=== PATIENT | male | born 1945 | race Caucasian/White ===

== ENCOUNTER 2017-05-10 08:23 | Day surgery (SDC) | payer MEDICARE, MEDICAID ==
--- NOTE | 2017-04-26 11:37 | HP ---
PREOPERATIVE HISTORY AND PHYSICAL: DATE OF SURGERY/ADMISSION: 05/10/17 SHAKE OUT WORKER: Dr. Garcia. PROCEDURE: Left wrist carpal tunnel release. CHIEF COMPLAINT: Left hand numbness and tingling. HISTORY OF PRESENT ILLNESS: This is a 71-year-old male who complains of numbness and tingling in his left hand for several months. He has had a nerve conduction study performed years ago that revealed carpal tunnel syndrome. Recently, his symptoms are much worse, especially at nighttime. He is waking up in the middle of the night very frequently with numbness in his hand and it is quite bothersome. It limits his activities to some degree. The patient denies injury. He is interested in surgical intervention at this time in the form of a left wrist carpal tunnel release and has consented to proceed. He is treated by Dr. Garcia for atrial fibrillation and he is on Coumadin. We will plan on having him stay on his Coumadin perioperatively. He has been cardioverted several times because of being symptomatic from the atrial fibrillation, specifically being short of breath. The most recent cardioversion was in December or January 2017. He has followed regularly with Dr. Garcia and we will receive medical clearance from Dr. Garcia prior to proceeding with surgery. PAST MEDICAL HISTORY: 1. Atrial fibrillation. 2. Hypertension. PAST SURGICAL HISTORY: 1. Left knee surgery. 2. Cholecystectomy. 3. Tonsillectomy. CURRENT MEDICATIONS: 1. Amiodarone HCL 200 mg daily. 2. Lisinopril 2.5 mg daily. 3. Metoprolol tartrate 50 mg daily. 4. Warfarin sodium 5 mg, alternate with 6 mg as directed by PCP. ALLERGIES: No known drug allergies. FAMILY MEDICAL HISTORY: Noncontributory. SOCIAL HISTORY: The patient is retired. He is a former smoker, he quit in 1978. He denies recreational drug use. He does admit to alcohol use on occasion. REVIEW OF SYSTEMS: General: Negative for fevers, chills, or night sweats. No known anesthesia problems. HEENT: Negative for headache, lightheadedness, or syncopal episodes. Integumentary: Negative for abrasions, lesions, or open wounds. Cardiothoracic: Positive for history of hypertension and atrial fibrillation. Negative for chest pain, palpitations, or edema. Pulmonary: Negative for shortness of breath with exertion, chronic cough, COPD. GI: Negative for nausea, vomiting, diarrhea, constipation, or GERD. : Negative for nocturia, urinary frequency, urgency, history of UTIs, or kidney problems. Musculoskeletal: Positive for current complaint. Negative for chronic or intermittent back pain. Neurological: Negative for history of seizure, stroke, or epilepsy. Negative for anxiety or depression. Endocrine: Negative for diabetes or thyroid issues. Hematologic: Positive for easy bruising and bleeding secondary to being on warfarin. Negative for history of DVT. Infectious Disease: Negative for history of MRSA, hepatitis C, or HIV. PHYSICAL EXAMINATION GENERAL: Well-developed, well-nourished 71-year-old male in no acute distress. He is awake, alert and oriented x3. VITAL SIGNS: Height 5 feet 11 inches, weight 215 pounds. Pulse rate 52, blood pressure 118/90. HEENT: Normocephalic, atraumatic. Pupils are equal, round, and reactive to light and accommodation. NECK: Supple. No palpable lymph nodes. Throat is clear. PULMONARY: Lungs are clear to auscultation bilaterally. No wheezes, rales, or rhonchi. CARDIOVASCULAR: Regular rate and rhythm. S1, S2. No murmurs, rubs, or gallops. No edema. ABDOMEN: Positive bowel sounds, soft, nontender. NEUROLOGICAL: Alert and oriented x3. Cranial nerves II through XII are intact. Sensation is intact to light touch. MUSCULOSKELETAL: On exam of his right upper extremity, he has decreased sensation to light touch in the median nerve distribution, specifically the middle finger. He has normal sensation in the ulnar nerve distribution. Positive median nerve compression test. Negative Phalen's test. There is mild weakness with thumb abduction and some mild thenar atrophy noted. IMPRESSION: Left wrist carpal tunnel syndrome. PLAN: The patient is scheduled to undergo a left wrist carpal tunnel release with Dr. Ogden on 05/10/17. He will return to the office 10 to 14 days postoperatively for followup and suture removal. A prescription for Ultracet was e-scribed to the patient's pharmacy for postoperative pain management. We will obtain clearance from Dr. Garcia prior to proceeding with surgery and the patient will stay on his Coumadin perioperatively. TOY RAMOS [id number]/[facility] #: [id number] [facility]ITAL[facility]
[2017-05-10] MEDS ORDERED: Buffered Lidocaine 0.9% SYRIN* 5 ML/SYR SYRINGE ONE (08:34)
[2017-05-10] MEDS ORDERED: Lidocaine 1% INJ* 10 MG/ML 30 ML SDV ONE (08:37)
[2017-05-10] MEDS ORDERED: Midazolam* 1 MG/ML 2 ML VIAL (2 MG) ONE ×2 (08:53→09:35)
[2017-05-10] MEDS ORDERED: fentaNYL* 50 MCG/ML 2 ML VIAL (100 MCG VIAL) ONE (08:53)
[2017-05-10] MEDS ORDERED: Propofol* 10 MG/ML 20 ML BTL IV PUSH ONE (09:44)
[2017-05-10 10:19] VITALS: BP 109/72
--- NOTE | 2017-05-11 02:39 | OP ---
DATE OF OPERATION: 05/10/17 [facility] DATE OF : 45 SURGEON: Dr. Ogden. WARP KNITTER HELPER: TOY Quiroga. ANESTHESIOLOGIST: Tia Morrison MD ANESTHESIA: Local MAC. PRE-OP DIAGNOSIS: Left carpal tunnel syndrome. POST-OP DIAGNOSIS: Left carpal tunnel syndrome. PROCEDURE: Left carpal tunnel release. ESTIMATED BLOOD LOSS: Zero. TOURNIQUET TIME: Five minutes. INDICATIONS FOR PROCEDURE: Stalin is a 71-year-old man with numbness and tingling in the median nerve distribution of his left hand. He presents for left carpal tunnel release. DESCRIPTION OF PROCEDURE: The patient was brought to the operating room, was given a sedation anesthetic, and a local infiltration of 10 cc of 1% plain lidocaine in the palm of his left hand. The skin of his left hand and forearm were prepped and draped in the usual sterile fashion. The hand and forearm were exsanguinated and the tourniquet elevated to 250 mmHg. A longitudinal incision was made in the palm in the line with the ring finger, dissected through the subcutaneous tissue down to the transverse carpal ligament. The ligament was divided sharply with a knife, and then more proximally with the scissors. The nerve was dissected free from the surrounding tissue and there was an area of moderate compression in the mid portion of the ligament. The wound was irrigated and skin edges were reapproximated with 4- 0 nylon suture. The wound was dressed with Xeroform, 4x4, Webril, and an Kenneth wrap. The patient tolerated the procedure well and was brought to the recovery room in good condition. [id number]/[facility] #: [id number] [facility]
== END 2017-05-10 10:29 | disposition home or self-care (01) ==
LOC: OREAST 08:23
PROVIDERS: ATTEND Orthopaedic Surgery
DX: G56.02 Carpal tunnel syndrome, left upper limb (principal); I48.91 Unspecified atrial fibrillation; Z79.01 Long term (current) use of anticoagulants; Z87.891 Personal history of nicotine dependence
CPT/HCPCS: J2001; J2250; J2704; J3010

== ENCOUNTER 2017-06-30 08:45 | Inpatient (IN) | payer MEDICAID, MEDICARE ==
[2017-06-30] MEDS ORDERED: Midazolam* 1 MG/ML 5 ML VIAL (5 MG) ONE (08:55)
[2017-06-30] MEDS ORDERED: Aspirin TAB* 325 MG ONE (08:56)
[2017-06-30] MEDS ORDERED: NS 0.9% 1000 ML* 1,000 ML IV ONE ×2 (09:02→10:18)
[2017-06-30] MEDS ORDERED: Aspirin Low Dose CHEW TAB* 81 MG PO ONE (09:02)
[2017-06-30] MEDS ORDERED: Midazolam* 1 MG/ML 5 ML VIAL (5 MG) SLOW PUSH ONE (09:04)
--- NOTE | 2017-06-30 09:22 | RAD ---
HISTORY: Chest pain COMPARISONS: September 07, 2015 VIEWS:1: Single frontal portable view of the chest at 9:05 AM FINDINGS: LINES AND TUBES: None. CARDIOMEDIASTINAL SILHOUETTE: The cardiac silhouette is enlarged. The cardiomediastinal silhouette is otherwise normal for portable technique. PLEURA: The costophrenic angles are sharp. No pleural abnormalities are noted. LUNG PARENCHYMA: There is a mild diffuse reticular pattern with indistinct pulmonary vessels. ABDOMEN: The upper abdomen is clear. There is no subphrenic gas. BONES AND SOFT TISSUES: No bone or soft tissue abnormalities are noted. IMPRESSION: CARDIOMEGALY WITH MILD PULMONARY INTERSTITIAL EDEMA
[2017-06-30 09:26] LABS: Hematocrit 44 % (42-52); Mean Corpuscular HGB Conc 34 g/dl (31-36); Mean Corpuscular Hemoglobin 29 pg (27-31); Mean Corpuscular Volume 84 fL (80-94); Mean Platelet Volume 8 um3 (7.4-10.4); Red Blood Count 5.28 10^6/ul (4.0-5.4); Red Cell Distribution Width 14 % (10.5-15); White Blood Count 11.1 10^3/ul (3.5-10.8)
[2017-06-30 09:41] LABS: Albumin 3.9 g/dL (3.2-5.2); BUN/Creatinine Ratio 16.2 (8-20); EGFR African American 83.7 (>60); EGFR Non-African American 65.1 (>60); Globulin 2.2 g/dL (2-4); Potassium 3.8 mmol/L (3.5-5.0); Total Bilirubin 1.5 mg/dL (0.2-1.0); Total Protein 6.1 g/dL (6.4-8.9)
[2017-06-30 09:44] LABS: Troponin I 0.01 ng/mL (<0.04)
[2017-06-30] MEDS ORDERED: Furosemide IV* 10 MG/ML VIAL (40 MG) IV SLOW PU ONE (10:07)
[2017-06-30] MEDS ORDERED: cefTRIAXone(*) 1 GM in NS 0.9% 50 ML* 50 ML IVPB ONE (10:20)
[2017-06-30] MEDS ORDERED: Azithromycin IV(*) 500 MG in NS 0.9% 250 ML* 250 ML IVPB ONE (10:20)
[2017-06-30] MEDS ORDERED: Acetaminophen TAB* 325 MG PO PRN (11:37)
[2017-06-30] MEDS ORDERED: Enoxaparin(*) 100 MG/ML SYR SUBCUT ONE (11:58)
[2017-06-30 11:59] LABS: Magnesium 1.5 mg/dL (1.9-2.7)
[2017-06-30] MEDS ORDERED: Metoprolol Tartrate TAB* 25 MG PO SCH (12:00)
[2017-06-30 12:09] LABS: TSH (Thyroid Stimulating Horm) 4.11 mcIU/mL (0.34-5.60)
--- NOTE | 2017-06-30 14:52 | CONSULT ---
Subjective Date of Service: 06/30/17 Interval History: Date of admission and consult: 06/30/2017 Primary Care Physician: Luis M Argueta MD Skydiving Instructor: Dr. Garcia Service: Hospitalist CC: chest pain, lightheadedness Reason for consult: Wide complex tachycardia HPI: Mr. Villeda is a 72 year old man with a history of highly symptomatic atrial fibrillation and flutter on amiodarone with a mild cardiomyopathy followed by Dr. Garcia. This morning about 3:00 AM he had coughing spells and pressure in his chest like a vice. He felt nauseated. He was lightheaded but no more than usual when he is in an arrhythmia. This felt different than his usual arrhythmia, it was worse but he cannot be specific how. He eventually called a friend who called EMS. He was found with a wide complex tachycardia. When he came to the ER he was diaphoretic and looked ill. I later discussed with Dr. Sosa that a cuff pressure was not able to be obtained due to the rapid rate but he did have some amount of radial pulse that was able to be felt. He ultimately underwent urgent cardioversion with sedation. He now feels well and denies any dyspnea or chest pain or lightheadedness. Yesterday he was briefly dizzy but this resolved. He has otherwise been feeling well. He has received IVF, IV abx and IV lasix. PMH: Hypertension Atrial Fibrillation Asthma arthritis bleeding problems Surgical Hx: Knee Surgery - left Gallbladder, Tonsillectomy Cardioversion - (09/03/2013) CV to NSR no complications Cardioversion - (12/21/2013) In [facility] with SOB and rapid A. FIb CV to NSR Cardioversion - (12/03/2016) CV to NSR FH: Hypertension, Stroke. SH: Marital: Single.Lives With: Alone.Occupation: Retired. Personal Habits: Smoking: Patient is a former smoker.Cigarette Use: Former Cigarette Smoker.Alcohol: Denies alcohol use.Drug Use: Denies Drug Use.Daily Caffeine: Consumes on average 5-10 cups of regular coffee per day, Consumes on average 3 sodas per day.Exercise Type: Exercises regularly. Medications Active Medications: Acetaminophen (Tylenol Tab*) 650 mg PO Q4H PRN PRN Reason: FEVER/PAIN Amiodarone HCl (Cordarone Tab*) 200 mg PO DAILY [facility] Aspirin (Aspirin Low Dose Tab*) 81 mg PO DAILY [facility] Atorvastatin Calcium (Lipitor*) 40 mg PO 1700 [facility] Enoxaparin Sodium (Lovenox(*)) 100 mg SUBCUT ONCE ONE Stop: 07/01/17 00:02 Lisinopril (Prinivil Tab*) 2.5 mg PO DAILY [facility] Metoprolol Tartrate (Lopressor Tab*) 25 mg PO Q8H [facility] Home Medications: Warfarin TAB(*) [Coumadin TAB(*)] 3 mg PO DAILY 09/03/13 [History Confirmed ] Amiodarone TAB* [Cordarone Tab*] 200 mg PO DAILY 12/21/13 [History Confirmed ] Lisinopril [Lisinopril 2.5 MG-] 2.5 mg PO DAILY 12/03/16 [History Confirmed ] Metoprolol Tartrate TAB* [Lopressor TAB*] 50 mg PO DAILY 06/30/17 [History Confirmed 06/30/17] Review of Systems - Measurements Intake and Output: Intake and Output Last 24 Hours 06/28/17 06/29/17 06/30/17 07/01/17 06:59 06:59 06:59 06:59 Intake Total 1250 Balance 1250 Intake: IV Fluids 1250 - Review of Systems Constitutional Symptoms: Negative: Weight Gain, Weight Loss, Weakness, Fatigue, Fever, Night Sweats HEENT: Negative: Change in Hearing, Vertigo Eyes: Negative: Change in Vision, Double Vision Thyroid: Positive: Sweatiness Negative: Heat Intolerance, Tremor, Frequent Defecation, Primary Hypothyroidism, Primary Hyperthyroidism, Weight Loss, Weight Gain Pulmonary: Positive: Cough Negative: Normal, Sputum, Hemoptysis, Wheezing, Respiratory Distress, Shortness of Breath, COPD, Asthma, Exercise Intolerance, Home Oxygen, Other Cardiology: Positive: Chest Pain, Shortness of Breath, Faintness Negative: Swelling of Ankles, Peripheral Vascular Dis, Edema, Syncope, Claudication, Paroxysmal Nocturnal Dyspnea, Orthopnea Gastroenterology: Positive: Nausea Negative: Abdominal Pain, Vomiting, Anorexia, Indigestion, Difficulty Swallowing, Heartburn, Constipation, Diarrhea, Haematemesis, Melena Genital - Urinary: Negative: Dysuria, Hematuria Musculoskeletal: Negative: Joint Pain, Joint Stiffness, Arthritis, Osteoporosis, Low Back Pain Endocrinology: Negative: Obesity, Diabetic Foot Ulcers, Polydipsia, Polyuria Hematologic/Lymphatic: Positive: Use of Anticoagulant Negative: Anemia, Easy Brusing, Hx Leukemia, Hx Lymphoma, Use of Antiplatelet Drugs, Other Neurology: Negative: Headaches, Migraines, Change in Vision, Diplopia, Change in Balancing, Change in Coordination, Change in Memory, Change in Speech, Change in Sphincter Function, Change in Walking, Numbness\Paresthesiae Psychiatry: Negative: Depression, Anxiety, Weight Change, Guilt Feelings Allergic/Immunologic: Negative: Hx Anaphylaxis, Hx Angioedema, Hx HIV Review of Systems Statement: All other review of systems negative, unless stated above. Objective Vital Signs: Temp Pulse Resp BP Pulse Ox 99.2 F 58 20 95/78 98 06/30/17 13:47 06/30/17 13:47 06/30/17 13:47 06/30/17 13:47 06/30/17 13:47 Appearance: nad, pleasant Ears/Nose/Mouth/Throat: Clear Oropharnyx Neck: NL Appearance and Movements; NL JVP, Trachea Midline Respiratory: Symmetrical Chest Expansion and Respiratory Effort, - - crackles left base Cardiovascular: NL Sounds; No Murmurs; No JVD, RRR, No Edema Abdominal: NL Sounds; No Tenderness; No Distention Extremities: No Edema Skin: No Rash or Ulcers Neurological: Alert and Oriented x 3 Laboratory Results: 06/30/17 09:16 06/30/17 09:16 INR (Anticoag Therapy) 1.58 (0.89-1.11) H 06/30/17 09:16 APTT 29.4 seconds (26.0-36.3) 06/30/17 09:16 Total Bilirubin 1.50 mg/dL (0.2-1.0) H 06/30/17 09:16 AST 18 U/L (13-39) 06/30/17 09:16 ALT 28 U/L (7-52) 06/30/17 09:16 Alkaline Phosphatase 67 U/L (34-104) 06/30/17 09:16 B-Natriuretic Peptide 45 pg/mL (-100) 06/30/17 09:16 Total Protein 6.1 g/dL (6.4-8.9) L 06/30/17 09:16 Albumin 3.9 g/dL (3.2-5.2) 06/30/17 09:16 Globulin 2.2 g/dL (2-4) 06/30/17 09:16 Albumin/Globulin Ratio 1.8 (1-3) 06/30/17 09:16 TSH 4.11 mcIU/mL (0.34-5.60) 06/30/17 09:16 mg 1.5 06/30/17 06/30/17 09:16 12:18 Troponin I 0.01 0.09 H* Diagnostic Imaging: Cardiac Testing: Echocardiogram - (07/21/2015) Mildly reduced LV function EF 45-50% Mild AR and MR Moderate TR Mild Pulm HTN Moderately Dilated Asc Aorta 4.3 cm Stress Test - (10/03/2009) Chemical Nuclear Stress: Mild inferior ischemia, TID 1.13 No LV analysis EKG Data: EKG 08/2013: Rate controlled atrial flutter EKG 11/28/2016: AFib/flutter with IVCD/LAD with LBBB configuration EKG 05/01/2017: Sinus bradycardia, IVCD/LAD with LBBB configuration EKG [facility] 06/30/2017: WCT rate 170 bpm, probable p waves visualized just prior to QRS complex right precordial leads, clear axis change, clear axis change in 1/aVL/and inferior leads. ST elevation in aVR with ST depression inferior leads. EKG post-cardioversion 06/30/2017: NSR, IVCD/LAD with LBBB configuration, ST depression horizontal V4-V6 Assessment/Plan Stalin Villeda is a 72 year old man with a history of highly symptomatic paroxysmal atrial fibrillation/flutter on amiodarone and warfarin, hypertension , mild cardiomyopathy presents with highly symptomatic wide complex tachycardia s/p urgent electrical cardioversion now asymptomatic. Mg was 1.5. Now asymptomatic s/p cardioversion. No syncope. - Ok to transfer to telemetry - Check AM EKG - Check echo for LVEF evaluation - Replace Mg and K - Start daily oral magnesium (ordered) - Change metoprolol to 25 mg PO TID for now (ordered). Depending on LVEF would change his tartrate to succinate or twice daily tartrate, I do not think he was being covered by a beta-bhaskar at time of arrhythmia. - Continue amiodarone 200 mg PO daily - Give lovenox therapeutic x 1 around midnight (ordered) - Hold warfarin - Will discuss with patient regular convenience recycle center tech, Dr. Garcia tomorrow. Further evaluation and management to be determined. Thank you for allowing me to participate in the cardiovascular care of this patient. Please do not hesitate to contact me with questions or concerns.
[2017-06-30] MEDS: Metoprolol Tartrate TAB* 25 MG PO SCH ×2 (16:16→22:33)
--- NOTE | 2017-06-30 16:26 | HP ---
ATTENDING ADDENDUM NOW INCLUDED ON THIS REPORT * CC: Dr. Argueta; Dr. Martinez * HISTORY AND PHYSICAL: DATE OF ADMISSION: 06/30/17 PRIMARY CARE PROVIDER: Dr. Argueta. ATTENDING PHYSICIAN WHILE IN THE HOSPITAL: Yancy Gamino MD * (report dictated by Morris Alonso NP) CONSULTING CAKE MAKER: Dr. Martinez. CHIEF COMPLAINT: 1. Chest pressure. 2. Palpitations. HISTORY OF PRESENT ILLNESS: Mr. Villeda is a 72-year-old male patient. He has a history of hypertension, AFib, asthma, and arthritis. He comes in to the ER today, stating that he woke up around 4:30 this morning. He was not feeling very well. He felt shaky, particularly in his arms. He felt palpitations in his chest, he was sweaty, he felt short of breath. He was having some chest pressure. He says his chest felt like it was in a vice. He waited until about 8 o'clock and things were not getting any better, so he called his friend who called 911. The patient denies any syncope. He states he has been taking his current medications very long. He has not missed any of his medications. There has been no change in medications. He does not admit to having any nausea , vomiting, or diarrhea. He does state that he has not had any fevers or cough. 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 He came into the ER and ultimately was found to be in what appeared to be a wide complex tachycardia. It may have been AFib with aberrancy, but he did have significant ST depressions. It was noted that his blood pressure was around the 80s. There was concern that he was unstable and he was actually delivered a shock of 100 joules and he converted into a sinus rhythm and because of this, we were asked to evaluate for admission. PAST MEDICAL HISTORY: Significant for: 1. Hypertension. 2. AFib. 3. Asthma. 4. Arthritis. PAST SURGICAL HISTORY: The patient has had a right upper extremity surgery with pinning. He has had a right total knee replacement and he has had a laparoscopic cholecystectomy. MEDICATIONS: His home meds according to the pill bottles include: 1. Lopressor 50 mg p.o. daily. 2. Lisinopril 2.5 mg daily. 3. Amiodarone 200 mg daily. 4. Warfarin 3 mg daily and 5 mg on Saturday. ALLERGIES: His allergies to medications include no known drug allergies. FAMILY HISTORY: His mother is unknown. She when the patient was 2. The father's history, he does have a history of hypertension and CVA. SOCIAL HISTORY: He is a former smoker. He says he cannot remember when he quit , but he said it was a long time ago. He does not drink alcohol. Surrogate decision maker is his friend, Jane. REVIEW OF SYSTEMS: There is no documented fever. He denied any significant weight change. There is no double vision. There is no ear discharge. He denies having any rhinorrhea. No sore throat, no thyroid enlargement. Denies having any chest pain. There is no orthopnea. There is no nocturnal dyspnea. He denies having any abdominal pain. There is no nausea or any vomiting. There is no dysuria, no frequency. There was no loss of consciousness, no pruritus, and there were no skin ulcerations. Review of 14 systems was completed, all others negative. PHYSICAL EXAMINATION GENERAL: At this time, Mr. Villeda is a 72-year-old male patient. He is sitting in the ER stretcher. He does not appear to be in any acute distress. VITAL SIGNS: Initially when he came in, his blood pressure was 90/70 with a pulse of 172, respirations 28, O2 sat 94%, temperature 99.1. His blood pressure now is 119/70 with a pulse of 66, respirations 20, O2 sat 96%. HEENT: Head is atraumatic and normocephalic. Eyes: EOMs are intact. Sclerae are anicteric and not pale. Throat: Oral mucosa appears to be moist. No oropharyngeal erythema. NECK: Supple. LUNGS: Clear to auscultation. No wheezes, rales, or rhonchi. HEART: Sounds S1, S2. Regular rate and rhythm. No murmurs, rubs, or gallops. ABDOMEN: Soft. It was flat, nontender. Bowel sounds were present. EXTREMITIES: Pulses were 2+ throughout. No peripheral edema. He is able to move all 4 extremities with 5/5 strength. NEUROLOGIC: He is awake, he is alert, he is oriented x3. His tongue is midline. His entertainment dancer were equal. He had no gross focal neurological deficits. SKIN: Intact. LABORATORY DATA/DIAGNOSTIC STUDIES: The labs today revealed a WBC of 11.1, RBC of 5.28, hemoglobin of 15.0, hematocrit of 44, and a platelet count of 206. The INR was 1.58. PTT was 29.4. The sodium was 138, potassium was 3.8, chloride 108, bicarb 21, BUN 18, creatinine 1.11, glucose 125. Lactate 2.7. Calcium 9. Total bili 1.5, AST 18, ALT 28, alk phos 67. Troponin 0.01. Albumin of 3.9. He did have a EKG obtained today, which was post cardioversion. It reveals a sinus rhythm, rate of 87. He had no ST elevations. He did have a left bundle- branch block. The EKG from [facility] does show again wide-complex tachycardia, his rate of 170, he does have diffuse ST depression. Old medical records were reviewed. Last EF was known to be 45% to 40%. ASSESSMENT AND PLAN: Mr. Villeda is a 72-year-old male patient coming in to the ER today with complaints of not feeling feel, shaking, and having fluttering in his chest and chest discomfort. On evaluation, he was found to have a wide- complex tachycardia and being unstable. He was cardioverted. Hospitalist service was asked to evaluate for admission. He will be admitted under observation status for: 1. Wide-complex tachycardia. Certainly, this could be V-tach or possibly could just be AFib with aberrancy. Dr. Martinez was consulted.. The plan at this point is to cycle his troponins. He will be evaluating him. I do note that he takes Lopressor immediate release tartrate once a day in the morning. So, Dr. Martinez and I felt that the patient should split this now to 25 in the morning and 25 at night and see if this helps with better rate control, and we will continue his amiodarone. His INR is 1.5. I have increased his Coumadin and we will continue to follow him closely. 2. Hypertension. Continue meds as prescribed. 3. Atrial fibrillation. Continue his meds as prescribed. We are again changing around the Lopressor and increasing his beta-bhaskar. 4. History of asthma. It is not an active tissue. 5. Arthritis. Follow up with his primary. 6. DVT prophylaxis. He will be placed on SCDs. His INR is 1.58. We are increasing his Coumadin to 5. 7. Code status, full code. 8. Fluids, electrolytes, and nutrition. He can have a heart healthy diet with no caffeine. TIME SPENT: Time spent on the admission was approximately 60 minutes; greater than half the time spent [id number] with the patient, obtaining my history and physical, the other half time was spent going over the plan of care with the patient and implementing the plan of care. I did discuss the plan of care with my attending, Dr. Gamino; she is in agreement. MORRIS ALONSO NP ADDENDUM: Mr. Villeda is a 72-year-old male with history of atrial fibrillation with several cardioversions in the past, on amiodarone and Coumadin, who presents to the hospital with wide-complex ventricular tachycardia with heart rate in the 170s. At this point, he was unstable, diaphoretic, complaining of chest pain with systolic pressures in the 80s. He was cardioverted with 100 joules in the emergency department and after one shock, he converted to sinus rhythm. He is going to be admitted to the intensive care unit for further monitoring. Cardiology consult is going to be obtained. Of note, he was noted to have hypomagnesemia and his magnesium is going to be replaced. YANCY GAMINO MD [id number]/[facility] #: [id number]/[facility] #: [id number] KE[facility]
--- NOTE | 2017-06-30 16:34 | HP ---
HISTORY AND PHYSICAL:* ADDENDUM: Mr. Villeda is a 72-year-old male with history of atrial fibrillation with several cardioversions in the past, on amiodarone and Coumadin, who presents to the hospital with wide-complex ventricular tachycardia with heart rate in the 170s. At this point, he was unstable, diaphoretic, complaining of chest pain with systolic pressures in the 80s. He was cardioverted with 100 joules in the emergency department and after one shock, he converted to sinus rhythm. He is going to be admitted to the intensive care unit for further monitoring. Cardiology consult is going to be obtained. Of note, he was noted to have hypomagnesemia and his magnesium is going to be replaced. [id number]/[facility] #: [id number] [facility]
[2017-06-30] MEDS ORDERED: Warfarin TAB(*) 5 MG PO SCH (17:00)
[2017-06-30] MEDS ORDERED: Magnesium Sulfate 3 GM IV IVPB ONE ×2 (17:00)
[2017-06-30] MEDS: Atorvastatin* 40 MG TAB PO SCH (17:23)
[2017-07-01] MEDS ORDERED: Enoxaparin(*) 100 MG/ML SYR SUBCUT ONE (00:01)
[2017-07-01 05:05] LABS: Hematocrit 40 % (42-52); Hemoglobin 13.8 g/dl (14.0-18.0); Mean Corpuscular HGB Conc 35 g/dl (31-36); Mean Corpuscular Hemoglobin 29 pg (27-31); Mean Corpuscular Volume 84 fL (80-94); Mean Platelet Volume 8 um3 (7.4-10.4); Red Blood Count 4.73 10^6/ul (4.0-5.4); Red Cell Distribution Width 14 % (10.5-15); White Blood Count 7.9 10^3/ul (3.5-10.8)
[2017-07-01 05:16] LABS: BUN/Creatinine Ratio 18.8 (8-20); Blood Urea Nitrogen 18 mg/dL (6-24); CO2 Carbon Dioxide 26 mmol/L (22-32); Calcium 8.6 mg/dL (8.6-10.3); Chloride 110 mmol/L (101-111); Glucose 104 mg/dL (70-100); Magnesium 2.2 mg/dL (1.9-2.7); Sodium 136 mmol/L (133-145)
[2017-07-01 05:20] LABS: Troponin I 0.31 ng/mL (<0.04)
[2017-07-01] MEDS: Metoprolol Tartrate TAB* 25 MG PO SCH ×3 (07:30→22:48)
[2017-07-01] MEDS: Lisinopril TAB* 5 MG PO SCH (08:48)
[2017-07-01] MEDS: Amiodarone TAB* 200 MG PO SCH (08:50)
[2017-07-01] MEDS: Magnesium Oxide TAB* 400 MG PO SCH (08:50)
[2017-07-01] MEDS: Aspirin Low Dose CHEW TAB* 81 MG PO SCH (08:50)
[2017-07-01] MEDS ORDERED: diPHENhydraMINE PO* 25 MG PO SCH (12:26)
[2017-07-01] MEDS ORDERED: Diazepam TAB(*) 5 MG PO SCH (12:26)
[2017-07-01] MEDS ORDERED: Perflutren Lipid Microsphere* 3 ML VIAL ONE (13:27)
[2017-07-01] MEDS: Atorvastatin* 40 MG TAB PO SCH (16:09)
--- NOTE | 2017-07-01 16:23 | ECHO ---
Patient: YENI CANNON [facility] Rec#: [id number] : 1945 Date: 07/01/2017 Age: 72y Height: 182.88 cm / 72.0 in Weight: 99.79 kg / 219.9 lbs Sex: M BSA: 2.22 Room#: 440 Admit Date#: 06/30/2017 Type: Inpatient Referring: Yancy Gamino MD Reading: Mariano Garcia MD Garbage Collector Driver: Brisa Hill TRAVIS CC: Luis M Argueta MD Transthoracic Echocardiogram Indication: V Tach BP: 125/72 HR: 65 Rhythm: NSR Findings History: A-fib/flutter,cardiomyopathy,asthma,arthritis,former smoker,SOB. Technical Comments: The study is technically limited due to patient body habitus. The study is technically limited due to the patient's smoking history. Left Ventricle: The left ventricular chamber size is normal. Mild to moderate concentric left ventricular hypertrophy is observed. Left ventricular systolic function is at the lower limits of normal. The estimated ejection fraction is 45-50%. The patient was unable to perform a Valsalva maneuver. Left Atrium: The left atrium is mildly dilated. Right Ventricle: The right ventricular cavity size is normal. The right ventricular global systolic function is mildly reduced. Right Atrium: The right atrium is mildly dilated. Aortic Valve: The aortic valve is trileaflet. There is mild to moderate aortic regurgitation. There is no evidence of aortic stenosis. Mitral Valve: The mitral valve leaflets appear normal. There is a trace of mitral regurgitation. There is no evidence of mitral stenosis. Tricuspid Valve: The tricuspid valve leaflets are normal. There is mild to moderate tricuspid regurgitation. There is evidence of moderate pulmonary hypertension. There is no tricuspid stenosis. Pulmonic Valve: The pulmonic valve appears normal. There is mild pulmonic regurgitation. There is no pulmonic stenosis. Pericardium: A pericardial fat pad is visualized. Aorta: There is mild dilatation of the ascending aorta.3.6 cm There is no dilatation of the aortic arch. There is moderate dilatation of the aortic root. Pulmonary Artery: The main pulmonary artery appears normal. Venous: The inferior vena cava is dilated. There is an approximate 50% respiratory change in the inferior vena cava dimension. Contrast: Definity was used to optimize study. A total of 5ml used. Intravenous contrast was used to enhance endocardial border definition. Summary: There are no significant changes when compared to the previous study done on 07/21/16 Conclusions Mild to moderate concentric left ventricular hypertrophy is observed. Left ventricular systolic function is at the lower limits of normal. The estimated ejection fraction is 45-50%. There is mild to moderate aortic regurgitation. There is no evidence of aortic stenosis. There is a trace of mitral regurgitation. There is mild to moderate tricuspid regurgitation. There is evidence of moderate pulmonary hypertension. Measurements Name Value Normal Range RVIDd (AP) 2D 2.8 cm (0.9 - 2.6) RVDdMajor (2D) 4.3 cm (2.2 - 4.4) RAd ISD 4CH 5.9 cm (3.4 - 4.9) RA (A4C)W 4.2 cm (2.9 - 4.6) IVSd (2D) 1.2 cm (0.6 - 1) LVPWd (2D) 1.3 cm (0.6 - 1) LVIDd (2D) 5.6 cm (3.6 - 5.4) LVIDs (2D) 3.7 cm - LV FS (2D) 33 % (25 - 45) Aortic Annulus 2.2 cm (1.4 - 2.6) Ao root diameter (2D) 4.5 cm (2.1 - 3.5) Ascending Ao 3.6 cm (2.1 - 3.4) Aortic arch 3.1 cm (1.8 - 3.4) Descending Ao 0.5 cm - LA dimension (AP) 2D 4.2 cm (2.3 - 3.8) LAd ISD 4CH 7.4 cm (2.9 - 5.3) LA ISD 4CH W 4.8 cm (2.5 - 4.5) Name Value Normal Range LA ESV SP 4CH (A/L) 88 ml - LA ESV SP 2CH (A/L) 76 ml - LA ESV BP (A/L) 83 ml - LA ESV BP (A/L) index 37.46 ml/m2 - LA ESV SP 4CH (MOD) 85 ml - LA ESV SP 2CH (MOD) 72 ml - Name Value Normal Range MV E-wave Vmax 0.7 m/sec - MV deceleration time 270 msec - MV A-wave Vmax 0.7 m/sec - MV E:A ratio 1.05 ratio - LV septal e' Vmax 0.06 m/sec - LV lateral e' Vmax 0.1 m/sec - LV E:e' septal ratio 11.67 ratio - LV E:e' lateral ratio 7 ratio - Name Value Normal Range AV Vmax 1.6 m/sec - AV VTI 30.5 cm - AV peak gradient 10.32 mmHg - AV mean gradient 5.4 mmHg - LVOT Vmax 1.2 m/sec - LVOT VTI 24.5 cm - LVOT peak gradient 5.46 mmHg - LVOT mean gradient 2.47 mmHg - AR PHT 441 msec - AR peak gradient 68.97 mmHg - Name Value Normal Range TR Vmax 3.1 m/sec - TR peak gradient 39 mmHg - RAP 8 mmHg - RVSP 47 mmHg - IVC diameter 2.1 cm - Name Value Normal Range PV Vmax 1 m/sec - PV peak gradient 4.35 mmHg -
--- NOTE | 2017-07-01 17:18 | PN ---
Subjective Date of Service: 07/01/17 Interval History: Patient says his symptoms have resolved . No pain or palpitations. Objective Active Medications: Acetaminophen (Tylenol Tab*) 650 mg PO Q4H PRN PRN Reason: FEVER/PAIN Amiodarone HCl (Cordarone Tab*) 200 mg PO DAILY [facility] Last Admin: 07/01/17 08:50 Dose: 200 mg Aspirin (Aspirin Low Dose Tab*) 81 mg PO DAILY [facility] Last Admin: 07/01/17 08:50 Dose: 81 mg Atorvastatin Calcium (Lipitor*) 40 mg PO 1700 [facility] Last Admin: 07/01/17 16:09 Dose: 40 mg Diazepam (Valium Tab(*)) 5 mg PO ONCALL [facility] Stop: 07/02/17 12:25 Diphenhydramine HCl (Benadryl Po*) 25 mg PO ONCALL [facility] Stop: 07/02/17 12:25 Sodium Chloride (Ns 0.9% 1000 Ml*) 1,000 mls @ 75 mls/hr IV .per rate [facility] Lisinopril (Prinivil Tab*) 2.5 mg PO DAILY [facility] Last Admin: 07/01/17 08:48 Dose: 2.5 mg Magnesium Oxide (Magox 400 Tab*) 400 mg PO DAILY [facility] Last Admin: 07/01/17 08:50 Dose: 400 mg Metoprolol Tartrate (Lopressor Tab*) 25 mg PO Q8H [facility] Last Admin: 07/01/17 16:09 Dose: 25 mg Vital Signs 07/01/17 15:32 Temperature 98.3 F Pulse Rate 57 Respiratory 20 Rate Blood Pressure 128/80 (mmHg) O2 Sat by Pulse 96 Oximetry Oxygen Devices in Use Now: None Appearance: Elderly gentleman lying in bed in NAD Eyes: No Scleral Icterus Ears/Nose/Mouth/Throat: Clear Oropharnyx, - - Poor dentition Neck: No Thyroid Enlargement, Masses Respiratory: Clear to Auscultation Cardiovascular: RRR, - - S1 S2 guanaco Abdominal: No Hepatosplenomegaly Lymphatic: No Cervical Adenopathy Extremities: No Clubbing, Cyanosis Skin: No Rash or Ulcers Neurological: Alert and Oriented x 3 Result Diagrams: 07/01/17 04:26 07/01/17 04:26 Assess/Plan/Problems-Billing Assessment: Patient is a 72 year old gentleman with a known history of atrial fibrillation who presented with a chief complaint of chest paina nd palpitations. - Patient Problems (1) Chest pain Current Visit: Yes Status: Acute Code(s): R07.9 - CHEST PAIN, UNSPECIFIED SNOMED Code(s): 49116011 Comment: Trops elevated. On coumadin. Hold for now. Discussed with cardiology. No heparin drip for now. Cardiac cath in AM (2) Atrial fibrillation Current Visit: Yes Status: Acute Code(s): I48.91 - UNSPECIFIED ATRIAL FIBRILLATION SNOMED Code(s): 40523904 Comment: As per cardiology apparently he has had these symptoms before when he is in rapid atrial fibrillation. Not coincidentally, his symptoms resolved when he went into NSR (3) Hypertension Current Visit: Yes Status: Acute Code(s): I10 - ESSENTIAL (PRIMARY) HYPERTENSION SNOMED Code(s): 79795743 Comment: BP with adequate control. No change in regimen. (4) DVT prophylaxis Current Visit: Yes Status: Acute Code(s): DDJ1681 - SNOMED Code(s): 189204402 Comment: On coumadin (5) Full code status Current Visit: Yes Status: Acute Code(s): Z78.9 - OTHER SPECIFIED HEALTH STATUS SNOMED Code(s): 704468154
[2017-07-01] MEDS ORDERED: NS 0.9% 1000 ML* 1,000 ML IV SCH (23:55)
[2017-07-02 07:08] LABS: Hematocrit 41 % (42-52); Hemoglobin 14.1 g/dl (14.0-18.0); Mean Corpuscular HGB Conc 34 g/dl (31-36); Mean Corpuscular Hemoglobin 29 pg (27-31); Mean Corpuscular Volume 84 fL (80-94); Mean Platelet Volume 8 um3 (7.4-10.4); Red Blood Count 4.91 10^6/ul (4.0-5.4); Red Cell Distribution Width 14 % (10.5-15); White Blood Count 5.5 10^3/ul (3.5-10.8)
[2017-07-02 07:27] LABS: BUN/Creatinine Ratio 18.2 (8-20); Calcium 9.2 mg/dL (8.6-10.3); EGFR African American 109.5 (>60); EGFR Non-African American 85.1 (>60); Potassium 4.6 mmol/L (3.5-5.0)
[2017-07-02] MEDS: Lisinopril TAB* 5 MG PO SCH (08:25)
[2017-07-02] MEDS: Amiodarone TAB* 200 MG PO SCH (08:26)
[2017-07-02] MEDS: Magnesium Oxide TAB* 400 MG PO SCH (08:27)
[2017-07-02] MEDS: Aspirin Low Dose CHEW TAB* 81 MG PO SCH (08:27)
[2017-07-02] MEDS: Metoprolol Tartrate TAB* 25 MG PO SCH ×3 (08:29→23:54)
[2017-07-02] MEDS ORDERED: Lidocaine 1% INJ* 10 MG/ML 30 ML SDV ONE (12:27)
[2017-07-02] MEDS ORDERED: Heparin 2 UNITS/ML IVPREMIX* 3,000 ML IV ONE (12:27)
[2017-07-02] MEDS ORDERED: Iohexol 350 (CONTRAST) 200 ML MDV IV ONE (12:27)
[2017-07-02] MEDS ORDERED: fentaNYL* 50 MCG/ML 2 ML VIAL (100 MCG VIAL) ONE (12:33)
[2017-07-02] MEDS ORDERED: Midazolam* 1 MG/ML 5 ML VIAL (5 MG) ONE (12:33)
--- NOTE | 2017-07-02 16:11 | PN ---
Subjective Date of Service: 07/02/17 Interval History: Seen after [facility] Sat up quickly after cath and had bleeding from femoral puncture prior to floor arrival Bleeding now tamponaded no complaints Objective Active Medications: Acetaminophen (Tylenol Tab*) 650 mg PO Q4H PRN PRN Reason: FEVER/PAIN Amiodarone HCl (Cordarone Tab*) 200 mg PO DAILY [facility] Last Admin: 07/02/17 08:26 Dose: 200 mg Aspirin (Aspirin Low Dose Tab*) 81 mg PO DAILY [facility] Last Admin: 07/02/17 08:27 Dose: 81 mg Atorvastatin Calcium (Lipitor*) 40 mg PO 1700 [facility] Last Admin: 07/01/17 16:09 Dose: 40 mg Sodium Chloride (Ns 0.9% 1000 Ml*) 1,000 mls @ 75 mls/hr IV .per rate [facility] Stop: 07/02/17 19:00 Last Admin: 07/02/17 02:45 Dose: 75 mls/hr Lisinopril (Prinivil Tab*) 2.5 mg PO DAILY [facility] Last Admin: 07/02/17 08:25 Dose: 2.5 mg Magnesium Oxide (Magox 400 Tab*) 400 mg PO DAILY [facility] Last Admin: 07/02/17 08:27 Dose: 400 mg Metoprolol Tartrate (Lopressor Tab*) 25 mg PO Q8H [facility] Last Admin: 07/02/17 08:29 Dose: 25 mg Pharmacy Profile Note (Coumadin Daily Reminder*) 0 note FOLLOW UP 1700 [facility] Warfarin Sodium (Coumadin Tab(*)) 5 mg PO ONCE@1700 ONE PRN Reason: Protocol Stop: 07/02/17 17:01 Vital Signs 07/01/17 07/01/17 07/02/17 19:38 20:00 00:15 Temperature 98.3 F 98.1 F Pulse Rate 52 60 Respiratory 18 16 16 Rate Blood Pressure 128/72 143/85 (mmHg) O2 Sat by Pulse 97 97 Oximetry 07/02/17 07/02/17 07/02/17 03:11 07:19 07:22 Temperature 97.9 F Pulse Rate 54 Respiratory 16 18 18 Rate Blood Pressure 147/86 (mmHg) O2 Sat by Pulse 98 Oximetry 07/02/17 07/02/17 07/02/17 07:23 08:28 11:33 Temperature 98.2 F 98.2 F Pulse Rate 51 58 50 Respiratory 20 20 Rate Blood Pressure 138/81 136/86 (mmHg) O2 Sat by Pulse 96 98 Oximetry 07/02/17 07/02/17 07/02/17 12:18 14:13 14:18 Temperature 97.5 F Pulse Rate Respiratory 18 20 20 Rate Blood Pressure 135/87 (mmHg) O2 Sat by Pulse 95 Oximetry 07/02/17 07/02/17 07/02/17 14:28 14:43 14:58 Temperature 97.5 F 97.6 F 97.9 F Pulse Rate 45 48 Respiratory 14 Rate Blood Pressure 138/79 141/74 129/70 (mmHg) O2 Sat by Pulse 95 96 96 Oximetry 07/02/17 07/02/17 15:00 15:28 Temperature Pulse Rate 56 Respiratory Rate Blood Pressure 126/85 (mmHg) O2 Sat by Pulse 94 Oximetry Oxygen Devices in Use Now: None Appearance: older than stated age, NAD Eyes: No Scleral Icterus, PERRLA Ears/Nose/Mouth/Throat: Mucous Membranes Moist, - - poor dentition Respiratory: Symmetrical Chest Expansion and Respiratory Effort, Clear to Auscultation Cardiovascular: RRR Abdominal: NL Sounds; No Tenderness; No Distention, No Hepatosplenomegaly Lymphatic: No Cervical Adenopathy Extremities: No Edema, - - right thigh with sandbag, right ingunial hernia Neurological: Alert and Oriented x 3 Result Diagrams: 07/02/17 06:49 07/02/17 06:49 Assess/Plan/Problems-Billing Assessment: Patient is a 72 year old gentleman with a known history of atrial fibrillation who presented with a chest pain found with wide complex tachycardia s/p cardioversion in ED and [facility] 07/02 - Patient Problems (1) Wide-complex tachycardia Comment: Ventricular tachycardia vs afib with aberrency [facility] with clean coronaries Has been recommended for EP study in [place] (2) Atrial fibrillation Comment: As per cardiology apparently he has had chest pain with RVR in the past symptoms before when he is in rapid atrial fibrillation. His symptoms resolved when he went into NSR Start coumadin toprol, amiodarone (3) Chest pain Comment: [facility] without obstructive disease (4) Hypertension Comment: BP with adequate control. No change in regimen. lisinopril, toprol (5) DVT prophylaxis Comment: On coumadin
[2017-07-02] MEDS ORDERED: Warfarin TAB(*) 5 MG PO ONE (17:00)
[2017-07-02] MEDS: Atorvastatin* 40 MG TAB PO SCH (18:00)
--- NOTE | 2017-07-03 02:11 | CATH ---
CC: Dr. Shultz* CARDIAC CATHETERIZATION REPORT: DATE OF PROCEDURE: 07/02/17 - ROOM #440 PROCEDURE: Cardiac catheterization including coronary angiography. INDICATION: Ventricular tachycardia, cardiomyopathy. The patient is a 72-year-old gentleman with a history of atrial arrhythmias, both atrial fibrillation and atrial flutter. The patient is on chronic anticoagulation and antiarrhythmic therapy. The patient came to the hospital because of dizziness, he was found to be in a wide complex tachycardia and was shocked back to normal sinus rhythm. The wide complex rhythm could be supraventricular tachycardia with aberrancy, but ventricular tachycardia could not be ruled out. DESCRIPTION OF PROCEDURE: The patient was brought to the procedure room in a fasting state. Informed consent had been obtained prior to the procedure. All labs had been reviewed. His INR today was 1.24. The patient was placed supine on the catheterization table. Both femoral areas were cleaned and draped in the usual fashion. 1% lidocaine was used for local anesthesia. The right femoral artery was entered by a modified Seldinger technique and a 6-Salvadorean sheath introducer was placed. The patient underwent coronary angiography using a 6-Salvadorean JL6 catheter, a 6-Salvadorean AR1 catheter. At the end of the procedure, all sheaths and catheters were removed. The patient tolerated the procedure well. There were no complications. A total of 105 cc of Omnipaque dye was used. A total of 10.9 minutes of fluoro time was used. FINDINGS: 1. Left main artery: The left main was normal in size. It bifurcated into the LAD and circumflex. There was no evidence of stenosis. 2. Left anterior descending artery: The LAD was normal in size. It gave off 2 diagonal vessels. There was no evidence of stenosis. 3. Left circumflex artery: The circumflex artery was normal in size. It gave off one large branching obtuse marginal. The left circumflex itself had no coronary artery disease. The OM1 vessel had an eccentric 20% stenosis. 4. Right coronary artery: The right coronary artery was a large dominant vessel. It gave off the PDA. There was no evidence of stenosis. IMPRESSION: Normal coronary arteries. RECOMMENDATIONS: The patient will continue on antiarrhythmic therapy and anticoagulation for his atrial arrhythmias. I do not think the patient needs a electrophysiology study at this point. [id number]/[facility] #: [id number] [facility]
[2017-07-03] MEDS: Aspirin Low Dose CHEW TAB* 81 MG PO SCH (09:40)
[2017-07-03] MEDS: Magnesium Oxide TAB* 400 MG PO SCH (09:41)
[2017-07-03] MEDS: Amiodarone TAB* 200 MG PO SCH (09:41)
[2017-07-03] MEDS: Lisinopril TAB* 5 MG PO SCH (09:41)
[2017-07-03] MEDS: Metoprolol Tartrate TAB* 25 MG PO SCH (11:14)
[2017-07-03 11:40] VITALS: BP 145/82
--- NOTE | 2017-07-04 07:12 | DS ---
CC: Dr. Argueta; Dr. Garcia * DISCHARGE SUMMARY: DATE OF ADMISSION: 06/30/17 DATE OF DISCHARGE: 07/03/17 PRIMARY CARE PROVIDER: Dr. Argueta. RECREATIONAL SPORTS DIRECTOR: Dr. Garcia. PRIMARY DIAGNOSIS: Wide complex tachycardia requiring DC cardioversion in the emergency room. SECONDARY DIAGNOSES: Include: 1. Elevated troponins, status post coronary catheterization with normal coronary arteries. 2. Atrial fibrillation. 3. Asthma. 4. Hypertension. 5. Hypomagnesemia. MEDICATIONS ON DISCHARGE: Include: 1. Lisinopril 2.5 mg daily. 2. Amiodarone 200 mg daily. 3. Coumadin 3 mg daily. 4. Metoprolol tartrate 25 mg, please note decreased dose secondary to bradycardia 48 hours prior to discharge, inhibiting administration of higher doses. 5. Magnesium oxide 400 mg daily. 6. Lipitor 40 mg in the evening. 7. Aspirin 81 mg daily. 8. Atorvastatin 650 mg every 4 hours as needed for pain. PROCEDURES PERFORMED DURING HOSPITAL STAY: Left heart cath performed by Dr. Garcia on 07/02/17, impression, "Left main normal in size without evidence of stenosis. LAD normal in size, gave off 2 diagonal branches. No evidence of stenosis. Left circumflex artery normal in size with OM1 vessel eccentric 20% stenosis. RCA large and dominant vessel gave off to PDA. No evidence of stenosis. HISTORY OF PRESENT ILLNESS AND HOSPITAL COURSE: This is a 72-year-old man with past medical history as outlined in the history of present illness, on the day of admission presented to the hospital with chest pain, found with a wide complex tachycardia. In the emergency room, he was noted to have declining blood pressures in the 80's, there was a concern that it was unstable tachycardia, received 100 joule cardioversion at sinus rhythm. After presentation, his troponin was noted to peak at 0.34, prompting evaluation with left heart cath with clean coronary arteries. At this time it is unclear whether the patient had atrial fibrillation with aberrancy versus intraventricular tachycardia. While Dr. Garcia's note after cardiac catheterization indicates that he does not think the patient needs EP study, in conversation with the patient, Dr. Garcia has advised the patient an EP study in the future, although the patient has had inability to get transported for evaluation. It was discussed at length and he has a friend now, who I discussed the results with, who is willing to transport for further evaluation if needed after discussion with Dr. Garcia. Of note, complications during this hospital stay include the patient trying to sit up very early status post catheterization while the catheter was still in place, caused fair amount of bleeding, which required 45 minutes of direct pressure. There was no further evidence of bleeding status post procedure. His right femoral artery was inspected prior to discharge without hematoma or bruit. There are no other complications in the patient's hospital stay. AT FOLLOWUP PLEASE: 1. Evaluate and please refer to EP study if deemed necessary. 2. At followup should be increase metoprolol dose if blood pressure or heart rate will tolerate, decreased secondary to bradycardia during hospital stay. 3. No other specific labs or vitals that need follow up. Reasons to return to the hospital including, but not limited to recurrent or worsening symptoms, chest pain, shortness of breath, nausea, vomiting, lightheadedness, loss of consciousness, near loss of consciousness, bleeding from any source, or inability to obtain or tolerate medications were discussed with the patient. He acknowledged understanding. TIME SPENT: Greater than 45 minutes was spent on discharge of this patient of which greater than half was spent [id number] with the patient. [id number]/[facility] #: [id number] KEI
== END 2017-07-03 15:16 | disposition home or self-care (01) | DRG 287 ==
LOC: ED 08:45 → UNDOADMOB 11:32 → ICU 11:32 → MEDTELE 15:21 → OBSVTOIN 07-01 13:33
PROVIDERS: ADMIT Internal Medicine; ATTEND Internal Medicine
PROC: B2111ZZ Fluoroscopy of Multiple Coronary Arteries using Low Osmolar Contrast (ICD-10-PCS; 2017-07-02)
PROC: 4A023N7 Measurement of Cardiac Sampling and Pressure, Left Heart, Percutaneous Approach (ICD-10-PCS; principal; 2017-07-02 13:30)
DX: I47.2 Ventricular tachycardia (principal); E83.42 Hypomagnesemia; I10 Essential (primary) hypertension; M19.90 Unspecified osteoarthritis, unspecified site; I48.91 Unspecified atrial fibrillation; J45.909 Unspecified asthma, uncomplicated; Z96.651 Presence of right artificial knee joint; Z87.891 Personal history of nicotine dependence; Z79.01 Long term (current) use of anticoagulants
CPT/HCPCS: 36415; 71010; 80048; 80053; 83605; 83735; 83880; 84443; 84484; 85025; 85379; 85610; 85730; 87641; 93005; 93306; 93454; 94762; 99156; 99157; A9270-GY; C1887; C8929; J0456; J0696; J1644; J1650; J2001; J2250; J3010; J3475

== ENCOUNTER → 2018-02-04 07:54 | Day surgery (SDC) | payer MEDICARE ==
--- NOTE | 2018-01-27 11:43 | HP ---
HISTORY AND PHYSICAL: DATE OF ADMISSION/SURGERY: 02/04/18 [facility] ATTENDING PHYSICIAN: Magali Ogden MD * (DICTATED BY TOY FISCHER) AFRICAN STUDIES PROFESSOR: Dr. Garcia. PROCEDURE: Right wrist carpal tunnel release. CHIEF COMPLAINT: Right hand numbness and tingling. HISTORY OF PRESENT ILLNESS: Stalin is a 72-year-old male who complains of numbness and tingling in his right hand for several months. He has had nerve conduction studies performed years ago that revealed carpal tunnel syndrome. Recently, his symptoms have been much worse, especially at night time. He is waking up in the middle of the night frequently with numbness in his hand and has to shake his hand out to relieve the symptoms. It limits his activity to some degree. He denies injury. He has elected to proceed with surgical intervention and he is scheduled to undergo right wrist carpal tunnel release on 02/04/18, with Dr. Ogden. He is treated by Dr. Garcia for atrial fibrillation and is on Coumadin. We will plan on him staying on his Coumadin perioperatively. He has been cardioverted several times because of being symptomatic from atrial fibrillation, specifically during being short of breath. The most recent cardio-version was in December and January 2017. He has followed regularly with Dr. Garcia. PAST MEDICAL HISTORY: 1. Atrial fibrillation. 2. Hypertension. PAST SURGICAL HISTORY: 1. Left knee surgery. 2. Cholecystectomy. 3. Tonsillectomy. CURRENT MEDICATIONS: 1. Amiodarone. 2. Lisinopril 2.5 mg daily. 3. Metoprolol tartrate 50 mg daily. 4. Warfarin sodium 5 mg, alternate with 6 mg as directed by PCP. 5. Magnesium and atorvastatin. ALLERGIES: No known drug allergies. FAMILY MEDICAL HISTORY: Noncontributory. SOCIAL HISTORY: The patient is retired. He is a former smoker, he quit in 1978. He denies recreational drug use. He does admit to alcohol use on occasion. REVIEW OF SYSTEMS: General: Negative for fevers, chills, or night sweats. No known anesthesia problems. HEENT: Negative for headaches, lightheadedness, or syncopal episodes. Integumentary: Negative for abrasions, lesions, or open wounds. Cardiothoracic: Positive for history of hypertension and atrial fibrillation. Negative for chest pain, palpitations, or edema. Pulmonary: Negative for shortness of breath with exertion, chronic cough, COPD. GI: Negative or nausea, vomiting, diarrhea, constipation, or GERD. : Negative for nocturia, urinary frequency, urgency, history of UTIs, or kidney problems. Musculoskeletal: Positive for current complaints. Negative for chronic or intermittent back pain. Neurological: Negative for history of seizures, stroke , or epilepsy. Negative for anxiety or depression. Endocrine: Negative for diabetes or thyroid issues. Hematologic: Positive for easy bruising and bleeding secondary to being on warfarin. Negative for history of DVT. Infectious Disease: Negative for history of MRSA, hepatitis C or HIV. PHYSICAL EXAMINATION GENERAL: Well-developed, well nourished 72-year-old male, in no acute distress. He is awake, alert, and oriented x3. Appropriate mood and affect. HEENT: Normocephalic, atraumatic. Pupils are equal and round and reactive to light and accommodation. NECK: Supple with no palpable lymph nodes. Throat is clear. PULMONARY: Lungs are clear to auscultation bilaterally. No wheezes, rales, or rhonchi. CARDIOVASCULAR: Regular rate and rhythm. S1, S2. No murmurs, rubs, or gallops. No edema. ABDOMEN: Soft, nontender. Positive bowel sounds throughout. NEUROLOGIC: Alert and oriented x3. Cranial nerves II through XII are grossly intact. Sensation is intact to light touch distally. MUSCULOSKELETAL: Right upper extremity: He has decreased sensation to light touch in the median nerve distribution, specifically in the middle finger. He has normal sensation in the ulnar nerve distribution. Positive median nerve compression test, negative Phalen's test. There is mild weakness with thumb abduction and some mild thenar atrophy noted. IMPRESSION: Right wrist carpal tunnel syndrome. PLAN/RECOMMENDATIONS: The patient is scheduled to undergo right wrist carpal tunnel release with Dr. Ogden on 02/04/18. He will return to the office 10 to 14 days postoperatively for followup and suture removal. A prescription for tramadol was e-prescribed to the patient's pharmacy for postoperative pain management. TOY FISCHER [id number]/[facility] #: [id number] [facility]
[~2018-02-04 07:54] MED LIST: Buffered Lidocaine 0.9% SYRIN* 5 ML/SYR SYRINGE INTRADERM ONE; Lidocaine 1% INJ* 10 MG/ML 30 ML SDV ONE; Midazolam* 1 MG/ML 2 ML VIAL (2 MG) ONE; Naloxone* 0.4 MG/ML 1 ML VIAL IV PRN; Propofol* 10 MG/ML 20 ML BTL IV PUSH ONE; fentaNYL* 50 MCG/ML 2 ML VIAL (100 MCG VIAL) ONE
[2018-02-04 11:33] VITALS: BP 130/88
--- NOTE | 2018-02-05 03:41 | OP ---
DATE OF OPERATION: 02/04/18 - [facility] DATE OF : 45 SURGEON: Magali Ogden MD MULTI CRAFT MAINTENANCE TECHNICIAN: TOY Quiroga ANESTHESIA: Local MAC. PRE-OP DIAGNOSIS: Right carpal tunnel syndrome. POST-OP DIAGNOSIS: Right carpal tunnel syndrome. OPERATIVE PROCEDURE: Right carpal tunnel release. ESTIMATED BLOOD LOSS: Zero. TOURNIQUET TIME: Five minutes. INDICATIONS FOR PROCEDURE: Stalin is a 72-year-old man with numbness and tingling in the median nerve distribution of his right hand. He presents for carpal tunnel release. DESCRIPTION OF PROCEDURE: The patient was brought to the operating room, was given a sedation anesthetic and local infiltration of 10 cc of 1% plain lidocaine in the palm of his right hand. Skin of his right hand and forearm was prepped and draped in the usual sterile fashion. The hand and forearm were exsanguinated and he tourniquet elevated to 250 mmHg. A longitudinal incision was made in the palm in line with the ring finger. We dissected sharply through the subcutaneous tissue down to the transverse carpal ligament. The ligament was divided sharply with a knife and then more proximally with the scissors. The nerve was dissected free from surrounding tissue and there was an area of moderate compression at the mid portion of the ligament. The wound was irrigated and skin edges reapproximated with 4-0 nylon suture. The wound was dressed with Xeroform, 4x4, Webril and an Kenneth wrap. The patient tolerated the procedure well and was brought to the recovery room in good condition. [id number]/[facility] #: [id number] MTDD
== END | disposition home or self-care (01) ==
LOC: OR 07:54
PROVIDERS: ATTEND Orthopaedic Surgery
DX: G56.01 Carpal tunnel syndrome, right upper limb (principal); I48.91 Unspecified atrial fibrillation; Z79.01 Long term (current) use of anticoagulants; I10 Essential (primary) hypertension; Z87.891 Personal history of nicotine dependence
CPT/HCPCS: J2250; J2704; J3010

== ENCOUNTER 2018-03-07 11:59 | Emergency (ER) | payer MEDICAID, MEDICARE ==
[2018-03-07] MEDS ORDERED: Tetan/Diph/Pertus SYR(Tdap)* 0.5 ML SYR(BOOSTRIX) use SYR IM ONE (12:25)
--- OUTSIDE RECORDS SUMMARY | 2018-03-07 12:43 | XMS REPORT ---
:1945 External Reference #:[id number] Author Organization [facility] Address [address] [address] Phone [phone] Care Team Providers Name Role Phone Luis M Argueta MD Primary Care Physician Unavailable Payers Type Date Identification Numbers Payment Provider Subscriber Medicare Primary Effective: Policy Number: Medicare Stalin Villeda 2009 [id number] PayID: [id number] [address] [place] [address] Medigap Part B Expires: 2018 Policy Number: [id number] Medicaid Stalin Villeda Group Name: 1 1 [address] PayID: [id number] [place] [address] Medigap Part B Expires: 2018 Policy Number: [id number] Medicaid Stalin Villeda Group Name: 1 1 [address] PayID: [id number] [place] [address] Problems Date Description Provider Status Onset: 09/02/2013 Atrial fibrillation Mariano Garcia M.D. Active Onset: 01/06/2014 Chest pain Mariano Garcia M.D. Active Family History Date Family Member(s) Problem(s) Comments General Hypertension General Stroke Social History Type Date Description Comments Marital Status Single Lives With Alone Occupation Retired Cigarette Use Former Cigarette Smoker ETOH Use Denies alcohol use Smoking Patient is a former smoker Recreational Drug Use Denies Drug Use Daily Caffeine Consumes on average 2 cups of regular coffee per day Exercise Type/Frequency Exercises regularly walks for 1 hour a day Allergies, Adverse Reactions, Alerts Date Description Reaction Status Severity Comments 09/02/2013 NKDA active Medications Medication Date Status Form Strength Qnty SIG Indications Ordering Provider Ultracet 02/05/ Active Tablets 37.5-325mg 15tabs 1 tab by Magali 2017 mouth [place], every 4-6 M.D. hours as needed pain Magnesium 10/29/ Active Capsules 400mg 30caps 1 by mouth Vickie Oxide -MG 2016 every day [place], Supplement M.DLily Aspirin 10/29/ Active Tablets DR 81mg 90tabs 1 by mouth Other 2016 every day Ordering Provider Atorvastatin 10/29/ Active Tablets 40mg 90tabs 1 by mouth Mariano DLily Calcium 2017 every day Brand, M.D. Amiodarone HCL / Active Tablets 200mg 90tabs 1 by mouth Mariano D. 0000 every day Brand, M.D. Warfarin / Active 5mg alternate Mariano D. Sodium 0000 with 3 mg Brand, tablet as M.D. directed by PCP Lisinopril / Active Tablets 2.5mg 90tabs 1 by mouth Mariano D. 0000 every day Brand, M.D. Warfarin / Active Tablets 3mg 90tabs 1 tab Mariano D. Sodium 0000 every Brand, night or M.D. as directed Metoprolol / Active Tablets ER 25mg 1 by mouth Unknown Succinate ER 0000 24HR every day Ultracet 04/25/ Hx Tablets 37.5-325mg 20tabs 1 tabs by Magali 2016 - mouth [place], 05/10/ every 4-6 M.D. 2017 hours as needed pain Metoprolol 00/00/ Hx Tablets ER 50mg 1 po qd Niziol, Succinate ER 0000 - 24HR Luis M 2013 Terbinafine / Hx Tablets 250mg 90tabs 1 po qd Unknown HCL 0000 - 2016 Meloxicam / Hx Tablets 15mg 30tabs 1 po qd Unknown 0000 - 2013 Fenofibric / Hx Capsules 135mg 90caps once a day Unknown Acid 0000 - 2013 Atorvastatin /00/ Hx Tablets 20mg 30tabs take 1 Unknown Calcium 0000 - tablet at 11/13/ bedtime 2014 Metoprolol 00/00/ Hx Tablets ER 50mg 1 po qd Niziol, Succinate ER 0000 - 24HR Luis M 2015 Metoprolol 00/00/ Hx Tablets 50mg 30tabs 1 by mouth Vickie Tartrate 0000 - by mouth a Rose Mary, M.D. 2018 Vital Signs Date Vital Result Comment 03/06/2018 Height 71 inches 5'11" Weight 222.00 lb Heart Rate 76 /min BP Systolic 108 mmHg BP Diastolic 78 mmHg Respiratory Rate 18 /min Body Temperature 98.6 F Pain Level 986 BMI (Body Mass Index) 31.0 kg/m2 02/13/2018 Heart Rate 76 /min BP Systolic 118 mmHg BP Diastolic 88 mmHg Respiratory Rate 16 /min Body Temperature 97.5 F Pain Level 0 01/24/2018 Height 71 inches 5'11" Weight 222.00 lb Heart Rate 62 /min BP Systolic Sitting 120 mmHg lue reg cuff BP Diastolic Sitting 60 mmHg lue reg cuff BP Systolic Standing 122 mmHg lue reg cuff BP Diastolic Standing 62 mmHg lue reg cuff Respiratory Rate 16 /min BMI (Body Mass Index) 31.0 kg/m2 Ejection Fraction 45-50% 07/01/2017 01/16/2018 Height 71 inches 5'11" Heart Rate 78 /min BP Systolic 130 mmHg BP Diastolic 80 mmHg Respiratory Rate 17 /min Body Temperature 98.0 F Pain Level 2 12/26/2017 Height 71 inches 5'11" Heart Rate 77 /min BP Systolic 116 mmHg BP Diastolic 82 mmHg Respiratory Rate 17 /min Body Temperature 96.7 F Pain Level 0 07/16/2017 Height 71 inches 5'11" Weight 215.00 lb Heart Rate 60 /min BP Systolic Sitting 150 mmHg rue reg cuff BP Diastolic Sitting 90 mmHg rue reg cuff BP Systolic Standing 155 mmHg rue reg cuff BP Diastolic Standing 94 mmHg rue reg cuff BMI (Body Mass Index) 30.0 kg/m2 Ejection Fraction 45-50% echo 07/01/17 06/17/2017 Height 71 inches 5'11" Weight 214.00 lb Heart Rate 82 /min BP Systolic 128 mmHg BP Diastolic 80 mmHg Respiratory Rate 18 /min Body Temperature 97.3 F Pain Level 0 BMI (Body Mass Index) 29.8 kg/m2 05/20/2017 Height 71 inches 5'11" Weight 214.00 lb BP Systolic 125 mmHg BP Diastolic 95 mmHg Body Temperature 97.9 F Pain Level 0 BMI (Body Mass Index) 29.8 kg/m2 05/01/2017 Height 71 inches 5'11" Weight 214.00 lb with shoes Heart Rate 60 /min BP Systolic Sitting 122 mmHg Lue reg cuff BP Diastolic Sitting 88 mmHg Lue reg cuff BP Systolic Standing 120 mmHg Lue reg cuff BP Diastolic Standing 90 mmHg Lue reg cuff Respiratory Rate 16 /min BMI (Body Mass Index) 29.8 kg/m2 Ejection Fraction 45-50% 07/21/2015-echo 04/25/2017 Height 71 inches 5'11" Weight 215.00 lb Heart Rate 52 /min BP Systolic 118 mmHg BP Diastolic 90 mmHg Respiratory Rate 16 /min Body Temperature 98.5 F Pain Level 0 BMI (Body Mass Index) 30.0 kg/m2 04/08/2017 Height 71 inches 5'11" Weight 215.00 lb Heart Rate 56 /min BP Systolic 130 mmHg BP Diastolic 81 mmHg Respiratory Rate 15 /min Body Temperature 97.0 F Pain Level 10 BMI (Body Mass Index) 30.0 kg/m2 01/02/2017 Height 71 inches 5'11" Weight 214.00 lb Heart Rate 52 /min BP Systolic Sitting 136 mmHg right arm, reg cuff BP Diastolic Sitting 88 mmHg right arm, reg cuff BP Systolic Standing 134 mmHg right arm, reg cuff BP Diastolic Standing 90 mmHg right arm, reg cuff BMI (Body Mass Index) 29.8 kg/m2 Ejection Fraction 45-50% 07/21/15 11/28/2016 Height 71 inches 5'11" Weight 217.00 lb w/o shoes Heart Rate 72 /min irreg BP Systolic Sitting 140 mmHg Rue, reg cuff BP Diastolic Sitting 90 mmHg Rue, reg cuff BP Systolic Standing 146 mmHg Rue BP Diastolic Standing 94 mmHg Rue Respiratory Rate 22 /min O2 % BldC Oximetry 96 % on Ra BMI (Body Mass Index) 30.3 kg/m2 Ejection Fraction 45-50% as of 07/21/15 echo 02/10/2016 Height 71 inches 5'11" Weight 213.00 lb without shoes Heart Rate 60 /min BP Systolic Sitting 154 mmHg LA reg cuff BP Diastolic Sitting 98 mmHg LA reg cuff BP Systolic Standing 158 mmHg LA reg cuff BP Diastolic Standing 100 mmHg LA reg cuff Respiratory Rate 16 /min BMI (Body Mass Index) 29.7 kg/m2 Ejection Fraction 45-50% date 07/21/15 ECHO 02/11/2015 Height 71 inches 5'11" Weight 219.00 lb w/o shoes Heart Rate 62 /min BP Systolic Sitting 160 mmHg Ra, reg cuff BP Diastolic Sitting 100 mmHg Ra, reg cuff BP Systolic Standing 150 mmHg Ra BP Diastolic Standing 90 mmHg Ra BP Systolic Recheck 140 mmHg BP Diastolic Recheck 88 mmHg Respiratory Rate 16 /min BMI (Body Mass Index) 30.5 kg/m2 07/30/2014 Height 71 inches 5'11" Weight 202.00 lb without shoes Heart Rate 52 /min BP Systolic Sitting 124 mmHg LA reg cuff BP Diastolic Sitting 86 mmHg LA reg cuff BP Systolic Standing 120 mmHg La reg cuff BP Diastolic Standing 90 mmHg La reg cuff Respiratory Rate 15 /min BMI (Body Mass Index) 28.2 kg/m2 01/06/2014 Height 69 inches 5'9" Weight 217.00 lb Heart Rate 60 /min BP Systolic Sitting 172 mmHg Ra reg cuff BP Diastolic Sitting 112 mmHg Ra reg cuff BP Systolic Standing 164 mmHg Ra BP Diastolic Standing 110 mmHg Ra Respiratory Rate 18 /min BMI (Body Mass Index) 32.0 kg/m2 09/25/2013 Height 71 inches 5'11" Weight 210.00 lb up 6 lbs Heart Rate 44 /min BP Systolic Sitting 152 mmHg Ra reg cuff BP Diastolic Sitting 108 mmHg Ra reg cuff BP Systolic Standing 150 mmHg Ra BP Diastolic Standing 100 mmHg Ra Respiratory Rate 16 /min BMI (Body Mass Index) 29.3 kg/m2 09/02/2013 Height 71 inches 5'11" Weight 204.00 lb Heart Rate 64 /min BP Systolic Sitting 130 mmHg Ra reg cuff BP Diastolic Sitting 94 mmHg Ra reg cuff BP Systolic Standing 126 mmHg Ra BP Diastolic Standing 92 mmHg Ra Respiratory Rate 20 /min BMI (Body Mass Index) 28.4 kg/m2 Results Test Date Test Result H/L Range Note Inr/Protime 12/24/2017 Inr 1.92 High 0.77-1.02 Inr/Protime 12/17/2017 Inr 2.31 High 0.77-1.02 Inr/Protime 12/10/2017 Inr 1.70 High 0.77-1.02 Inr/Protime 09/10/2017 Inr 2.87 High 0.89-1.11 Inr/Protime 09/04/2017 Inr 2.85 High 0.89-1.11 Inr/Protime 06/27/2017 Inr 1.40 High 0.89-1.11 Inr/Protime 12/03/2016 Inr 1.87 High 0.89-1.11 CBC No Diff 12/03/2016 White Blood Count 8.4 10^3/uL 3.5-10.8 Red Blood Count 5.81 10^6/uL High 4.0-5.4 Hemoglobin 17.0 g/dL 14.0-18.0 Hematocrit 49 % 42-52 Mean Corpuscular Volume 85 fL 80-94 Mean Corpuscular Hemoglobin 29 pg 27-31 Mean Corpuscular HGB Conc 35 g/dL 31-36 Red Cell Distribution Width 14 % 10.5-15 Platelet Count 237 10^3/uL 150-450 Mean Platelet Volume 8 um3 7.4-10.4 Basic Metabolic Panel 12/03/2016 Sodium 137 mmol/L 133-145 Potassium 4.7 mmol/L 3.5-5.0 Chloride 105 mmol/L 101-111 Co2 Carbon Dioxide 26 mmol/L 22-32 Anion Gap 6 mmol/L 2-11 Glucose 102 mg/dL High 70-100 Blood Urea Nitrogen 20 mg/dL 6-24 Creatinine 1.21 mg/dL High 0.67-1.17 BUN/Creatinine Ratio 16.5 8-20 Calcium 9.9 mg/dL 8.6-10.3 Egfr Non- 59.1 >60 Egfr 76.0 >60 1 Laboratory test finding 12/03/2016 TSH (Thyroid Stim 7.90 mcIU/mL High 0.34-5.60 Horm) CBC Auto Diff 09/07/2015 White Blood Count 6.6 10^3/uL 4.8-10.8 Red Blood Count 5.31 10^6/uL 4.0-5.4 Hemoglobin 15.8 g/dL 14.0-18.0 Hematocrit 46 % 42-52 Mean Corpuscular Volume 86 fL 80-94 Mean Corpuscular Hemoglobin 30 pg 27-31 Mean Corpuscular HGB Conc 34 g/dL 31-36 Red Cell Distribution Width 13 % 10.5-15 Platelet Count 219 10^3/uL 150-450 Mean Platelet Volume 8 um3 7.4-10.4 Abs Neutrophils 4.7 10^3/uL 1.5-7.7 Abs Lymphocytes 1.1 10^3/uL 1.0-4.8 Abs Monocytes 0.6 10^3/uL 0-0.8 Abs Eosinophils 0.1 10^3/uL 0-0.6 Abs Basophils 0.1 10^3/uL 0-0.2 Abs Nucleated RBC 0.01 10^3/uL Granulocyte % 71.6 % 38-83 Lymphocyte % 16.5 % Low 25-47 Monocyte % 9.1 % High 1-9 Eosinophil % 1.7 % 0-6 Basophil % 1.1 % 0-2 Nucleated Red Blood Cells % 0.1 Comp Metabolic Panel 09/07/2015 Sodium 136 mmol/L 133-145 Chloride 106 mmol/L 101-111 Co2 Carbon Dioxide 25 mmol/L 22-32 Glucose 98 mg/dL 70-100 Blood Urea Nitrogen 15 mg/dL 6-24 Creatinine 0.88 mg/dL 0.67-1.17 BUN/Creatinine Ratio 17.0 8-20 Calcium 9.2 mg/dL 8.6-10.3 Total Protein 6.3 g/dL Low 6.4-8.9 Albumin 4.3 g/dL 3.2-5.2 Globulin 2.0 g/dL 2-4 Albumin/Globulin Ratio 2.2 1-3 Total Bilirubin 0.70 mg/dL 0.2-1.0 Alkaline Phosphatase 67 U/L 34-104 Alt 22 U/L 7-52 Egfr Non- 85.6 >60 Egfr 110.1 >60 2 Potassium 4.2 mmol/L 3.5-5.0 Anion Gap 5 mmol/L 2-11 Ast 18 U/L 13-39 Laboratory test finding 09/07/2015 Troponin-I (TnI) 0.00 ng/mL <0.03 3 Laboratory test finding 05/31/2015 Inr/Protime 2.33 High 0.78-1.07 Laboratory test finding 05/10/2015 Inr/Protime 3.80 High 0.78-1.07 Laboratory test finding 03/14/2015 Inr 3.27 High 0.78-1.07 Laboratory test finding 02/28/2015 TSH (Thyroid 7.68 IU/mL High 0.34-5.60 Stimulating Horm) Basic Metabolic Panel 02/28/2015 Sodium 139 mmol/L 133-145 Potassium 4.2 mmol/L 3.5-5.0 Chloride 107 mmol/L 101-111 Co2 Carbon Dioxide 26 mmol/L 22-32 Anion Gap 6 mmol/L 2-11 Glucose 90 mg/dL 70-100 Blood Urea Nitrogen 21 mg/dL 6-24 Creatinine 0.96 mg/dL 0.67-1.17 BUN/Creatinine Ratio 21.9 High 8-20 Calcium 9.3 mg/dL 8.6-10.3 Egfr Non- 77.7 >60 Egfr 99.9 >60 4 Laboratory test finding 02/28/2015 Inr 2.42 High 0.78-1.07 Laboratory test finding 02/21/2015 Inr 2.02 High 0.78-1.07 Laboratory test finding 02/07/2015 Inr 2.55 High 0.78-1.07 Laboratory test finding 01/27/2015 Inr 1.66 High 0.78-1.07 Laboratory test finding 12/31/2014 Inr 2.53 High 0.78-1.07 5 Laboratory test finding 12/28/2014 Inr 3.68 High 0.78-1.07 6 Laboratory test finding 12/23/2014 Inr 2.30 High 0.78-1.07 7 Laboratory test finding 12/14/2014 Inr 3.85 High 0.78-1.07 8 Laboratory test finding 11/29/2014 Inr 2.69 High 0.85-1.06 Laboratory test finding 11/15/2014 Inr 2.54 High 0.85-1.06 Laboratory test finding 11/01/2014 Inr 2.48 High 0.85-1.06 Laboratory test finding 10/18/2014 Inr 2.32 High 0.85-1.06 Laboratory test finding 10/12/2014 Inr 2.17 High 0.85-1.06 Laboratory test finding 10/04/2014 Inr 2.31 High 0.85-1.06 Laboratory test finding 09/20/2014 Inr 2.91 High 0.85-1.06 Laboratory test finding 09/13/2014 Inr 2.94 High 0.85-1.06 Laboratory test finding 08/30/2014 Inr 2.34 High 0.85-1.06 Laboratory test finding 08/23/2014 Inr 1.97 High 0.85-1.06 Laboratory test finding 08/11/2014 Inr 2.28 High 0.85-1.06 Laboratory test finding 08/04/2014 Inr 2.04 High 0.85-1.06 Basic Metabolic Panel 07/30/2014 Sodium 138 mmol/L 133-145 9 Potassium 4.5 mmol/L 3.7-5.6 9 Chloride 107 mmol/L 101-111 9 Co2 Carbon Dioxide 22 mmol/L 22-32 9 Anion Gap 9 mmol/L 2-11 9 Glucose 94 mg/dL 70-100 9 Blood Urea Nitrogen 15 mg/dL 6-24 9 Creatinine 1.08 mg/dL 0.67-1.17 9 BUN/Creatinine Ratio 13.9 8-20 9 Calcium 9.6 mg/dL 8.6-10.3 9 Egfr Non- 67.8 >60 9 Egfr 87.2 >60 9, 10 Laboratory test finding 07/30/2014 LDL Cholesterol Direct 149 mg/dL 9, 11 Free T4 1.31 ng/mL High 0.61-1.12 9, 12 TSH (Thyroid Stimulating Horm) 6.46 IU/mL High 0.34-5.60 9, 13 CBC Auto Diff 07/30/2014 White Blood Count 7.7 10^3/uL 4.8-10.8 9 Red Blood Count 5.29 10^6/uL 4.0-5.4 9 Hemoglobin 15.5 g/dL 14.0-18.0 9 Hematocrit 44 % 42-52 9 Mean Corpuscular Volume 83 fL 80-94 9 Mean Corpuscular Hemoglobin 29 pg 27-31 9 Mean Corpuscular HGB Conc 35 g/dL 31-36 9 Red Cell Distribution Width 14 % 10.5-15 9 Platelet Count 293 10^3/uL 150-450 9 Mean Platelet Volume 8 um3 7.4-10.4 9 Abs Neutrophils 5.9 10^3/uL 1.5-7.7 9 Abs Lymphocytes 1.1 10^3/uL 1.0-4.8 9 Abs Monocytes 0.5 10^3/uL 0-0.8 9 Abs Eosinophils 0.1 10^3/uL 0-0.6 9 Abs Basophils 0 10^3/uL 0-0.2 9 Abs Nucleated RBC 0.01 10^3/uL 9 Granulocyte % 76.9 % 38-83 9 Lymphocyte % 14.5 % Low 25-47 9 Monocyte % 7.1 % 1-9 9 Eosinophil % 1.0 % 0-6 9 Basophil % 0.5 % 0-2 9 Nucleated Red Blood Cells % 0.1 9 Laboratory test finding 07/27/2014 Inr 1.65 High 0.85-1.06 Laboratory test finding 07/19/2014 Inr 1.90 High 0.85-1.06 Laboratory test finding 07/12/2014 Inr 3.94 High 0.85-1.06 Laboratory test finding 07/07/2014 Inr 2.93 High 0.85-1.06 Laboratory test finding 06/21/2014 Inr 2.29 High 0.85-1.06 Laboratory test finding 06/08/2014 Inr 2.77 High 0.85-1.06 Laboratory test finding 05/31/2014 Inr 2.13 High 0.85-1.06 Laboratory test finding 05/10/2014 Inr 1.33 High 0.85-1.06 Laboratory test finding 05/04/2014 Inr 2.27 High 0.85-1.06 Laboratory test finding 04/26/2014 Inr 1.40 High 0.85-1.06 Laboratory test finding 04/19/2014 Inr 1.34 High 0.85-1.06 Laboratory test finding 04/12/2014 Inr 2.44 High 0.85-1.06 Laboratory test finding 04/07/2014 Inr 2.55 High 0.85-1.06 Laboratory test finding 04/05/2014 Inr 1.69 High 0.85-1.06 Laboratory test finding 04/03/2014 Inr 1.06 0.85-1.06 14 Laboratory test finding 04/01/2014 Inr 1.04 0.85-1.06 Liver Function Panel 04/01/2014 Total Protein 6.3 g/dL Low 6.4-8.9 Albumin 4.5 g/dL 3.2-5.2 Globulin 1.8 g/dL Low 2-4 Albumin/Globulin Ratio 2.5 1-3 Total Bilirubin 1.10 mg/dL High 0.2-1.0 Direct Bilirubin 0.20 mg/dL High 0.03-0.18 Indirect Bilirubin 0.9 mg/dL 0.3-1.0 Alkaline Phosphatase 55 U/L 34-104 Alt 65 U/L High 7-52 Ast 34 U/L 13-39 Laboratory test finding 01/26/2014 Inr 2.12 High 0.85-1.06 Laboratory test finding 01/13/2014 Inr 2.34 High 0.85-1.06 Laboratory test finding 01/06/2014 Inr 2.93 High 0.85-1.06 Laboratory test finding 12/29/2013 Inr 2.06 High 0.85-1.06 CBC Auto Diff 12/21/2013 White Blood Count 13.4 10^3/uL High 4.8-10.8 Red Blood Count 5.95 10^6/uL High 4.0-5.4 Hemoglobin 17.1 g/dL 14.0-18.0 Hematocrit 50 % 42-52 Mean Corpuscular Volume 85 fL 80-94 Mean Corpuscular Hemoglobin 29 pg 27-31 Mean Corpuscular HGB Conc 34 g/dL 31-36 Red Cell Distribution Width 13 % 10.5-15 Platelet Count 330 10^3/uL 150-450 Mean Platelet Volume 8 um3 7.4-10.4 Abs Neutrophils 11.3 10^3/uL High 1.5-7.7 Abs Lymphocytes 1.2 10^3/uL 1.0-4.8 Abs Monocytes 0.7 10^3/uL 0-0.8 Abs Eosinophils 0.1 10^3/uL 0-0.6 Abs Basophils 0 10^3/uL 0-0.2 Abs Nucleated RBC 0.02 10^3/uL Granulocyte % 84.7 % High 38-83 Lymphocyte % 9.2 % Low 25-47 Monocyte % 5.4 % 1-9 Eosinophil % 0.4 % 0-6 Basophil % 0.3 % 0-2 Nucleated Red Blood Cells % 0.1 Inr/Protime 12/21/2013 Inr 1.97 High 0.85-1.06 Laboratory test finding 12/21/2013 Activated Partial 38.0 seconds High 24.0-36.1 Thrombo Time Comp Metabolic Panel 12/21/2013 Sodium 140 mmol/L 133-145 Potassium 4.6 mmol/L 3.7-5.6 Chloride 107 mmol/L 101-111 Co2 Carbon Dioxide 23 mmol/L 22-32 Anion Gap 10 mmol/L 2-11 Glucose 116 mg/dL High 70-100 Blood Urea Nitrogen 27 mg/dL High 6-24 Creatinine 1.41 mg/dL High 0.67-1.17 BUN/Creatinine Ratio 19.1 8-20 Calcium 9.9 mg/dL 8.6-10.3 Total Protein 7.0 g/dL 6.4-8.9 Albumin 4.6 g/dL 3.2-5.2 Globulin 2.4 g/dL 2-4 Albumin/Globulin Ratio 1.9 1-3 Total Bilirubin 1.00 mg/dL 0.2-1.0 Alkaline Phosphatase 60 U/L 34-104 Alt 37 U/L 7-52 Ast 26 U/L 13-39 Egfr Non- 50.0 >60 Egfr 64.3 >60 15 Laboratory test finding 12/21/2013 LDL Cholesterol Direct 123 mg/dL 16 Creatine Kinase 70 U/L 10-223 CKMB 12/21/2013 CKMB ng/mL 2.9 ng/mL 0.6-6.3 Laboratory test finding 12/21/2013 Troponin I 0.01 ng/mL <0.03 17 Myoglobin 39.3 ng/mL 17.4-105.7 B Type Natriuretic Peptide 350 pg/mL 18 Type & Screen 12/21/2013 Patient Blood Type A Positive Antibody Screen NEGATIVE Laboratory test finding 12/16/2013 Inr 2.19 High 0.85-1.06 Laboratory test finding 11/23/2013 Inr 2.22 High 0.85-1.06 Laboratory test finding 11/11/2013 Inr 2.05 High 0.85-1.06 Laboratory test finding 11/03/2013 Inr 1.55 High 0.85-1.06 Laboratory test finding 10/26/2013 Inr 2.43 High 0.85-1.06 19 Laboratory test finding 10/13/2013 Inr 1.99 High 0.85-1.06 20 Laboratory test finding 10/06/2013 Inr 1.74 High 0.85-1.06 21 Laboratory test finding 09/22/2013 Inr 2.33 High 0.85-1.06 22 Laboratory test finding 09/16/2013 Inr 2.05 High 0.85-1.06 23 Inr/Protime 09/03/2013 Inr 5.46 High 0.87-0.97 Basic Metabolic Panel 09/03/2013 Sodium 140 mmol/L 133-145 Potassium 4.5 mmol/L 3.5-5.0 Chloride 108 mmol/L 101-111 Co2 Carbon Dioxide 26.0 mmol/L 22-32 Anion Gap 6.0 mmol/L 2-11 Glucose 103 mg/dL High 70-100 Blood Urea Nitrogen 16 mg/dL 6-24 Creatinine 1.10 mg/dL 0.50-1.40 BUN/Creatinine Ratio 14.5 8-20 Calcium 9.3 mg/dL 8.1-9.9 Egfr Non- 66.6 >60 Egfr 85.6 >60 24 CBC No Diff 09/03/2013 White Blood Count 5.4 10^3/uL 4.8-10.8 25 Red Blood Count 5.19 10^6/uL 4.0-5.4 Hemoglobin 15.8 g/dL 14.0-18.0 Hematocrit 45 % 42-52 Mean Corpuscular Volume 87 fL 80-94 Mean Corpuscular Hemoglobin 30 pg 27-31 Mean Corpuscular HGB Conc 35 g/dL 31-36 Red Cell Distribution Width 13 % 10.5-15 Platelet Count 219 10^3/uL 150-450 Mean Platelet Volume 8 um3 7.4-10.4 Laboratory test finding 07/21/2013 Inr 2.74 High 0.87-0.97 1 Because ethnic data is not always readily available, this report includes an eGFR for both -Americans and non- Americans. The National Kidney Disease Education Program (NKDEP) does not endorse the use of the MDRD equation for patients that are not between the ages of 18 and 70, are , have extremes of body size, muscle mass, or nutritional status, or are non- or non-. According to the National Kidney Foundation, irrespective of diagnosis, the stage of the disease is based on the level of kidney function: Stage Description GFR(mL/min/1.73 m(2)) 1 Kidney damage with normal or decreased GFR 90 2 Kidney damage with mild decrease in GFR 60-89 3 Moderate decrease in GFR 30-59 4 Severe decrease in GFR 15-29 5 Kidney failure <15 (or dialysis) 2 Because ethnic data is not always readily available, this report includes an eGFR for both -Americans and non- Americans. The National Kidney Disease Education Program (NKDEP) does not endorse the use of the MDRD equation for patients that are not between the ages of 18 and 70, are , have extremes of body size, muscle mass, or nutritional status, or are non- or non-. According to the National Kidney Foundation, irrespective of diagnosis, the stage of the disease is based on the level of kidney function: Stage Description GFR(mL/min/1.73 m(2)) 1 Kidney damage with normal or decreased GFR 90 2 Kidney damage with mild decrease in GFR 60-89 3 Moderate decrease in GFR 30-59 4 Severe decrease in GFR 15-29 5 Kidney failure <15 (or dialysis) 3 Reference Range and Interpretation: TnI (ng/mL) Interpretation Less Than 0.03 ng/mL Not supportive of diagnosis of CT 0.03 - 0.50 ng/mL Indeterminate: suggest serial studies if clinically indicated. Greater than 0.5 ng/mL Consistent with diagnosis of CT 4 Because ethnic data is not always readily available, this report includes an eGFR for both -Americans and non- Americans. The National Kidney Disease Education Program (NKDEP) does not endorse the use of the MDRD equation for patients that are not between the ages of 18 and 70, are , have extremes of body size, muscle mass, or nutritional status, or are non- or non-. According to the National Kidney Foundation, irrespective of diagnosis, the stage of the disease is based on the level of kidney function: Stage Description GFR(mL/min/1.73 m(2)) 1 Kidney damage with normal or decreased GFR 90 2 Kidney damage with mild decrease in GFR 60-89 3 Moderate decrease in GFR 30-59 4 Severe decrease in GFR 15-29 5 Kidney failure <15 (or dialysis) 5 Please note: Effective December 01, 2014, the reference value for this test has changed due to the validation and activation of a new reagent lot number. 6 Please note: Effective December 01, 2014, the reference value for this test has changed due to the validation and activation of a new reagent lot number. 7 Please note: Effective December 01, 2014, the reference value for this test has changed due to the validation and activation of a new reagent lot number. 8 Please note: Effective December 01, 2014, the reference value for this test has changed due to the validation and activation of a new reagent lot number. 9 soon 10 Because ethnic data is not always readily available, this report includes an eGFR for both -Americans and non- Americans. The National Kidney Disease Education Program (NKDEP) does not endorse the use of the MDRD equation for patients that are not between the ages of 18 and 70, are , have extremes of body size, muscle mass, or nutritional status, or are non- or non-. According to the National Kidney Foundation, irrespective of diagnosis, the stage of the disease is based on the level of kidney function: Stage Description GFR(mL/min/1.73 m(2)) 1 Kidney damage with normal or decreased GFR 90 2 Kidney damage with mild decrease in GFR 60-89 3 Moderate decrease in GFR 30-59 4 Severe decrease in GFR 15-29 5 Kidney failure <15 (or dialysis) 11 Desirable <100 Near Optimal 100-129 Borderline high 130-159 High 160-189 Very High >189 12 soon 13 soon 14 CALL LILI ARROYO [phone] PLEASE CALL PATIENTS CELL PHONE AT [phone] 15 Because ethnic data is not always readily available, this report includes an eGFR for both -Americans and non- Americans. The National Kidney Disease Education Program (NKDEP) does not endorse the use of the MDRD equation for patients that are not between the ages of 18 and 70, are , have extremes of body size, muscle mass, or nutritional status, or are non- or non-. According to the National Kidney Foundation, irrespective of diagnosis, the stage of the disease is based on the level of kidney function: Stage Description GFR(mL/min/1.73 m(2)) 1 Kidney damage with normal or decreased GFR 90 2 Kidney damage with mild decrease in GFR 60-89 3 Moderate decrease in GFR 30-59 4 Severe decrease in GFR 15-29 5 Kidney failure <15 (or dialysis) 16 Desirable <100 Near Optimal 100-129 Borderline high 130-159 High 160-189 Very High >189 17 Reference Range and Interpretation: TnI (ng/mL) Interpretation Less Than 0.03 ng/mL Not supportive of diagnosis of CT 0.03 - 0.50 ng/mL Indeterminate: suggest serial studies if clinically indicated. Greater than 0.5 ng/mL Consistent with diagnosis of CT 18 >100 to <200 pg/mL: likely compensated congestive heart failure (CHF) 200 to 400 pg/mL: likely moderate CHF >400 pg/mL: likely moderate to severe CHF [place] [facility] 19 Please note the change in the INR reference range effective 13. 20 Please note the change in the INR reference range effective 13. 21 Please note the change in the INR reference range effective 13. 22 Please note the change in the INR reference range effective 13. 23 Please note the change in the INR reference range effective 13. 24 Because ethnic data is not always readily available, this report includes an eGFR for both -Americans and non- Americans. The National Kidney Disease Education Program (NKDEP) does not endorse the use of the MDRD equation for patients that are not between the ages of 18 and 70, are , have extremes of body size, muscle mass, or nutritional status, or are non- or non-. According to the National Kidney Foundation, irrespective of diagnosis, the stage of the disease is based on the level of kidney function: Stage Description GFR(mL/min/1.73 m(2)) 1 Kidney damage with normal or decreased GFR 90 2 Kidney damage with mild decrease in GFR 60-89 3 Moderate decrease in GFR 30-59 4 Severe decrease in GFR 15-29 5 Kidney failure <15 (or dialysis) 25 Verbal to [id number] by [id number] at 1007 on 09/03/13. Results read back accurately. Procedures Date CPT Code Description Status 02/04/2018 86515 Carpal Tunnel Release Completed 02/04/2018 70268 Carpal Tunnel Release Completed 01/24/2018 52372 EKG Tracing & Interpretation Completed 07/02/2017 66625 Cath PLMT&NJX L Ventriculog Img S&I Completed 07/01/2017 09250 ECHO Transthorasic Realtime 2D W Doppler & Color Completed Flow [facility]osp 07/01/2017 09021 EKG, Interpretation Only Completed 05/10/2017 83061 Carpal Tunnel Release Completed 05/10/2017 85214 Carpal Tunnel Release Completed 01/02/2017 90334 EKG Tracing & Interpretation Completed 12/03/2016 05556 EKG, Interpretation Only Completed 12/03/2016 45425 Cardioversion Completed 11/28/2016 28157 EKG Tracing & Interpretation Completed 02/10/2016 86368 EKG Tracing & Interpretation Completed 07/21/2015 76732 ECHO Transthoracic, Real-Time 2D With Doppler And Color Completed Flow 02/11/2015 36303 EKG Tracing & Interpretation Completed 07/30/2014 05250 EKG Tracing & Interpretation Completed 01/06/2014 87787 EKG Tracing & Interpretation Completed 12/22/2013 78644 EKG, Interpretation Only Completed 12/22/2013 80741 Cardioversion Completed 12/21/2013 05168 Echocardiogram, Limited Study Completed 09/25/2013 22198 EKG Tracing & Interpretation Completed 09/03/2013 80458 EKG, Interpretation Only Completed 09/03/2013 22842 Cardioversion Completed 10/01/2012 41439 EKG Tracing & Interpretation Completed Encounters Type Date Location Provider CPT E/M Dx Office Visit 01/24/2018 [facility] Mariano Garcia, 62784 I48.0 10:45a Tristan Claros R94.31 I42.9 Office Visit 01/16/2018 1:30p [facility] Magali Ogden, 17016 G56.01 Of Petrona Claros Office Visit 12/26/2017 1:15p [facility] Henny Hathaway, 15630 G56.01 Of Petrona MARTÍNEZ-C Office Visit 07/16/2017 1:30p [facility] Mariano Garcia, 66109 I48.91 [facility] [employer] [facility] [place]acinth I10 R00.1 Office Visit 07/03/2017 10:15a [facility], Luis M Marte, 78708 I47.2 Hospitalists Hyacinth I48.91 I10 Office Visit 07/02/2017 10:15a [facility], Luis M Marte, 23257 I47.2 Hospitalists Hyacinth I48.91 I10 Office Visit 07/01/2017 10:14a [facility], Adelfo Adhikari M.D. 54105 I47.2 Hospitalists I48.91 I10 Office Visit 06/30/2017 10:13a [facility], Binh Alonso, 99977 I47.2 Hospitalists NLilyPLily I48.91 I10 Office Visit 06/30/2017 2:37p [facility] [address] I48.0 [facility] I42.9 I10 Z79.01 R00.0 Office Visit 05/01/2017 11:45a [facility] Of Mariano Garcia, 69236 I48.0 [employer] M.D. I10 Z01.810 G56.02 Office Visit 04/08/2017 8:00a [facility] Magali Ogden, 41374 G56.02 Of Petrona Claros Office Visit 01/02/2017 8:45a [facility] Of Mariano Garcia, 27895 I48.0 [employer] M.D. I10 Office Visit 11/28/2016 12:00p [facility] Of Mariano Garcia, 89858 I48.0 [employer] M.D. I10 Office Visit 02/10/2016 3:00p [facility] Of Mariano Garcia, 54594 I48.0 [employer] M.D. I10 Office Visit 02/11/2015 1:30p [facility] Of Mariano Garcia, 20765 427.31 [employer] M.D. 401.9 Office Visit 07/30/2014 11:45a [facility] Of Mariano Garcia, 64936 427.31 [employer] M.D. 401.9 Office Visit 01/06/2014 11:15a [facility] Of Mariano Garcia, 27517 427.31 [employer] M.D. 786.59 Office Visit 12/22/2013 4:39p [facility], Luis M Aldrich, 40725 786.59 Hospitalists N.P. 427.31 401.9 461.9 Office Visit 12/22/2013 1:19p [facility] Of Mariano Garcia, 89484 427.31 [employer] M.D. Office Visit 12/21/2013 4:38p [facility] Nataliia Carvajal, N.P. 16847 786.59 Hospitalists 427.31 401.9 461.9 Office Visit 09/25/2013 12:45p [facility] Of Mariano Tan Brand, 73018 427.31 [employer] M.D. Office Visit 09/02/2013 11:15a [facility] Of Mariano Tan Brand, 26424 427.31 [employer] M.D. Office Visit 10/01/2012 10:15a [facility] Britney Garcia, 13979 427.31 Tristan Claros 401.9 Plan of Care 03/06/2018 - Magali Ogden M.D.G56.01 Carpal tunnel syndrome, right upper limbFollow up:Follow up: As needed
--- OUTSIDE RECORDS SUMMARY | 2018-03-07 12:44 | XMS REPORT ---
:1945 External Reference #:[id number] Author Organization [employer] Address [address] [address] Phone [phone] Care Team Providers Name Role Phone Luis M Argueta MD Primary Care Physician Unavailable Payers Type Date Identification Numbers Payment Provider Subscriber Medicare Primary Effective: Policy Number: Medicare Stalin Villeda 2009 [id number] PayID: [id number] [address] [place] [address] Medigap Part B Expires: 2018 Policy Number: [id number] Medicaid Stalin Villeda Group Name: 1 1 [address] PayID: [id number] [place] [address] Medigap Part B Expires: 2018 Policy Number: [id number] Medicaid Stalin Villeda Group Name: 1 1 [address] PayID: [id number] [place] [address] Problems Date Description Provider Status Onset: 09/02/2013 [...] mouth Vickie Oxide -MG 2016 every day Rose Mary, Supplement M.DLily Aspirin 10/29/ Active Tablets DR [...] Vickie Tartrate 0000 - by mouth a Montezuma, M.D. 2018 Vital Signs Date Vital Result Comment 02/13/2018 Heart Rate 76 /min BP Systolic [...] 0.03 ng/mL Not supportive of diagnosis of [place] 0.03 - 0.50 ng/mL Indeterminate: suggest serial studies if clinically indicated. Greater than 0.5 ng/mL Consistent with diagnosis of [place] 4 Because ethnic data is not always [...] soon 13 soon 14 CALL LILI ARROYO [phone] PLEASE CALL PATIENTS CELL PHONE AT [phone] 15 Because ethnic data is not always [...] 0.03 ng/mL Not supportive of diagnosis of [place] 0.03 - 0.50 ng/mL Indeterminate: suggest serial studies if clinically indicated. Greater than 0.5 ng/mL Consistent with diagnosis of [place] 18 >100 to <200 pg/mL: likely compensated [...] failure <15 (or dialysis) 25 Verbal to [id number] by [id number] at 1007 on 09/03/13. Results read back accurately. Procedures Date CPT Code Description Status 02/04/2018 96513 Carpal Tunnel Release Completed 02/04/2018 49939 Carpal Tunnel Release Completed 01/24/2018 72004 EKG Tracing & Interpretation Completed 07/02/2017 80649 Cath PLMT&NJX L Ventriculog Img S&I Completed 07/01/2017 96473 ECHO Transthorasic Realtime 2D W Doppler & Color Completed Flow [facility]osp 07/01/2017 63463 EKG, Interpretation Only Completed 05/10/2017 69040 Carpal Tunnel Release Completed 05/10/2017 33500 Carpal Tunnel Release Completed 01/02/2017 22050 EKG Tracing & Interpretation Completed 12/03/2016 72159 EKG, Interpretation Only Completed 12/03/2016 16940 Cardioversion Completed 11/28/2016 28478 EKG Tracing & Interpretation Completed 02/10/2016 14073 EKG Tracing & Interpretation Completed 07/21/2015 48381 ECHO Transthoracic, Real-Time 2D With Doppler And Color Completed Flow 02/11/2015 74901 EKG Tracing & Interpretation Completed 07/30/2014 97489 EKG Tracing & Interpretation Completed 01/06/2014 31934 EKG Tracing & Interpretation Completed 12/22/2013 00824 EKG, Interpretation Only Completed 12/22/2013 96563 Cardioversion Completed 12/21/2013 19908 Echocardiogram, Limited Study Completed 09/25/2013 61595 EKG Tracing & Interpretation Completed 09/03/2013 14742 EKG, Interpretation Only Completed 09/03/2013 73292 Cardioversion Completed 10/01/2012 69477 EKG Tracing & Interpretation Completed Encounters Type Date Location Provider CPT E/M Dx Office Visit 01/24/2018 [facility] Mariano Garcia, 38200 I48.0 10:45a [facility] Hyacinth R94.31 I42.9 Office Visit 01/16/2018 1:30p [facility] Magali Ogden, 60147 G56.01 Of Petrona Claros Office Visit 12/26/2017 1:15p [facility] Henny Hathaway, 68026 G56.01 Of Petrona MARTÍNEZ-C Office Visit 07/16/2017 1:30p [facility] Mariano Garcia, 57257 I48.91 [email or web address]] M.Britney I10 R00.1 Office Visit 07/03/2017 10:15a [facility], Luis M Marte, 45183 I47.2 Hospitalists Hyacinth I48.91 I10 Office Visit 07/02/2017 10:15a [facility], Luis M Marte, 86807 I47.2 Hospitalists Hyacinth I48.91 I10 Office Visit 07/01/2017 10:14a [facility], Adelfo Adhikari M.D. 75711 I47.2 Hospitalists I48.91 I10 Office Visit 06/30/2017 10:13a [facility], Binh Alonso, 94287 I47.2 Hospitalists N.PLily I48.91 I10 Office Visit 06/30/2017 2:37p [facility] [place] [address] I48.0 [facility] I42.9 I10 Z79.01 R00.0 Office Visit 05/01/2017 11:45a [facility] Mariano Garcia, 01925 I48.0 [facility] M.D. I10 Z01.810 G56.02 Office Visit 04/08/2017 8:00a [facility] Magali Ogden, 73754 G56.02 Of Petrona Claros Office Visit 01/02/2017 8:45a [facility] Of Mariano Garcia, 42200 I48.0 [employer] M.D. I10 Office Visit 11/28/2016 12:00p [facility] Of Mariano Tan Brand, 89777 I48.0 [employer] M.D. I10 Office Visit 02/10/2016 3:00p [facility] Of Mariano Garcia, 12190 I48.0 [employer] M.D. I10 Office Visit 02/11/2015 1:30p [facility] Of Mariano Tan Brand, 93200 427.31 [employer] M.D. 401.9 Office Visit 07/30/2014 11:45a [facility] Of Mariano Garcia, 70689 427.31 [employer] M.D. 401.9 Office Visit 01/06/2014 11:15a [facility] Of Mariano Garcia, 71621 427.31 [employer] M.D. 786.59 Office Visit 12/22/2013 4:39p [facility] Luis M Aldrich, 27037 786.59 Hospitalists N.P. 427.31 401.9 461.9 Office Visit 12/22/2013 1:19p [facility] Of Mariano Garcia, 14954 427.31 [employer] M.D. Office Visit 12/21/2013 4:38p [facility] Nataliia Carvajal N.P. 74888 786.59 Hospitalists 427.31 401.9 461.9 Office Visit 09/25/2013 12:45p [facility] Of Mariano Tan Brand, 65348 427.31 [employer] M.D. Office Visit 09/02/2013 11:15a [facility] Of Mariano Jay. Brand, 20420 427.31 [employer] M.D. Office Visit 10/01/2012 10:15a [facility] Of Mariano Tan Brand, 19854 427.31 [employer] M.D. 401.9 Plan of Care Future Appointment(s):03/06/2018 2:00 pm - Magali Ogden M.D. at [facility].02/13/2018 - Henny Hathaway, [facility]-CG56.01 Carpal tunnel syndrome, right upper limbFollow up:Follow up: 3 weeks
[2018-03-07 13:09] LABS: INR 2.69 (0.77-1.02)
[2018-03-07 13:24] VITALS: BP 125/91
--- NOTE | 2018-03-07 17:35 | ED ---
Neha Mackay Gabriel, scribed for Haile Ayala MD on 03/07/18 at 1254 . Laceration/Wound HPI - HPI Summary HPI Summary: This patient is a 72 year old M presenting to [facility] c/o of a laceration on his left lateral thigh. Pt was cutting scrap wood with a circular saw when he slipped and grazed the lateral aspect of his left thigh. The pt is on Coumadin for afib, bleeding is controlled. - History of Current Complaint Stated Complaint: LT KNEE LAC Time Seen by Provider: 03/07/18 12:47 Hx Obtained From: Patient Onset/Duration: Lasting Minutes, Still Present Onset Severity: Moderate Current Severity: Moderate Pain Intensity: 0 Pain Scale Used: 0-10 Numeric Associated Signs & Symptoms: Negative - fever - Additional Pertinent History Primary Care Physician: [id number] - Allergy/Home Medications Allergies/Adverse Reactions: Allergies Allergy/AdvReac Type Severity Reaction Status Date / Time No Known Allergies Allergy Verified 02/04/18 08:19 PMH/Surg Hx/FS Hx/Imm Hx Endocrine/Hematology History: Reports: Hx Anticoagulant Therapy - COUMADIN Cardiovascular History: Reports: Hx Atrial Fibrillation, Hx Coronary Artery Disease, Hx Hypercholesterolemia - HLD, Hx Hypertension, Other Cardiovascular Problems/Disorders - HX OF A-FIB, FOLLOWED BY DR. KENNEDY Denies: Hx Peripheral Vascular Disease Respiratory History: Denies: Other Respiratory Problems/Disorders GI History: Denies: Other GI Disorders History: Reports: Hx Kidney Stones - HX OF KIDNEY STONES, NOT RECENT Denies: Other Problems/Disorders Musculoskeletal History: Reports: Hx Arthritis - OA, Hx Tendonitis - Carpal tunnel syndrome, right wrist, left was released Denies: Hx Osteoporosis, Other Musculoskeletal History Sensory History: Reports: Hx Cataracts - RIGHT EYE, Hx Contacts or Glasses - Glasses Denies: Hx Hearing Aid Opthamlomology History: Reports: Hx Cataracts - RIGHT EYE, Hx Contacts or Glasses - Glasses Neurological History: Reports: Other Neuro Impairments/Disorders - Right carpal tunnel syndrome, numbness and tingling Denies: Hx Headaches Psychiatric History: Denies: Hx Anxiety, Hx Depression - Surgical History Surgery Procedure, Year, and Place: RIGHT EYE CATARACT 2001 [facility]. RIGHT KNEE ARTHROSCOPY 2006 [facility]. CARDIOVERSION 10/[address] [facility] [address] KENNED[facility]. CHOLECYSTOMY 2011 [facility]. LEFT KNEE LIGAMENT REPAIR Hx Anesthesia Reactions: No Infectious Disease History: No Infectious Disease History: Denies: Traveled Outside the [place] in Last 30 Days - Family History Known Family History: Positive: Hypertension, Other - CVA - Social History Alcohol Use: None Alcohol Amount: NONE FOR PAST 6 MONTHS Substance Use Type: Reports: None Smoking Status (MU): Former Smoker Type: Pipe Amount Used/How Often: PIPE- 2 BOWLS /DAY FOR 2 YRS Length of Time of Smoking/Using Tobacco: 20 YRS Have You Smoked in the Last Year: No Review of Systems Negative: Fever Positive: Other - lac to left thigh All Other Systems Reviewed And Are Negative: Yes Physical Exam - Summary Physical Exam Summary: Appearance: Well appearing, no pain distress Skin: there is a 4cm laceration on the lateral left thigh that is 1cm wide, there are two skin tears proximal to this one is 4mm and the other is 8mm, there is mild ecchymosis distal to this Head/face: normal Eyes: EOMI, EMMY ENT: normal Neck: supple, non-tender Respiratory: CTA, breath sounds present Cardiovascular: irregularly irregular, pulses symmetrical Abdomen: non-tender, soft Bowel Sounds: present Musculoskeletal: normal, strength/ROM intact Neuro: normal, sensory motor intact, A&Ox3 Triage Information Reviewed: Yes Vital Signs On Initial Exam: Initial Vitals Temp Pulse Resp BP Pulse Ox 97.8 F 95 18 135/98 95 03/07/18 12:15 03/07/18 12:15 03/07/18 12:15 03/07/18 12:15 03/07/18 12:15 Vital Signs Reviewed: Yes Procedures - Laceration/Wound Repair 1 Location: lower extremity - left Description: Linear Anesthesia: 1.0%, Lido Length, Depth and Shape: 4cm x 1cm Betadine Prep?: Yes Irrigated w/ Saline (ccs): 500 Laceration/Wound Explored: clean Suture Type: Prolene - 3 Number of Sutures: 5 Layer Closure?: No Sterile Dressing Applied?: Yes Diagnostics - Vital Signs Vital Signs Temp Pulse Resp BP Pulse Ox 03/07/18 12:15 97.8 F 95 18 135/98 95 - Laboratory Lab Results: Lab Results 03/07/18 Range/Units 12:45 INR (Anticoag Therapy) 2.69 H (0.77-1.02) Lab Statement: Any lab studies that have been ordered have been reviewed, and results considered in the medical decision making process. Laceration Repair Course/Dx - Course Course Of Treatment: Patient on Coumadin without significant bleeding from his wound. The skin is torn as much as lacerated. It did require suture repair with vertical mattress sutures. Tetanus was updated with a Tdap vaccine. Cover with antibiotics. Suture removal in approximately 14 days. - Differential Dx Differental Diagnoses: Other - Laceration is moderate complexity, largest repaired is 4 cm - Clinical Impression Provider Diagnoses: Laceration Discharge - Sign-Out/Discharge Documenting (check all that apply): Discharge/Admit/Transfer - Discharge Plan Condition: Good Disposition: HOME Prescriptions: Cephalexin CAP* [Keflex CAP*] 500 mg PO TID #21 cap Patient Education Materials: Laceration (ED) Referrals: Luis M Argueta MD [Primary Care Provider] - Additional Instructions: Keep clean and dry. Change yellow dressing in 2 days time. Use ointment provided on the wound. Return with bleeding, redness, concern for infection or other concerns. Sutures to be removed in approximately 10-14 days. This can be done by your doctor or the urgent care or the ER. - Billing Disposition and Condition Condition: GOOD Disposition: HOME The documentation as recorded by the Neha rollins Gabriel accurately reflects the service I personally performed and the decisions made by , Haile Ayala MD.
== END 2018-03-07 13:24 | disposition home or self-care (01) ==
LOC: ED 11:59
DX: S71.112A Laceration without foreign body, left thigh, initial encounter (principal); W27.0XXA Contact with workbench tool, initial encounter; Y93.89 Activity, other specified; Y92.9 Unspecified place or not applicable; W01.0XXA Fall on same level from slipping, tripping and stumbling without subsequent striking against object, initial encounter; I48.91 Unspecified atrial fibrillation; Z79.01 Long term (current) use of anticoagulants; I25.10 Atherosclerotic heart disease of native coronary artery without angina pectoris; E78.00 Pure hypercholesterolemia, unspecified; E78.5 Hyperlipidemia, unspecified; I10 Essential (primary) hypertension; Z87.442 Personal history of urinary calculi; Z87.891 Personal history of nicotine dependence
CPT/HCPCS: 12001; 36415; 85610; 90471; 90715; 99282

== ENCOUNTER → 2018-03-21 10:58 | Emergency (ER) | payer MEDICARE ==
[2018-03-21 11:04] VITALS: BP 125/92
--- NOTE | 2018-03-21 12:24 | ED ---
Laceration/Wound HPI - HPI Summary HPI Summary: Patient is an otherwise healthy 72-year-old male presenting to the ED with suture removal. He has had 5 horizontal mattress sutures placed approximately 2 weeks ago. Patient has been keeping the area clean, pleasing salve to the area twice daily and changing the bandage. He has not been leaving this open to air. Denies fever sweats chills. Denies any redness around the area. - History of Current Complaint Stated Complaint: STITCHES REMOVED Time Seen by Provider: 03/21/18 11:05 Hx Obtained From: Patient Mechanism of Injury: Sharp/Blunt Trauma Onset/Duration: Sudden Onset Aggravating: Movement Alleviating: Compression Timing: Constant Onset Severity: Mild Current Severity: None Pain Intensity: 0 Pain Scale Used: 0-10 Numeric Associated Signs & Symptoms: Negative Related Hx: Anticoagulat Use - Additional Pertinent History Primary Care Physician: [id number] - Allergy/Home Medications Allergies/Adverse Reactions: Allergies Allergy/AdvReac Type Severity Reaction Status Date / Time No Known Allergies Allergy Verified 03/21/18 11:02 PMH/Surg Hx/FS Hx/Imm Hx Previously Healthy: Yes Endocrine/Hematology History: Reports: Hx Anticoagulant Therapy - COUMADIN Cardiovascular History: Reports: Hx Atrial Fibrillation, Hx Coronary Artery Disease, Hx Hypercholesterolemia - HLD, Hx Hypertension, Other Cardiovascular Problems/Disorders - HX OF A-FIB, FOLLOWED BY DR. KENNEDY Denies: Hx Peripheral Vascular Disease Respiratory History: Denies: Other Respiratory Problems/Disorders GI History: Denies: Other GI Disorders History: Reports: Hx Kidney Stones - HX OF KIDNEY STONES, NOT RECENT Denies: Other Problems/Disorders Musculoskeletal History: Reports: Hx Arthritis - OA, Hx Tendonitis - Carpal tunnel syndrome, right wrist, left was released Denies: Hx Osteoporosis, Other Musculoskeletal History Sensory History: Reports: Hx Cataracts - RIGHT EYE, Hx Contacts or Glasses - Glasses Denies: Hx Hearing Aid Opthamlomology History: Reports: Hx Cataracts - RIGHT EYE, Hx Contacts or Glasses - Glasses Neurological History: Reports: Other Neuro Impairments/Disorders - Right carpal tunnel syndrome, numbness and tingling Denies: Hx Headaches Psychiatric History: Denies: Hx Anxiety, Hx Depression - Surgical History Surgery Procedure, Year, and Place: RIGHT EYE CATARACT 2001 [facility]. RIGHT KNEE ARTHROSCOPY 2006 [facility] [place]. CARDIOVERSION 10/2009 [facility] [place] DR KENNEDY. CHOLECYSTOMY 2012 [facility] [place]. LEFT KNEE LIGAMENT REPAIR Hx Anesthesia Reactions: No - Immunization History Hx Pertussis Vaccination: No Immunizations Up to Date: Unable to Obtain/Confirm Infectious Disease History: No Infectious Disease History: Denies: Traveled Outside the [place] in Last 30 Days - Family History Known Family History: Positive: Hypertension, Other - CVA - Social History Occupation: Employed Full-time Lives: With Family Alcohol Use: None Alcohol Amount: NONE FOR PAST 6 MONTHS Hx Substance Use: No Substance Use Type: Reports: None Hx Tobacco Use: Yes Smoking Status (MU): Former Smoker Type: Pipe Amount Used/How Often: PIPE- 2 BOWLS /DAY FOR 2 YRS Length of Time of Smoking/Using Tobacco: 20 YRS Have You Smoked in the Last Year: No Review of Systems Constitutional: Negative Negative: Fever, Chills, Fatigue, Skin Diaphoresis Eyes: Negative Cardiovascular: Negative Respiratory: Negative Genitourinary: Negative Positive: no symptoms reported, see HPI Musculoskeletal: Negative Positive: Other - 4cm laceration to the L lateral thigh Neurological: Negative All Other Systems Reviewed And Are Negative: Yes Physical Exam Triage Information Reviewed: Yes Vital Signs On Initial Exam: Initial Vitals Temp Pulse Resp BP Pulse Ox 98.1 F 108 14 125/92 96 03/21/18 11:02 03/21/18 11:02 03/21/18 11:02 03/21/18 11:02 03/21/18 11:02 Vital Signs Reviewed: Yes Appearance: Positive: Well-Appearing, Well-Nourished Skin: Positive: Warm, Skin Color Reflects Adequate Perfusion, Other - 4cm laceration to the L lateral thigh Head/Face: Positive: Normal Head/Face Inspection Eyes: Positive: Normal, EOMI Neck: Positive: Supple Respiratory/Lung Sounds: Positive: Clear to Auscultation, Breath Sounds Present Musculoskeletal: Positive: Normal, Strength/ROM Intact Neurological: Positive: Sensory/Motor Intact Psychiatric: Positive: Affect/Mood Appropriate AVPU Assessment: Alert Diagnostics - Vital Signs Vital Signs Temp Pulse Resp BP Pulse Ox 03/21/18 11:02 98.1 F 108 14 125/92 96 - Laboratory Lab Statement: Any lab studies that have been ordered have been reviewed, and results considered in the medical decision making process. Laceration Repair Course/Dx - Course Course Of Treatment: 5 sutures removed. Area looks clean dry and intact. Anabiotic ointment applied, gauze applied. Patient will continue to apply antibiotic ointment 3-4 days. He understands return precautions. - Clinical Impression Provider Diagnoses: Visit for suture removal Discharge - Sign-Out/Discharge Documenting (check all that apply): Discharge/Admit/Transfer - Discharge Plan Condition: Stable Disposition: HOME Patient Education Materials: Stitches Removal (ED) Referrals: Luis M Argueta MD [Primary Care Provider] - Additional Instructions: Apply antibiotic ointment, gauze pad and change every 24 hours for the next 3-4 days. If he develop any redness or drainage around the area or if he develop fevers, return to the ED immediately - Billing Disposition and Condition Condition: STABLE Disposition: HOME
== END | disposition home or self-care (01) ==
LOC: ED 10:58
DX: Z48.02 Encounter for removal of sutures (principal); Z87.891 Personal history of nicotine dependence; Z79.01 Long term (current) use of anticoagulants; I48.91 Unspecified atrial fibrillation; I25.10 Atherosclerotic heart disease of native coronary artery without angina pectoris; E78.00 Pure hypercholesterolemia, unspecified; E78.5 Hyperlipidemia, unspecified; I10 Essential (primary) hypertension; Z87.442 Personal history of urinary calculi
CPT/HCPCS: 99281

== ENCOUNTER 2018-04-08 12:29 | Emergency (ER) | payer MEDICARE ==
[2018-04-08 13:19] LABS: Hematocrit 44 % (42-52); Hemoglobin 15.5 g/dl (14.0-18.0); Mean Corpuscular HGB Conc 35 g/dl (31-36); Mean Corpuscular Hemoglobin 30 pg (27-31); Mean Corpuscular Volume 85 fL (80-94); Mean Platelet Volume 7.9 um3 (7.4-10.4); Platelet Count 248 10^3/ul (150-450); Red Blood Count 5.21 10^6/ul (4.0-5.4); Red Cell Distribution Width 13 % (10.5-15); White Blood Count 9.7 10^3/ul (3.5-10.8)
[2018-04-08] MEDS ORDERED: Oxymetazoline 0.05% NASAL SPR* 15 ML BTL RIGHT NARE ONE (13:24)
[2018-04-08 13:28] LABS: INR 4.84 (0.77-1.02)
--- NOTE | 2018-04-08 13:28 | ED ---
Throat Pain/Nasal Congestion - HPI Summary HPI Summary: Patient here with right-sided epistaxis is started this morning. He reports he got up to answer phone call and make his coffee when his nose started bleeding. He applied ice and held pressure which stopped his nosebleed and an indeterminate amount of time but wasn't that long. He denies trauma such as blowing his nose, picking his nose or hitting his nose. He does take Coumadin and his level he reports most recently was 1.5. States he spoke with his nurse this morning from Dr. Garcia's office who told him to hold his Coumadin tonight. Denies difficulty breathing, swallowing, pain, lightheadedness, shortness of breath, chest pain, nausea, vomiting, diarrhea. - History of Current Complaint Chief Complaint: EDEpistaxis Time Seen by Provider: 04/08/18 12:56 Hx Obtained From: Patient - Allergies/Home Medications Allergies/Adverse Reactions: Allergies Allergy/AdvReac Type Severity Reaction Status Date / Time No Known Allergies Allergy Verified 04/08/18 12:41 Home Medications: Home Medications Lisinopril TAB* [Prinivil TAB*] 2.5 mg PO QAM 04/08/18 [History Confirmed ] Metoprolol Succinate XL TAB* [Toprol XL TAB*] 25 mg PO QAM 04/08/18 [History Confirmed 04/08/18] Warfarin TAB(*) [Coumadin TAB(*)] 5 mg PO EVERY OTHER DAY 04/08/18 [History Confirmed 04/08/18] PMH/Surg Hx/FS Hx/Imm Hx Previously Healthy: Yes Endocrine/Hematology History: Reports: Hx Anticoagulant Therapy - COUMADIN Cardiovascular History: Reports: Hx Atrial Fibrillation, Hx Coronary Artery Disease, Hx Hypercholesterolemia - HLD, Hx Hypertension, Other Cardiovascular Problems/Disorders - HX OF A-FIB, FOLLOWED BY DR. GARCIA Denies: Hx Peripheral Vascular Disease Respiratory History: Denies: Other Respiratory Problems/Disorders GI History: Denies: Other GI Disorders History: Reports: Hx Kidney Stones - HX OF KIDNEY STONES, NOT RECENT Denies: Other Problems/Disorders Musculoskeletal History: Reports: Hx Arthritis - OA, Hx Tendonitis - Carpal tunnel syndrome, right wrist, left was released Denies: Hx Osteoporosis, Other Musculoskeletal History Sensory History: Reports: Hx Cataracts - RIGHT EYE, Hx Contacts or Glasses - Glasses Denies: Hx Hearing Aid Opthamlomology History: Reports: Hx Cataracts - RIGHT EYE, Hx Contacts or Glasses - Glasses Neurological History: Reports: Other Neuro Impairments/Disorders - Right carpal tunnel syndrome, numbness and tingling Denies: Hx Headaches Psychiatric History: Denies: Hx Anxiety, Hx Depression - Surgical History Surgery Procedure, Year, and Place: [place] [facility] [place] 2006 [facility] [place] 10/[place] [facility] [place]. [place] 2011 [facility] [place] 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 Negative: Dental Pain, Sore Throat, Ear Ache, Nasal Discharge Cardiovascular: Negative Negative: Chest Pain Respiratory: Negative Negative: Shortness Of Breath, Cough Gastrointestinal: Negative Negative: Vomiting, Diarrhea, Nausea Positive: no symptoms reported Skin: Negative Negative: Rash, Bruising Neurological: Negative Psychological: Normal All Other Systems Reviewed And Are Negative: Yes Physical Exam Triage Information Reviewed: Yes Vital Signs On Initial Exam: Initial Vitals Temp Pulse Resp BP Pulse Ox 97.5 F 90 16 127/86 99 04/08/18 12:38 04/08/18 12:38 04/08/18 12:38 04/08/18 12:38 04/08/18 12:38 Vital Signs Reviewed: Yes Appearance: Positive: Well-Appearing, No Pain Distress Skin: Positive: Warm, Skin Color Reflects Adequate Perfusion, Dry Head/Face: Positive: Normal Head/Face Inspection Eyes: Positive: Normal, EOMI, Conjunctiva Clear ENT: Positive: Pharynx normal - no blood in posterior pharynx, TMs normal - No hemotympanum, Other - Dried blood in right nare - no active bleeding, no protruding vessels, no lesions. Negative: Trismus Respiratory/Lung Sounds: Positive: Breath Sounds Present Musculoskeletal: Positive: Normal, Strength/ROM Intact Neurological: Positive: Alert, Oriented to Person Place, Time, CN Intact II-III Procedures - Procedure Summary Procedure Summary: Placed Afrin-soaked gauze in patient's right near for 20 minutes and removed to reevaluate mucosa. Still no vessels or lesions identified. He has one small area of what appears to be friable tissue however does not bleed with palpation of Q-tip. Scabs removed and no bleeding from behind them. With no current active bleeding, no further treatment necessary at this time. Patient tolerated well Diagnostics - Vital Signs Vital Signs Temp Pulse Resp BP Pulse Ox 04/08/18 12:38 97.5 F 90 16 127/86 99 - Laboratory Lab Results: Lab Results 04/08/18 Range/Units 13:10 WBC 9.7 (3.5-10.8) 10^3/ul RBC 5.21 (4.0-5.4) 10^6/ul Hgb 15.5 (14.0-18.0) g/dl Hct 44 (42-52) % MCV 85 (80-94) fL MCH 30 (27-31) pg MCHC 35 (31-36) g/dl RDW 13 (10.5-15) % Plt Count 248 (150-450) 10^3/ul MPV 7.9 (7.4-10.4) um3 Result Diagrams: 04/08/18 13:10 04/08/18 13:10 Lab Statement: Any lab studies that have been ordered have been reviewed, and results considered in the medical decision making process. EENT Course/Dx - Course Course Of Treatment: Patient presents to ED with epistaxis on his right nares earlier this morning. Denies trauma however his Coumadin level was found to be elevated per Dr. Garcia's office. They called to tell him to hold his Coumadin for tonight. His INR continues to be elevated here 4.8 - advised he continue to follow with Dr. Garcia in regards to when he should restart his Coumadin. Conversation about avoiding nasal trauma such as picking, blowing, sneezing to prevent further bleeding until INR level may drop into therapeutic range. Review danger signs and symptoms with patient. Patient agrees with plan. - Diagnoses Provider Diagnoses: Epistaxis, Elevated INR Discharge - Sign-Out/Discharge Documenting (check all that apply): Discharge/Admit/Transfer - Discharge Plan Condition: Stable Disposition: HOME Patient Education Materials: Nosebleed (ED), Elevated INR (ED) Referrals: Luis M Argueta MD [Primary Care Provider] - Mariano Garcia MD [Medical Doctor] - Additional Instructions: The amount of Coumadin effect on your blood appears to be high today which most likely triggered your right-sided nosebleed. Since your not bleeding at this time, no further treatment is necessary. It is important to avoid picking, blowing, sneezing, rubbing the side of your nose to prevent further bleeding. You may also try staying hydrated and humidified to avoid dryness in this area. If you nose starts to bleed again, you may spray 2 squirts of Afrin medication up the right side of the nose, lean forward and pinch the soft part of your nose for 20 consistent minutes. If your nosebleed persists, return to the emergency department. Hold your coumadin tonight as directed by Dr. Garcia - call again today to update him about your current level here (4.84) and request when to restart your coumadin and at what dose. - Billing Disposition and Condition Condition: STABLE Disposition: Home
[2018-04-08 13:39] LABS: EGFR Non-African American 66.5 (>60)
[2018-04-08 14:54] VITALS: BP 120/102
== END 2018-04-08 14:52 | disposition home or self-care (01) ==
LOC: ED 12:29
DX: R04.0 Epistaxis (principal); R79.1 Abnormal coagulation profile; I48.91 Unspecified atrial fibrillation; Z79.01 Long term (current) use of anticoagulants; I25.10 Atherosclerotic heart disease of native coronary artery without angina pectoris; I10 Essential (primary) hypertension; E78.5 Hyperlipidemia, unspecified; Z87.442 Personal history of urinary calculi; Z90.49 Acquired absence of other specified parts of digestive tract; Z82.49 Family history of ischemic heart disease and other diseases of the circulatory system; Z82.3 Family history of stroke; Z87.891 Personal history of nicotine dependence
CPT/HCPCS: 36415; 80053; 85027; 85610; 99282; A9270-GY

== ENCOUNTER 2018-06-27 15:09 | Emergency (ER) | payer MEDICARE, MEDICAID ==
[2018-06-27 18:25] VITALS: BP 136/98
--- NOTE | 2018-06-28 17:04 | ED ---
Neck Pain - HPI Summary HPI Summary: Patient is a 73-year-old male presenting to the ED with left-sided neck tenderness 3 days. He states he awoke this way and feels he may have slept on it wrong. Denies any posterior cervical spine tenderness. Denies any thoracic or lumbar spine tenderness. He is able to rotate about the neck to the right, however is unable to do so to the left. Denies any fevers, sweats, chills. Denies any color temperature changes around the area. Pulses +2 bilaterally in both lower and upper extremities. He states this has not happened to him before. He is unable to take NSAIDs due to blood thinners for A. fib. He has been using ice and heat intermittently with no relief. He denies any stretching. No nuchal rigidity, headache or photophobia. - History of Current Complaint Chief Complaint: EDNeckComplaint Stated Complaint: NECK PAIN Time Seen by Provider: 06/27/18 17:02 Hx Obtained From: Patient Onset/Duration Of Injury/Symptoms: Days Mechanism Of Injury: No Known Trauma Timing: Constant Onset/Duration: Sudden Onset Severity Initially: Mild Severity Currently: Mild Pain Intensity: 2 Pain Scale Used: 0-10 Numeric Character: Aching Aggravating Factors: Position Alleviating Factors: Position Associated Signs & Symptoms: Negative: Swelling, Redness, Nuchal Rigity, Weakness, Headache, Paresthesia Related History: Other - Denies any previous neck injury - Risk Factors Meningitis Risk Factors: Negative - Allergies/Home Medications Allergies/Adverse Reactions: Allergies Allergy/AdvReac Type Severity Reaction Status Date / Time No Known Allergies Allergy Verified 06/27/18 15:21 PMH/Surg Hx/FS Hx/Imm Hx Previously Healthy: Yes Endocrine/Hematology History: Reports: Hx Anticoagulant Therapy - COUMADIN Cardiovascular History: Reports: Hx Atrial Fibrillation, Hx Coronary Artery Disease, Hx Hypercholesterolemia - HLD, Hx Hypertension - MEDICATED, Other Cardiovascular Problems/Disorders - HX OF A-FIB, FOLLOWED BY DR. KENNEDY Denies: Hx Congestive Heart Failure, Hx Pacemaker/ICD, Hx Peripheral Vascular Disease Respiratory History: Denies: Hx Asthma, Hx Chronic Obstructive Pulmonary Disease (COPD), Other Respiratory Problems/Disorders GI History: Denies: Other GI Disorders History: Reports: Hx Kidney Stones - HX OF KIDNEY STONES, NOT RECENT Denies: Other Problems/Disorders Musculoskeletal History: Reports: Hx Arthritis - OA, Hx Tendonitis - Carpal tunnel syndrome, right wrist, left was released Denies: Hx Osteoporosis, Other Musculoskeletal History Sensory History: Reports: Hx Cataracts - RIGHT EYE, Hx Contacts or Glasses - Glasses Denies: Hx Hearing Aid Opthamlomology History: Reports: Hx Cataracts - RIGHT EYE, Hx Contacts or Glasses - Glasses Neurological History: Reports: Other Neuro Impairments/Disorders - Right carpal tunnel syndrome, numbness and tingling Denies: Hx Headaches Psychiatric History: Denies: Hx Anxiety, Hx Depression - Surgical History Surgery Procedure, Year, and Place: RIGHT EYE CATARACT 2001 [facility] [place] RIGHT [place]NEE [place]THROSCOPY 2006 [facility] [place] CARDIOVERSION 10/2009 [facility] [place] KENNEDY. CHOLECYSTOMY 2011 [facility] [place]. LEFT KNEE LIGAMENT REPAIR Hx Anesthesia Reactions: No - Immunization History Hx Pertussis Vaccination: No Immunizations Up to Date: Yes Infectious Disease History: No Infectious Disease History: Denies: Traveled Outside the [place] in Last 30 Days - Family History Known Family History: Positive: Hypertension, Other - CVA - Social History Occupation: Employed Full-time Lives: Alone Alcohol Use: Occasionally Alcohol Amount: NONE FOR PAST 6 MONTHS Hx Substance Use: No Substance Use Type: Reports: None Hx Tobacco Use: No Smoking Status (MU): Former Smoker Type: Pipe Amount Used/How Often: PIPE- 2 BOWLS /DAY FOR 2 YRS Length of Time of Smoking/Using Tobacco: 20 YRS Have You Smoked in the Last Year: No Review of Systems Constitutional: Negative Negative: Fever, Chills, Fatigue, Skin Diaphoresis Negative: Palpitations, Chest Pain Negative: Shortness Of Breath, Cough Genitourinary: Negative Positive: no symptoms reported, see HPI Positive: Arthralgia - neck tenderness to the L. Negative: Myalgia Skin: Negative All Other Systems Reviewed And Are Negative: Yes Physical Exam Triage Information Reviewed: Yes Vital Signs On Initial Exam: Initial Vitals Temp Pulse Resp BP Pulse Ox 98.1 F 54 16 111/80 96 06/27/18 15:17 06/27/18 15:17 06/27/18 15:17 06/27/18 15:17 06/27/18 15:17 Vital Signs Reviewed: Yes Appearance: Positive: Well-Appearing, No Pain Distress, Well-Nourished Skin: Positive: Warm, Skin Color Reflects Adequate Perfusion Head/Face: Positive: Normal Head/Face Inspection Eyes: Positive: EOMI, EMMY, Conjunctiva Clear Neck: Positive: Tenderness @ - rotation of head to the neck Respiratory/Lung Sounds: Positive: Clear to Auscultation, Breath Sounds Present Cardiovascular: Positive: RRR, Pulses are Symmetrical in both Upper and Lower Extremities Musculoskeletal: Positive: Normal, Strength/ROM Intact Neurological: Positive: Alert, Oriented to Person Place, Time, Speech Normal Psychiatric: Positive: Normal, Affect/Mood Appropriate AVPU Assessment: Alert Diagnostics - Vital Signs Vital Signs Temp Pulse Resp BP Pulse Ox 06/27/18 18:24 98.1 F 60 18 136/98 97 06/27/18 15:17 98.1 F 54 16 111/80 96 - Laboratory Lab Statement: Any lab studies that have been ordered have been reviewed, and results considered in the medical decision making process. Neck Course/Dx - Course Course Of Treatment: The course of treatment, the patient's evaluated for left- sided neck pain. Denies any trauma or injury. Unable to rotate the neck to the left side. No tenderness on deep palpation of the sternal quite a mastoid muscles bilaterally. Pulses +2 intact bilaterally. Discussed options with patient including moist heat to the area, Tylenol as well as muscle relaxer. He would like to check muscle relaxer at this time. I have given him a series of stretches also to do. He is okay for discharge at this time and will return for any worsening or changing symptoms. Lungs CTA. RRR. Vital signs are stable on discharge. - Diagnoses Differential Dx/HQI/PQRI: Positive: Arthritis, Cervical Fracture, Sprain, Strain , Torticollis Provider Diagnoses: Cervical strain, acute Discharge - Sign-Out/Discharge Documenting (check all that apply): Patient Departure - Discharge Plan Condition: Stable Disposition: HOME Prescriptions: Cyclobenzaprine TAB* [Flexeril TAB*] 10 mg PO BID PRN #10 tab PRN Reason: Pain Patient Education Materials: Neck Pain (ED) Referrals: Luis M Argueta MD [Primary Care Provider] - Additional Instructions: Tylenol as needed for pain flexeril twice daily as needed for muscle pain - do not drive or operate machinery with this medication Moist heat to the area several times per day Gentle stretches of the neck - Billing Disposition and Condition Condition: STABLE Disposition: Home
== END 2018-06-27 18:24 | disposition home or self-care (01) ==
LOC: ED 15:09
DX: S16.1XXA Strain of muscle, fascia and tendon at neck level, initial encounter (principal); Z79.01 Long term (current) use of anticoagulants; I25.10 Atherosclerotic heart disease of native coronary artery without angina pectoris; I48.91 Unspecified atrial fibrillation; Z87.891 Personal history of nicotine dependence; X58.XXXA Exposure to other specified factors, initial encounter; Y92.9 Unspecified place or not applicable
CPT/HCPCS: 99282

== ENCOUNTER 2018-08-03 13:29 | Observation (INO) | payer MEDICARE, MEDICAID ==
--- OUTSIDE RECORDS SUMMARY | 2018-08-03 14:08 | XMS REPORT ---
:1945 External Reference #:[id number] Author Organization [facility] Address [address] [place] [id number] Phone [phone] Care Team Providers Name Role Phone Luis M Argueta MD Primary Care Physician Unavailable Payers Type Date Identification Numbers Payment Provider Subscriber Medicare Primary Effective: Policy Number: Medicare Stalin Villeda 2009 [id number] PayID: [id number] [address] [place] [address] Medigap Part B Expires: 2018 Policy Number: [id number] Medicaid Stalin Villeda Group Name: 1 1 [address] PayID: [id number] [place] [address] Medigap Part B Expires: 2018 Policy Number: [id number] Medicaid Stalin Villeda Group Name: 1 1 [address] PayID: [id number] [place] [address] Medigap Part B Policy Number: [id number] Medicaid Stalin Villeda Group Name: 1 1 [address] PayID: [id number] [place] [address] Problems Date Description Provider Status Onset: 09/02/2013 Atrial fibrillation Mariano Garcia M.D. Active Onset: 01/06/2014 Chest pain Mariano Garcia M.D. Active Onset: 05/15/2018 Paroxysmal atrial fibrillation Vickie Bazzi M.D. Active Family History Date Family Member(s) Problem(s) Comments General Hypertension General Stroke Social History Type Date Description Comments Marital Status Single Lives With Alone Occupation Retired Cigarette Use Former Cigarette Smoker ETOH Use Denies alcohol use Smoking Patient is a former smoker Recreational Drug Use Denies Drug Use Daily Caffeine Consumes on average 3 cups of regular coffee per day Exercise [...] mouth Vickie Oxide -MG 2016 every day Glasco, Supplement M.D. Aspirin 10/29/ Active Tablets DR 81mg 90tabs 1 by mouth Other 2016 every day Ordering Provider Atorvastatin 10/29/ Active Tablets 40mg 90tabs 1 by mouth Mariano D. Calcium 2017 every day Brand, M.D. Amiodarone HCL / Active Tablets 200mg 90tabs 1 by mouth Mariano D. 0000 every day Brand, M.D. Warfarin / Active Tablets 5mg 90tabs alternate Mariano D. Sodium 0000 with 3 mg Brand, tablet as M.D. directed Lisinopril / Active Tablets 2.5mg 90tabs 1 by mouth Mariano D. 0000 every day Brand, M.D. Warfarin / Active Tablets 3mg 90tabs 1 tab Mariano D. Sodium 0000 every Brand, night or M.D. as directed Metoprolol / Active Tablets ER 25mg 60tabs 1 tab Vickie Succinate ER 0000 24HR twice a Glasco, day M.D. Ultracet 04/25/ Hx Tablets 37.5-325mg 20tabs 1 tabs by Magali 2016 - mouth Ogden, 05/10/ every 4-6 M.D. 2017 hours as needed pain Metoprolol // Hx Tablets ER 50mg 1 po qd Niziol, Succinate ER 0000 - 24HR Luis M 2013 Terbinafine / Hx Tablets 250mg 90tabs 1 po qd Unknown HCL 0000 - 2016 Meloxicam / Hx Tablets 15mg 30tabs 1 po qd Unknown 0000 - 2013 Fenofibric / Hx Capsules 135mg 90caps once a day Unknown Acid 0000 - DR 2013 Atorvastatin / Hx Tablets 20mg 30tabs take 1 Unknown Calcium 0000 - tablet at 11/13/ bedtime 2014 Metoprolol / Hx Tablets ER 50mg 1 po qd Niziol, Succinate ER 0000 - 24HR Luis M, 2015 Metoprolol 00/ Hx Tablets 50mg 30tabs 1 by mouth Vickie Tartrate 0000 - by mouth a Glasco, day M.DLily 2017 Vital Signs Date Vital Result Comment 07/30/2018 Height 71 inches 5'11" Weight 211.00 lb Heart Rate 72 /min BP Systolic Sitting 99 mmHg lue rosa cuff BP Diastolic Sitting 70 mmHg lue rosa cuff BMI (Body Mass Index) 29.4 kg/m2 07/14/2018 Height 71 inches 5'11" Weight 212.00 lb Heart Rate 76 /min irregular BP Systolic Sitting 20 mmHg reg. adult cuff sitting BP Diastolic Sitting 98 mmHg reg. adult cuff sitting BP Systolic Standing 110 mmHg reg adult cuff standing BP Diastolic Standing 90 mmHg reg adult cuff standing BMI (Body Mass Index) 29.6 kg/m2 05/30/2018 Height 71 inches 5'11" Weight 219.00 lb without shoes Heart Rate 69 /min BP Systolic Sitting 110 mmHg R arm with regular cuff BP Diastolic Sitting 60 mmHg R arm with regular cuff BP Systolic Standing 100 mmHg BP Diastolic Standing 60 mmHg Respiratory Rate 24 /min O2 % BldC Oximetry 96 % BMI (Body Mass Index) 30.5 kg/m2 05/22/2018 Height 71 inches 5'11" Weight 218.00 lb w/ shoes Heart Rate 100 /min BP Systolic Sitting 104 mmHg Rue, lg cuff BP Diastolic Sitting 70 mmHg Rue, lg cuff BP Systolic Standing 112 mmHg Rue BP Diastolic Standing 74 mmHg Rue Respiratory Rate 16 /min O2 % BldC Oximetry 98 % on Ra BMI (Body Mass Index) 30.4 kg/m2 Ejection Fraction 45-50% as of 06/2017 echo 05/15/2018 Height 71 inches 5'11" Heart Rate 64 /min irregular BP Systolic Sitting 118 mmHg sitting, Joel, reg cuff. BP Diastolic Sitting 86 mmHg sitting, Joel, reg cuff. Respiratory Rate 22 /min 03/06/2018 Height 71 inches 5'11" Weight 222.00 [...] Test Date Test Result H/L Range Note Order 05/15/2018 EKG <pending> Comp Metabolic Panel 05/15/2018 Sodium 143 mmol/L 135-145 Potassium 4.3 mmol/L 3.5-5.0 Chloride 107 mmol/L 101-111 Co2 Carbon Dioxide 26 mmol/L 22-32 Anion Gap 10 mmol/L 2-11 Glucose 98 mg/dL 70-100 Blood Urea Nitrogen 22 mg/dL 6-24 Creatinine 1.01 mg/dL 0.67-1.17 BUN/Creatinine Ratio 21.8 High 8-20 Calcium 9.4 mg/dL 8.6-10.3 Total Protein 6.1 g/dL Low 6.4-8.9 Albumin 4.2 g/dL 3.2-5.2 Globulin 1.9 g/dL Low 2-4 Albumin/Globulin Ratio 2.2 1-3 Total Bilirubin 2.40 mg/dL High 0.2-1.0 Alkaline Phosphatase 97 U/L 34-104 Alt 51 U/L 7-52 Ast 26 U/L 13-39 Egfr Non- 72.6 >60 Egfr 87.9 >60 1 Laboratory test finding 05/15/2018 TSH (Thyroid Stim 5.98 mcIU/mL High 0.34-5.60 Horm) Free T4 (Free Thyroxine) 1.52 ng/dL High 0.61-1.12 T3 Total 108 ng/dL 87-178 Inr/Protime 12/24/2017 Inr 1.92 High 0.77-1.02 Inr/Protime [...] Egfr Non- 59.1 >60 Egfr 76.0 >60 2 Laboratory test finding 12/03/2016 TSH (Thyroid Stim [...] Egfr Non- 85.6 >60 Egfr 110.1 >60 3 Potassium 4.2 mmol/L 3.5-5.0 Anion Gap 5 mmol/L 2-11 Ast 18 U/L 13-39 Laboratory test finding 09/07/2015 Troponin-I (TnI) 0.00 ng/mL <0.03 4 Laboratory test finding 05/31/2015 Inr/Protime 2.33 High [...] Egfr Non- 77.7 >60 Egfr 99.9 >60 5 Laboratory test finding 02/28/2015 Inr 2.42 High 0.78-1.07 Laboratory test finding 02/21/2015 Inr 2.02 High 0.78-1.07 Laboratory test finding 02/07/2015 Inr 2.55 High 0.78-1.07 Laboratory test finding 01/27/2015 Inr 1.66 High 0.78-1.07 Laboratory test finding 12/31/2014 Inr 2.53 High 0.78-1.07 6 Laboratory test finding 12/28/2014 Inr 3.68 High 0.78-1.07 7 Laboratory test finding 12/23/2014 Inr 2.30 High 0.78-1.07 8 Laboratory test finding 12/14/2014 Inr 3.85 High 0.78-1.07 9 Laboratory test finding 11/29/2014 Inr 2.69 High [...] Metabolic Panel 07/30/2014 Sodium 138 mmol/L 133-145 10 Potassium 4.5 mmol/L 3.7-5.6 10 Chloride 107 mmol/L 101-111 10 Co2 Carbon Dioxide 22 mmol/L 22-32 10 Anion Gap 9 mmol/L 2-11 10 Glucose 94 mg/dL 70-100 10 Blood Urea Nitrogen 15 mg/dL 6-24 10 Creatinine 1.08 mg/dL 0.67-1.17 10 BUN/Creatinine Ratio 13.9 8-20 10 Calcium 9.6 mg/dL 8.6-10.3 10 Egfr Non- 67.8 >60 10 Egfr 87.2 >60 10, 11 Laboratory test finding 07/30/2014 LDL Cholesterol Direct 149 mg/dL 10 , 12 Free T4 1.31 ng/mL High 0.61-1.12 10, 13 TSH (Thyroid Stimulating Horm) 6.46 IU/mL High 0.34-5.60 10, 14 CBC Auto Diff 07/30/2014 White Blood Count 7.7 10^3/uL 4.8-10.8 10 Red Blood Count 5.29 10^6/uL 4.0-5.4 10 Hemoglobin 15.5 g/dL 14.0-18.0 10 Hematocrit 44 % 42-52 10 Mean Corpuscular Volume 83 fL 80-94 10 Mean Corpuscular Hemoglobin 29 pg 27-31 10 Mean Corpuscular HGB Conc 35 g/dL 31-36 10 Red Cell Distribution Width 14 % 10.5-15 10 Platelet Count 293 10^3/uL 150-450 10 Mean Platelet Volume 8 um3 7.4-10.4 10 Abs Neutrophils 5.9 10^3/uL 1.5-7.7 10 Abs Lymphocytes 1.1 10^3/uL 1.0-4.8 10 Abs Monocytes 0.5 10^3/uL 0-0.8 10 Abs Eosinophils 0.1 10^3/uL 0-0.6 10 Abs Basophils 0 10^3/uL 0-0.2 10 Abs Nucleated RBC 0.01 10^3/uL 10 Granulocyte % 76.9 % 38-83 10 Lymphocyte % 14.5 % Low 25-47 10 Monocyte % 7.1 % 1-9 10 Eosinophil % 1.0 % 0-6 10 Basophil % 0.5 % 0-2 10 Nucleated Red Blood Cells % 0.1 10 Laboratory test finding 07/27/2014 Inr 1.65 High [...] Laboratory test finding 04/03/2014 Inr 1.06 0.85-1.06 15 Laboratory test finding 04/01/2014 Inr 1.04 0.85-1.06 [...] Egfr Non- 50.0 >60 Egfr 64.3 >60 16 Laboratory test finding 12/21/2013 LDL Cholesterol Direct 123 mg/dL 17 Creatine Kinase 70 U/L 10-223 CKMB 12/21/2013 CKMB ng/mL 2.9 ng/mL 0.6-6.3 Laboratory test finding 12/21/2013 Troponin I 0.01 ng/mL <0.03 18 Myoglobin 39.3 ng/mL 17.4-105.7 B Type Natriuretic Peptide 350 pg/mL 19 Type & Screen 12/21/2013 Patient Blood Type A Positive Antibody Screen NEGATIVE Laboratory test finding 12/16/2013 Inr 2.19 High 0.85-1.06 Laboratory test finding 11/23/2013 Inr 2.22 High 0.85-1.06 Laboratory test finding 11/11/2013 Inr 2.05 High 0.85-1.06 Laboratory test finding 11/03/2013 Inr 1.55 High 0.85-1.06 Laboratory test finding 10/26/2013 Inr 2.43 High 0.85-1.06 20 Laboratory test finding 10/13/2013 Inr 1.99 High 0.85-1.06 21 Laboratory test finding 10/06/2013 Inr 1.74 High 0.85-1.06 22 Laboratory test finding 09/22/2013 Inr 2.33 High 0.85-1.06 23 Laboratory test finding 09/16/2013 Inr 2.05 High 0.85-1.06 24 Inr/Protime 09/03/2013 Inr 5.46 High 0.87-0.97 Basic Metabolic Panel 09/03/2013 Sodium 140 mmol/L 133-145 Potassium 4.5 mmol/L 3.5-5.0 Chloride 108 mmol/L 101-111 Co2 Carbon Dioxide 26.0 mmol/L 22-32 Anion Gap 6.0 mmol/L 2-11 Glucose 103 mg/dL High 70-100 Blood Urea Nitrogen 16 mg/dL 6-24 Creatinine 1.10 mg/dL 0.50-1.40 BUN/Creatinine Ratio 14.5 8-20 Calcium 9.3 mg/dL 8.1-9.9 Egfr Non- 66.6 >60 Egfr 85.6 >60 25 CBC No Diff 09/03/2013 White Blood Count 5.4 10^3/uL 4.8-10.8 26 Red Blood Count 5.19 10^6/uL 4.0-5.4 Hemoglobin [...] 5 Kidney failure <15 (or dialysis) 3 Because ethnic data is not always readily [...] 15-29 5 Kidney failure <15 (or dialysis) 4 Reference Range and Interpretation: TnI (ng/mL) Interpretation Less Than 0.03 ng/mL Not supportive of diagnosis of NV 0.03 - 0.50 ng/mL Indeterminate: suggest serial studies if clinically indicated. Greater than 0.5 ng/mL Consistent with diagnosis of NV 5 Because ethnic data is not always readily [...] 15-29 5 Kidney failure <15 (or dialysis) 6 Please note: Effective December 01, 2014, [...] of a new reagent lot number. 9 Please note: Effective December 01, 2014, the reference value for this test has changed due to the validation and activation of a new reagent lot number. 10 soon 11 Because ethnic data is not always readily [...] 15-29 5 Kidney failure <15 (or dialysis) 12 Desirable <100 Near Optimal 100-129 Borderline high 130-159 High 160-189 Very High >189 13 soon 14 soon 15 CALL LILI ARROYO [phone] PLEASE CALL PATIENTS CELL PHONE AT [phone] 16 Because ethnic data is not always readily [...] 15-29 5 Kidney failure <15 (or dialysis) 17 Desirable <100 Near Optimal 100-129 Borderline high 130-159 High 160-189 Very High >189 18 Reference Range and Interpretation: TnI (ng/mL) Interpretation Less Than 0.03 ng/mL Not supportive of diagnosis of NV 0.03 - 0.50 ng/mL Indeterminate: suggest serial studies if clinically indicated. Greater than 0.5 ng/mL Consistent with diagnosis of NV 19 >100 to <200 pg/mL: likely compensated congestive heart failure (CHF) 200 to 400 pg/mL: likely moderate CHF >400 pg/mL: likely moderate to severe CHF [place] [facility] 20 Please note the change in the INR reference range effective 13. 21 Please note the change in the INR reference range effective 13. 22 Please note the change in the INR reference range effective 13. 23 Please note the change in the INR reference range effective 13. 24 Please note the change in the INR reference range effective 13. 25 Because ethnic data is not always readily [...] 15-29 5 Kidney failure <15 (or dialysis) 26 Verbal to [id number] by [id number] at 1007 on 09/03/13. Results read back accurately. Procedures Date CPT Code Description Status 07/30/2018 08807 EKG Tracing & Interpretation Completed 07/15/2018 97190 Moderate Sedation Services; Same Phys Intl 15 Mins; PT Completed >=5 Years 07/15/2018 92039 Color Flow Doppler/Interp & Reprt Completed 07/15/2018 41259 Pulse Wave/Continuous-Interp.RPT Completed 07/15/2018 71220 Echocardiography, Transesophageal, Real Time W/Image 2D Completed W/W/O M-M 07/15/2018 32919 Cardioversion Completed 07/14/2018 62317 EKG Tracing & Interpretation Completed 05/30/2018 27693 EKG Tracing & Interpretation Completed 05/27/2018 86929 Cardioversion Completed 05/27/2018 45928 Moderate Sedation Services; Same Phys Intl 15 Mins; PT Completed >=5 Years 05/22/2018 19451 EKG Tracing & Interpretation Completed 05/15/2018 32054 EKG Tracing & Interpretation Completed 02/04/2018 64854 Carpal Tunnel Release Completed 02/04/2018 11549 Carpal Tunnel Release Completed 01/24/2018 51913 EKG Tracing & Interpretation Completed 07/02/2017 48395 Cath PLMT&NJX L Ventriculog Img S&I Completed 07/01/2017 19109 ECHO Transthorasic Realtime 2D W Doppler & Color Flow Completed Hosp 07/01/2017 80209 EKG, Interpretation Only Completed 05/10/2017 85975 Carpal Tunnel Release Completed 05/10/2017 29211 Carpal Tunnel Release Completed 01/02/2017 69346 EKG Tracing & Interpretation Completed 12/03/2016 19533 EKG, Interpretation Only Completed 12/03/2016 51348 Cardioversion Completed 11/28/2016 47827 EKG Tracing & Interpretation Completed 02/10/2016 76753 EKG Tracing & Interpretation Completed 07/21/2015 50388 ECHO Transthoracic, Real-Time 2D With Doppler And Color Completed Flow 02/11/2015 25767 EKG Tracing & Interpretation Completed 07/30/2014 44267 EKG Tracing & Interpretation Completed 01/06/2014 52494 EKG Tracing & Interpretation Completed 12/22/2013 67066 EKG, Interpretation Only Completed 12/22/2013 71042 Cardioversion Completed 12/21/2013 41067 Echocardiogram, Limited Study Completed 09/25/2013 46622 EKG Tracing & Interpretation Completed 09/03/2013 65534 EKG, Interpretation Only Completed 09/03/2013 46611 Cardioversion Completed 10/01/2012 29142 EKG Tracing & Interpretation Completed Encounters Type Date Location Provider CPT E/M Dx Office Visit 05/22/2018 [facility] Mariano Garcia, 88418 I48.0 3:15p Tristan Claros I42.9 Office Visit 05/15/2018 12:00p [facility] [place] Ghada Bazzi M.D. 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, Luis M Marte, 68959 I47.2 Hospitalists Hyacinth I48.91 I10 Office Visit 07/02/2017 10:15a [facility], Luis M Marte, 43045 I47.2 Hospitalists Hyacinth I48.91 I10 Office Visit 07/01/2017 10:14a [facility] Adelfo Adhikari M.D. 11767 I47.2 Hospitalists I48.91 I10 Office Visit 06/30/2017 10:13a [facility], Binh Gavin, 41581 I47.2 Hospitalists N.P. I48.91 I10 Office Visit 06/30/2017 2:37p [facility] Of Clint Martinez, 16534 I48.0 [facility] I42.9 I10 Z79.01 R00.0 Office Visit 05/01/2017 11:45a [facility] Of Marianopablo Garcia, 97364 I48.0 [employer] Dispatcher M.D. I10 Z01.810 G56.02 Office Visit 04/08/2017 8:00a [facility] Magali Ogden, 53135 G56.02 Of Petrona Claros Office Visit 01/02/2017 8:45a [facility] Of Mariano Garcia, 92158 I48.0 [employer] Dispatcher M.D. I10 Office Visit 11/28/2016 12:00p [facility] Of Mariano Garcia, 58454 I48.0 Aircraft [employer] Dispatcher M.D. I10 Office Visit 02/10/2016 3:00p [facility] Of Mariano DLily Garcia, 42200 I48.0 [employer] Dispatcher M.D. I10 Office Visit 02/11/2015 1:30p [facility] Of Mariano Garcia, 64190 427.31 [employer] Dispatcher M.D. 401.9 Office Visit 07/30/2014 11:45a [facility] Of Marianopablo Garcia, 15277 427.31 Aircraft Charter Dispatcher M.D. 401.9 Office Visit 01/06/2014 11:15a [facility] Of Mariano Garcia, 93122 427.31 [employer] Dispatcher M.D. 786.59 Office Visit 12/22/2013 4:39p [facility], Luis M Aldrich, 06520 786.59 Hospitalists N.P. 427.31 401.9 461.9 Office Visit 12/22/2013 1:19p [facility] Of Mariano Garcia, 44844 427.31 Aircraft [employer] Dispatcher M.D. Office Visit 12/21/2013 4:38p [facility], Nataliia Carvajal, N.P. 83808 786.59 Hospitalists 427.31 401.9 461.9 Office Visit 09/25/2013 12:45p [facility] Mariano Garcia, 72676 427.31 Tristan Claros Office Visit 09/02/2013 11:15a [facility] Mariano Garcia, 32186 427.31 Tristan Claros Office Visit 10/01/2012 10:15a [facility] [place] Jonathan Garcia, 75420 427.31 Tristan Claros 401.9 Plan of Care Future Appointment(s):08/19/2018 1:30 pm - Mariano Garcia M.D. at [facility] AT [facility]08/11/2018 9:00 am - Mariano Garcia M.D. at [facility]08/05/2018 9:30 am - Mariano Garcia M.D. at [facility]07/30/2018 - Mariano Garcia M.D.R94.31 Abnormal electrocardiogram [ECG] [EKG]New Orders:Implant PacemakerCardioversionFollow up: wound check after rhizcA91.0 Atrioventricular block, first jdkwoqH72.9 Cardiomyopathy, uqgucycjcmmC17.0 Tachycardia, gjtqolllwmtP72.1 Bradycardia, unspecified
--- OUTSIDE RECORDS SUMMARY | 2018-08-03 14:09 | XMS REPORT ---
:1945 External Reference #:[id number] Author Organization [facility] Address [address] [place] [id number] Phone [phone] Care Team Providers Name Role Phone Luis M Argueta MD Primary Care Physician Unavailable Payers Type Date Identification Numbers Payment Provider Subscriber Medicare Primary Effective: Policy Number: Medicare Stalin Villeda 2009 [id number] PayID: [id number] [address] [place] [address] Medigap Part B Expires: 2018 Policy Number: [id number] Medicaid Stalin Villeda Group Name: 1 1 [address] PayID: [id number] [place] [address] Medigap Part B Expires: 2018 Policy Number: [id number] Medicaid Stalin Villeda Group Name: 1 1 [address] PayID: [id number] [place] [address] Medigap Part B Policy Number: [id number] Medicaid Stalin Villeda Group Name: 1 1 [address] PayID: [id number] [place] [address] Problems Date Description Provider Status Onset: 09/02/2013 [...] mouth Vickie Oxide -MG 2016 every day Vickey Bazzi M.D. Aspirin 10/29/ Active Tablets DR 81mg 90tabs 1 by mouth Other 2016 every day Ordering Provider Atorvastatin 10/29/ Active Tablets 40mg 90tabs 1 by mouth Mariano DLily Calcium 2017 every day Brand, MIvone Amiodarone HCL / Active Tablets 200mg 90tabs 1 by mouth Mariano D. 0000 every day Brand, M.DLily Warfarin / Active Tablets 5mg 90tabs alternate Mariano D. Sodium 0000 with 3 mg Brand, tablet as M.D. directed Lisinopril / Active Tablets 2.5mg 90tabs 1 by mouth Mariano D. 0000 every day Brand, M.D. Warfarin / Active Tablets 3mg 90tabs 1 tab Mariano D. Sodium 0000 every Brand, night or M.D. as directed Metoprolol /00/ Active Tablets ER 25mg 60tabs 1 tAb bid Vickie Succinate ER 0000 24HR Hyacinth Bazzi Ultracet 04/25/ Hx Tablets 37.5-325mg 20tabs 1 [...] day Unknown Acid 0000 - 2013 Atorvastatin / Hx Tablets 20mg 30tabs take 1 Unknown Calcium 0000 - tablet at 11/13/ bedtime 2014 Metoprolol / Hx Tablets ER 50mg 1 po qd Niziol, Succinate ER 0000 - 24HR Luis M, 2015 Metoprolol 00/ Hx Tablets 50mg 30tabs 1 by mouth Vickie Tartrate 0000 - by mouth merritt Rose Mary, M.D. 2017 Vital Signs Date Vital Result Comment 07/14/2018 Height 71 inches 5'11" Weight 212.00 [...] 0.03 ng/mL Not supportive of diagnosis of [place] 0.03 - 0.50 ng/mL Indeterminate: suggest serial studies if clinically indicated. Greater than 0.5 ng/mL Consistent with diagnosis of [place] 5 Because ethnic data is not always [...] soon 14 soon 15 CALL LILI ARROYO [phone] PLEASE CALL PATIENTS CELL PHONE AT [phone] 16 Because ethnic data is not always [...] 0.03 ng/mL Not supportive of diagnosis of [place] 0.03 - 0.50 ng/mL Indeterminate: suggest serial studies if clinically indicated. Greater than 0.5 ng/mL Consistent with diagnosis of [place] 19 >100 to <200 pg/mL: likely compensated [...] failure <15 (or dialysis) 26 Verbal to [id number] by [id number] at 1007 on 09/03/13. Results read back accurately. Procedures Date CPT Code Description Status 07/15/2018 09391 Color Flow Doppler/Interp & Reprt Completed 07/15/2018 28763 Pulse Wave/Continuous-Interp.RPT Completed 07/15/2018 43405 Echocardiography, Transesophageal, Real Time W/Image 2D Completed W/W/O M-M 07/15/2018 67902 Cardioversion Completed 07/14/2018 50124 EKG Tracing & Interpretation Completed 05/30/2018 85768 EKG Tracing & Interpretation Completed 05/27/2018 19595 Moderate Sedation Services; Same Phys Intl 15 Mins; PT Completed >=5 Years 05/27/2018 72588 Cardioversion Completed 05/22/2018 97253 EKG Tracing & Interpretation Completed 05/15/2018 68571 EKG Tracing & Interpretation Completed 02/04/2018 78822 Carpal Tunnel Release Completed 02/04/2018 46604 Carpal Tunnel Release Completed 01/24/2018 25930 EKG Tracing & Interpretation Completed 07/02/2017 40983 Cath PLMT&NJX L Ventriculog Img S&I Completed 07/01/2017 85810 ECHO Transthorasic Realtime 2D W Doppler & Color Flow Completed Hosp 07/01/2017 91644 EKG, Interpretation Only Completed 05/10/2017 60417 Carpal Tunnel Release Completed 05/10/2017 81786 Carpal Tunnel Release Completed 01/02/2017 15138 EKG Tracing & Interpretation Completed 12/03/2016 72356 EKG, Interpretation Only Completed 12/03/2016 61313 Cardioversion Completed 11/28/2016 34998 EKG Tracing & Interpretation Completed 02/10/2016 89796 EKG Tracing & Interpretation Completed 07/21/2015 63825 ECHO Transthoracic, Real-Time 2D With Doppler And Color Completed Flow 02/11/2015 87540 EKG Tracing & Interpretation Completed 07/30/2014 99364 EKG Tracing & Interpretation Completed 01/06/2014 09835 EKG Tracing & Interpretation Completed 12/22/2013 96510 EKG, Interpretation Only Completed 12/22/2013 16070 Cardioversion Completed 12/21/2013 62434 Echocardiogram, Limited Study Completed 09/25/2013 24061 EKG Tracing & Interpretation Completed 09/03/2013 48808 EKG, Interpretation Only Completed 09/03/2013 89866 Cardioversion Completed 10/01/2012 90679 EKG Tracing & Interpretation Completed Encounters Type Date Location Provider CPT E/M Dx Office Visit 05/22/2018 [facility] Jonathan Garcia, 32432 I48.0 3:15p Tristan Claros I42.9 Office Visit 05/15/2018 12:00p [facility] Ghada Bazzi M.D. 07286 I48.0 [facility] R00.0 Office Visit 01/24/2018 10:45a [facility] Mariano Garcia, 75146 I48.0 Tristan Claros R94.31 I42.9 Office Visit 01/16/2018 1:30p [facility] Magali Ogden, 91119 G56.01 Of Petrona Claros Office Visit 12/26/2017 1:15p [facility] Henny Hathaway, 21984 G56.01 Of Petrona MARTÍNEZ-Eric Office Visit 07/16/2017 1:30p [facility] Mariano Garcia, 31091 I48.91 [employer] AT [facility] MIvone I10 R00.1 Office Visit 07/03/2017 10:15a [facility], Luis M Marte, 91726 I47.2 Hospitalists Hyacinth I48.91 I10 Office Visit 07/02/2017 10:15a [facility], Luis M Marte, 80514 I47.2 Hospitalists Hyacinth I48.91 I10 Office Visit 07/01/2017 10:14a [facility], Adelfo Adhikari M.D. 43416 I47.2 Hospitalists I48.91 I10 Office Visit 06/30/2017 10:13a [facility], Binh Alonso, 41318 I47.2 Hospitalists Caleb I48.91 I10 Office Visit 06/30/2017 2:37p [facility] [address] I48.0 [employer] FACC I42.9 I10 Z79.01 R00.0 Office Visit 05/01/2017 11:45a [facility] Of Mariano Garcia, 62087 I48.0 [employer] M.D. I10 Z01.810 G56.02 Office Visit 04/08/2017 8:00a [facility] Magali Ogden, 04055 G56.02 Of Petrona Claros Office Visit 01/02/2017 8:45a [facility] Of Mariano Garcia, 09667 I48.0 [employer] M.D. I10 Office Visit 11/28/2016 12:00p [facility] Of Mariano Garcia, 38887 I48.0 [employer] M.D. I10 Office Visit 02/10/2016 3:00p [facility] Of Mariano Garcia, 59882 I48.0 [employer] M.D. I10 Office Visit 02/11/2015 1:30p [facility] Of Mariano Tan Brand, 01923 427.31 [employer] M.D. 401.9 Office Visit 07/30/2014 11:45a [facility] Of Mariano Garcia, 02437 427.31 [employer] M.D. 401.9 Office Visit 01/06/2014 11:15a [facility] Of Mariano Garcia, 43614 427.31 [employer] M.D. 786.59 Office Visit 12/22/2013 4:39p [facility] Luis M Aldrich, 55006 786.59 Hospitalists N.P. 427.31 401.9 461.9 Office Visit 12/22/2013 1:19p [facility] Of Mariano Garcia, 45290 427.31 [employer] M.D. Office Visit 12/21/2013 4:38p [facility] Nataliia Carvajal N.P. 00475 786.59 Hospitalists 427.31 401.9 461.9 Office Visit 09/25/2013 12:45p [facility] Of Mariano Tan Brand, 05453 427.31 [employer] M.D. Office Visit 09/02/2013 11:15a [facility] Of Mariano Garcia, 63947 427.31 Tristan Claros Office Visit 10/01/2012 10:15a [facility] Mariano Garcia, 81998 427.31 Tristan Claros 401.9 Plan of Care Future Appointment(s):08/01/2018 10:45 am - Mariano Garcia M.D. at [facility]08/22/2018 9:00 am - Mariano Garcia M.D. at [facility]07/14/2018 - Mariano Garcia M.D.I48.0 Paroxysmal atrial fibrillation
--- NOTE | 2018-08-03 14:54 | RAD ---
HISTORY: chest pain COMPARISONS: May 30, 2018 VIEWS: 1: frontal AP view of the chest at 2:50 PM. The patient is obliqued to the right. FINDINGS: LINES AND TUBES: None. CARDIOMEDIASTINAL SILHOUETTE: The cardiac silhouette is enlarged. The cardiomediastinal silhouette is otherwise normal for portable technique. PLEURA: The costophrenic angles are sharp. No pleural abnormalities are noted. LUNG PARENCHYMA: The lungs are clear. ABDOMEN: The upper abdomen is clear. There is no subphrenic gas. BONES AND SOFT TISSUES: No bone or soft tissue abnormalities are noted. IMPRESSION: CARDIOMEGALY
[2018-08-03 15:02] LABS: ABS Basophils 0 10^3/ul (0-0.2); ABS Eosinophils 0 10^3/ul (0-0.6); ABS Monocytes 0.9 10^3/ul (0-0.8); ABS Neutrophils 6.2 10^3/ul (1.5-7.7); ABS Nucleated RBC 0 10^3/ul; Eosinophil % 0.5 % (0-6); Hematocrit 45 % (42-52); Hemoglobin 15.1 g/dl (14.0-18.0); Lymphocyte % 12.6 % (25-47); Mean Corpuscular HGB Conc 34 g/dl (31-36); Mean Corpuscular Hemoglobin 29 pg (27-31); Mean Corpuscular Volume 84 fL (80-94); Mean Platelet Volume 8.1 um3 (7.4-10.4); Nucleated Red Blood Cells % 0.3; Platelet Count 220 10^3/ul (150-450); Red Blood Count 5.29 10^6/ul (4.00-5.40); Red Cell Distribution Width 14 % (10.5-15); White Blood Count 8.2 10^3/ul (3.5-10.8)
[2018-08-03 15:21] LABS: EGFR Non-African American 58.8 (>60)
--- NOTE | 2018-08-03 15:42 | ED ---
HPI Cardiac - HPI Summary HPI Summary: The pt is a 73 y.o male presenting to the [facility] with a chief complaint of Dysrhythmias /palpitation. The pt called the ambulance and was transported to the [facility] and stated that he will have a pacemaker implanted in Saturday of next week. Pt denies chest pain, swelling in either lower extremities, SOB, abd pain , nausea, [place], blurry vision, sore throat, double vision, abd pain, burning urination, fevers, chills, hematuria, hematochezia. Pt does state he easily bruises. After discussion of positive troponin level, pt states he does not wish to stay at the [facility]. The pt states he is seeing Dr. Baeza currently. The patient rates the pain 0/10 in severity. Symptoms aggravated by nothing. Symptoms alleviated by nothing. - History of Current Complaint Chief Complaint: EDDysrhythmPalp Stated Complaint: A FIB Hx Obtained From: Patient Current Severity: None Pain Intensity: 0 Pain Scale Used: 0-10 Numeric Aggravating Factor(s): Nothing Alleviating Factor(s): Nothing Associated Signs and Symptoms: Positive: Other: - Negative swelling in either lower extremities, blurry vision, sore throat, double vision, burning urination , hematuria, hematochezia. Negative: Chest Pain, Headaches, Shortness of Breath , Fever, Chills, Nausea, Abdominal Pain - Additional Pertinent History Primary Care Physician: [id number] - Allergy/Home Medications Allergies/Adverse Reactions: Allergies Allergy/AdvReac Type Severity Reaction Status Date / Time No Known Allergies Allergy Verified 07/14/18 17:46 PMH/Surg Hx/FS Hx/Imm Hx Endocrine/Hematology History: Reports: Hx Anticoagulant Therapy - COUMADIN Cardiovascular History: Reports: Hx Atrial Fibrillation, Hx Coronary Artery Disease, Hx Hypercholesterolemia - HLD, Hx Hypertension - MEDICATED, Other Cardiovascular Problems/Disorders - HX OF A-FIB, FOLLOWED BY DR. GARCIA Denies: Hx Congestive Heart Failure, Hx Pacemaker/ICD, Hx Peripheral Vascular Disease Respiratory History: Denies: Hx Asthma, Hx Chronic Obstructive Pulmonary Disease (COPD), Other Respiratory Problems/Disorders GI History: Denies: Other GI Disorders History: Reports: Hx Kidney Stones - HX OF KIDNEY STONES, NOT RECENT Denies: Other Problems/Disorders Musculoskeletal History: Reports: Hx Arthritis - OA, Hx Tendonitis - Carpal tunnel syndrome, right wrist, left was released Denies: Hx Osteoporosis, Other Musculoskeletal History Sensory History: Reports: Hx Cataracts - RIGHT EYE, Hx Contacts or Glasses - Glasses Denies: Hx Hearing Aid Opthamlomology History: Reports: Hx Cataracts - RIGHT EYE, Hx Contacts or Glasses - Glasses Neurological History: Reports: Other Neuro Impairments/Disorders - Right carpal tunnel syndrome, numbness and tingling Denies: Hx Headaches Psychiatric History: Denies: Hx Anxiety, Hx Depression - Surgical History Surgery Procedure, Year, and Place: RIGHT EYE CATARACT 2001 [facility]. RIGHT KNEE ARTHROSCOPY 2006 [facility]. CARDIOVERSION 10/2009 [facility] DR GARCIA. CHOLECYSTOMY 2011 [facility]. LEFT KNEE LIGAMENT REPAIR Hx Anesthesia Reactions: No Infectious Disease History: No Infectious Disease History: Denies: Traveled Outside the [place] in Last 30 Days - Family History Known Family History: Positive: Hypertension, Other - CVA - Social History Alcohol Use: None Alcohol Amount: NONE FOR PAST 6 MONTHS Hx Substance Use: No Substance Use Type: Reports: None Hx Tobacco Use: No Smoking Status (MU): Former Smoker Type: Pipe Amount Used/How Often: PIPE- 2 BOWLS /DAY FOR 2 YRS Length of Time of Smoking/Using Tobacco: 20 YRS Have You Smoked in the Last Year: No Review of Systems Negative: Fever, Chills Eyes: Other - Negative double vision Negative: Blurred Vision Negative: Sore Throat Positive: Palpitations - Dysrhythmia/tachycardia. Negative: Chest Pain Negative: Shortness Of Breath Gastrointestinal: Other - Negative hematochezia Negative: Abdominal Pain, Nausea Negative: burning, hematuria Positive: Other - Negative swelling in lower extremities Positive: Bruising Negative: Headache Psychological: Normal All Other Systems Reviewed And Are Negative: No Physical Exam - Summary Physical Exam Summary: Appearance: Alert, conversive, nontoxic appearing Skin: Warm, dry, no mottling, no rashes, no contusions HEENT: EOMI, PERRL, dry mucous membranes Neck: No masses on the neck, supple Respiratory: faint sporadic wheeze Cardiovascular: irregularly irregular tachycardia Abdomen: Soft, non-tender Bowel Sounds: Present Musculoskeletal: No CVA tenderness, no obvious deformity, moving all extremities in a grossly normal manner, no swelling to lower extremities Neurological: A&Ox3, CN II-XII Intact, moving all extremities symmetrically Psychiatric: Normal affect and mood Triage Information Reviewed: Yes Vital Signs On Initial Exam: Initial Vitals Pulse Resp Pulse Ox 90 20 97 08/03/18 13:37 08/03/18 13:37 08/03/18 13:37 Vital Signs Reviewed: Yes Diagnostics - Vital Signs Vital Signs Temp Pulse Resp BP Pulse Ox 08/03/18 15:00 90 24 98 08/03/18 14:38 89 13 118/94 98 08/03/18 14:08 89 21 123/98 99 08/03/18 14:00 90 24 97 08/03/18 13:38 97.8 F 87 18 126/99 98 08/03/18 13:37 90 20 97 - Laboratory Lab Results: Lab Results 08/03/18 08/03/18 08/03/18 Range/Units 14:53 14:53 14:53 WBC 8.2 (3.5-10.8) 10^3/ul RBC 5.29 (4.00-5.40) 10^6/ul Hgb 15.1 (14.0-18.0) g/dl Hct 45 (42-52) % MCV 84 (80-94) fL MCH 29 (27-31) pg MCHC 34 (31-36) g/dl RDW 14 (10.5-15) % Plt Count 220 (150-450) 10^3/ul MPV 8.1 (7.4-10.4) um3 Neut % (Auto) 75.8 (38-83) % Lymph % (Auto) 12.6 L (25-47) % Morris % (Auto) 10.6 H (0-7) % Eos % (Auto) 0.5 (0-6) % Baso % (Auto) 0.5 (0-2) % Absolute Neuts (auto) 6.2 (1.5-7.7) 10^3/ul Absolute Lymphs (auto) 1.0 (1.0-4.8) 10^3/ul Absolute Monos (auto) 0.9 H (0-0.8) 10^3/ul Absolute Eos (auto) 0 (0-0.6) 10^3/ul Absolute Basos (auto) 0 (0-0.2) 10^3/ul Absolute Nucleated RBC 0 10^3/ul Nucleated RBC % 0.3 Sodium 141 (135-145) mmol/L Potassium 4.1 (3.5-5.0) mmol/L Chloride 110 (101-111) mmol/L Carbon Dioxide 24 (22-32) mmol/L Anion Gap 7 (2-11) mmol/L BUN 32 H (6-24) mg/dL Creatinine 1.21 H (0.67-1.17) mg/dL Est GFR ( Amer) 71.1 (>60) Est GFR (Non-Af Amer) 58.8 (>60) BUN/Creatinine Ratio 26.4 H (8-20) Glucose 115 H (70-100) mg/dL Calcium 9.2 (8.6-10.3) mg/dL Magnesium 1.9 (1.9-2.7) mg/dL Total Bilirubin 1.90 H (0.2-1.0) mg/dL AST 28 (13-39) U/L ALT 51 (7-52) U/L Alkaline Phosphatase 133 H (34-104) U/L Troponin I 0.37 H* (<0.04) ng/mL B-Natriuretic Peptide 1397 H ( - 100) pg/mL Total Protein 6.1 L (6.4-8.9) g/dL Albumin 4.2 (3.2-5.2) g/dL Globulin 1.9 L (2-4) g/dL Albumin/Globulin Ratio 2.2 (1-3) TSH Pending Result Diagrams: 08/03/18 14:53 08/03/18 14:53 Lab Statement: Any lab studies that have been ordered have been reviewed, and results considered in the medical decision making process. - Radiology Chest X-ray Radiology Interpretation Completed By: Radiologist - Chest X-ray reveals CARDIOMEGALY ED physician has reviewed this radiology report. - EKG 1450 EKG Rhythm: Atrial Fibrillation - [address] Segment: Normal EKG Interpretation: Prolonged ARS, and QTC at 1450 Disposition - Course Course Of Treatment: The pt is a 73 y.o male with a chief complaint of Dysrhythmia/palpitations. The pt during initial evaluation stated he did not wish to stay in the [facility] for futher evaluation. Pt recieved a Chest X-ray and EKG upon entering the [facility]. Lab results tested positive for Troponin and we recommended further monitor to which the pt declined. We discussed pt care with Dr. Baeza and he states that the pt has a follow up appointment in which he will recieve a cardioversion with him tomorrow. The pt was initially departing AMA however [facility], the pt changed his initial decision and is now willing to be admitted for observation. The dx will be N- STEMI, [place], renal insufficeincy, dehydration, CHF, and Heart failure. We discussed pt care with Dr. Hannah and he accepts pt care. The pt will be admitted for observation. - Diagnoses Provider Diagnoses: Non-STEMI (non-ST elevated myocardial infarction), Heart failure, Renal insufficiency, Myocardial infarct, Dehydration, CHF (congestive heart failure) - Physician Notifications Discussed Care Of Patient With: Shira Hannah - Discussion of pt care Instructed by Provider To: Admit As Observation Discharge - Sign-Out/Discharge Documenting (check all that apply): Patient Departure - Admission to [facility] - Discharge Plan Condition: Critical Disposition: ADMITTED TO [facility] Patient Education Materials: Heart Attack (DC), Heart Failure (ED), A-fib ( Atrial Fibrillation) (ED) Referrals: Mariano Garcia MD [Medical Doctor] - Luis M Argueta MD [Primary Care Provider] - Additional Instructions: PLEASE return to the hospital tomorrow for your already scheduled appt for your cardioversion. Take all medications as previously instructed. If you change your mind or you want to be re-evaluated or you think that you might be willing to be admitted, PLEASE return so we can re-evaluate and probably admit you for further care. I am very concerned that you may tonight if you go home and you do not receive appropriate cardiac care which is what we are offering you. - Attestation Statements Document Initiated by Scribe: Yes Documenting Scribe: Aris Masters Provider For Whom Scribe is Documenting (Include Credential): Dr. Bridget Silver Scribe Attestation: I, Aris Masters, scribed for Dr. Bridget Silver on 08/03/18 at 1646.
[2018-08-03] MEDS ORDERED: Diltiazem IV* 5 MG/ML 5 ML VIAL (for loading dose/IV Push) (25 MG) ONE (16:31)
[2018-08-03] MEDS ORDERED: Furosemide IV* 10 MG/ML VIAL (40 MG) IV ONE (16:33)
[2018-08-03] MEDS ORDERED: Aspirin TAB* 325 MG PO ONE (16:33)
[2018-08-03] MEDS ORDERED: Diltiazem IV VIAL* 5 MG/ML 10 ML VIAL IV ONE (17:00)
[2018-08-03] MEDS ORDERED: Diltiazem IV* 5 MG/ML 5 ML VIAL (for loading dose/IV Push) (25 MG) IV SLOW PU ONE (17:00)
[2018-08-03 17:46] LABS: INR 2.05 (0.77-1.02)
[2018-08-03] MEDS ORDERED: Ondansetron INJ* 2 MG/ML VIAL IV PRN (18:12)
[2018-08-03] MEDS ORDERED: Acetaminophen TAB* 325 MG PO PRN (18:12)
[2018-08-03] MEDS ORDERED: Al Hydrox/Mg Hydrox/Simet LIQ* 30 ML UDC PO PRN (18:12)
[2018-08-03] MEDS: Metoprolol Succinate XL TAB* 25 MG PO SCH (20:57)
[2018-08-03] MEDS: Aspirin 81 mg CHEW TAB* 81 MG TAB.CHEW PO SCH (20:58)
[2018-08-03] MEDS ORDERED: Warfarin TAB(*) 3 MG PO ONE (21:00)
--- NOTE | 2018-08-03 22:03 | HP ---
CC: Dr. Luis M Argueta * HISTORY AND PHYSICAL: DATE OF ADMISSION: 08/03/18 PROVIDER: Thalia Rasmussen NP ATTENDING PHYSICIAN WHILE IN THE HOSPITAL: Dr. Kina Last * (dictated by Thalia Rasmussen NP). CHIEF COMPLAINT: 1. Palpitations. 2. Chest pressure. HISTORY OF PRESENT ILLNESS: Mr. Villeda is a 73-year-old male, who carries a past medical history significant for hypertension, AFib, asthma, who presented to the emergency room today stating that for the past 3 days he has had shortness of breath and racing heart. He reports that he felt short of breath with the palpitations. He did have some chest pressure when his heart was racing. He states today he has been lying on the couch for 3 days due to the symptoms. The patient denies any recent illnesses. Denies any fever or chills. Does report chest pain and shortness of breath with the palpitations. Denies any cough or congestion. Denies any hemoptysis. Denies any nausea, vomiting, or diarrhea. Denies any abdominal pain. Denies any hematuria or dysuria. Denies any focal weakness or sensory loss. Denies any dysphagia. Denies any arthralgias or myalgias. No rashes or lesions. Denies any depression or anxiety. Given his symptoms of rapid atrial fibrillation, we were asked to see and evaluate him for admission. PAST MEDICAL HISTORY: Significant for: 1. Hypertension. 2. Atrial fibrillation. 3. Asthma. 4. Cardiomyopathy. PAST SURGICAL HISTORY: 1. He has had a right upper extremity surgery with pinning. 2. Right total knee replacement. 3. Cholecystectomy. MEDICATIONS: Home medications include: 1. Atorvastatin 40 mg p.o. daily. 2. Amiodarone 200 mg p.o. daily. 3. Warfarin 5 mg alternating with 3 mg p.o. daily. 4. Lisinopril 2.5 mg p.o. daily. 5. Ultracet 37.5/325 mg. 6. Magnesium oxide 400 mg p.o. daily. 7. Metoprolol succinate 25 mg p.o. b.i.d. 8. Aspirin 81 mg p.o. daily. ALLERGIES: No known drug allergies. FAMILY HISTORY: Mother's history is unknown; she when the patient was 2. Father's history, he does have a history of hypertension and CVA. SOCIAL HISTORY: He is a former smoker until when he quit smoking. He denies any alcohol use. Surrogate decision maker in the event he is unable to make his own decision is his friend, Kylie Campbell, her phone number is [phone]. He wishes to be a do not resuscitate. REVIEW OF SYSTEMS: There was no documented fever. He denies any significant weight change. No double vision. Denies any ear discharge. Denies any rhinorrhea or sore throat. He did report having chest pain and shortness of breath with his rapid heart rate and palpitations. He currently denies chest pain or shortness of breath at this time. He denies any abdominal pain. Denies any nausea, vomiting, or diarrhea. Denies any dysuria or urinary frequency. Denies any recent sick contacts. Denies any loss of consciousness. Denies any pruritus or skin ulcerations. A review of 14 systems was completed and all others are negative. PHYSICAL EXAMINATION GENERAL: At this time, Mr. Villeda is a 73-year-old male, sitting on the stretcher in the emergency room. He does not appear to be in any acute distress. VITAL SIGNS: Blood pressure is 120/91, heart rate is 91, respirations are 19, O2 saturation on room air is 94%, temperature is 97.8. HEENT: Head is atraumatic, normocephalic. Eyes: EOMs are intact. Sclerae anicteric and not pale. Oral mucosa appeared to be moist. No oropharyngeal erythema. NECK: Supple. LUNGS: Clear to auscultation bilaterally. No wheezes, rales, or rhonchi. CARDIAC: S1, S2. Regular rate and rhythm. There are no murmurs, rubs, or gallops. ABDOMEN: Soft and nontender. Bowel sounds are present x4. EXTREMITIES: Pulses are +2 throughout. +1 lower extremity edema. He is able to move all 4 extremities with 5/5 strength. NEUROLOGIC: He is awake, alert, and oriented x3. His tongue is midline. Cashier Clerk are equal. He has no gross focal neuro deficits. SKIN: Intact. LABORATORY DATA AND DIAGNOSTIC STUDIES: WBCs were 8.2, RBCs were 5.29, hemoglobin was 15.1, hematocrit was 45, platelet count was 220. INR was 2.05. Sodium 141, potassium 4.1, chloride 110, carbon dioxide was 24, anion gap was 7 , BUN was 32, creatinine 1.21. Total bilirubin 1.90, AST was 28, ALT was 15, alkaline phosphatase was 133. Troponin was 0.37. BNP was 1397. TSH was 5.19. He had an electrocardiogram that showed atrial fibrillation at a rate of 89. ASSESSMENT AND PLAN: Mr. Villeda is a 72-year-old male patient that presented to the emergency room today with complaints of palpitations and shortness of breath. While in the emergency room, he had an episode of tachycardia with a heart rate of 170. He was given Cardizem. Initially, the patient wanted to go home, but then have the episode of tachycardia at the rate of 170, and opted to stay overnight for observation. At this time, Mr. Villeda will be admitted under observation status for: 1. Rapid atrial fibrillation. He was given Cardizem in the emergency room and slowed his rate to the 90s. He is no longer short of breath or feeling palpitations. We will observe him on telemetry overnight. At this point, his troponins are mildly elevated at 0.37. We will continue to trend his troponins until peak. I suspect this is related to demand ischemia as the patient reports that he has been having palpitations x for the past 3 days. We will continue his home medications of metoprolol 25 mg p.o. b.i.d., amiodarone 200 mg p.o. daily for rate control. We will also continue him on Coumadin. His INR is therapeutic at this time. He will receive 5 mg of Coumadin tonight and he alternates between 5 and 3. We may want to consider consulting Cardiology if unable to control his heart rate. 2. Cardiomyopathy. The patient will continue on amiodarone, lisinopril, and metoprolol as previously prescribed. The patient recently had a transesophageal echocardiogram and cardioversion. His EF with the transesophageal echocardiogram on 07/15/18 was less than 20%. There is diffuse global hypokinesis of the left ventricle. 3. Hypertension. He will continue his meds as prescribed. 4. DVT prophylaxis. He will continue on his Coumadin as his INR is therapeutic at this point at 2.05. 5. Code status. He wishes to be a do not resuscitate. 6. Fluid, electrolytes, and nutrition. He can have a heart-healthy, no caffeine diet. TIME SPENT: Time spent on this admission was approximately 60 minutes, greater than half the time was spent [id number] with the patient obtaining my history and physical, the other half of the time was spent going over my plan of care and implementing my plan of care. I have discussed this with my attending, Dr. Kina Last, and she is in agreement with my plan. THALIA RASMUSSEN, CAR INSPECTOR [id number]/[facility] #: [id number] KEI
[2018-08-04 06:32] LABS: EGFR Non-African American 59.9 (>60)
[2018-08-04] MEDS: Metoprolol Succinate XL TAB* 25 MG PO SCH (08:49)
[2018-08-04] MEDS: Aspirin 81 mg CHEW TAB* 81 MG TAB.CHEW PO SCH (08:49)
[2018-08-04] MEDS ORDERED: Lisinopril TAB* 5 MG PO SCH (09:00)
[2018-08-04] MEDS ORDERED: Magnesium Oxide TAB* 400 MG PO SCH (09:00)
[2018-08-04] MEDS ORDERED: Atorvastatin* 40 MG TAB PO SCH (09:00)
[2018-08-04] MEDS ORDERED: Amiodarone TAB* 200 MG PO SCH (09:00)
[2018-08-04] MEDS ORDERED: Midazolam* 1 MG/ML 10 ML VIAL (10 MG) ONE (09:12)
[2018-08-04] MEDS ORDERED: fentaNYL* 50 MCG/ML 2 ML VIAL (100 MCG VIAL) ONE (09:12)
[2018-08-04] MEDS ORDERED: Flumazenil* 0.1 MG/ML 5 ML MDV ONE (09:12)
[2018-08-04] MEDS ORDERED: Naloxone* 0.4 MG/ML 1 ML VIAL ONE (09:12)
[2018-08-04 10:26] VITALS: BP 86/48
--- NOTE | 2018-08-04 11:30 | CARD ---
CARDIOVERSION NOTE: DATE OF PROCEDURE: 08/04/18 - ROOM #446 PROCEDURE: Cardioversion. INDICATION: Atrial fibrillation. The patient is a 73-year-old gentleman with a history of paroxysmal atrial fibrillation and flutter. I have known the patient for quite some time. The patient was seen in the office last week. He was in atrial flutter with rapid ventricular response. I had offered him a cardioversion last week with one of my partners. He declined. The patient was scheduled for a cardioversion tomorrow as an outpatient. The patient came to the hospital yesterday with severe palpitations. He was noted to have a heart rate of 160. The patient was admitted to the hospital and scheduled for a cardioversion this morning. DESCRIPTION OF PROCEDURE: The patient was in a fasting state. Informed consent had been obtained prior to the procedure. All labs had been reviewed. The patient's INR was 2.05. The patient was given 6 mg of Versed and 50 mcg of fentanyl for conscious sedation. The patient was cardioverted with 150 joules of synchronized biphasic energy. The patient converted to normal sinus rhythm. The patient tolerated the procedure well. No complications. [id number]/[facility] #: [id number] MTDMisty
[2018-08-04] MEDS ORDERED: Warfarin TAB(*) 5 MG PO SCH (17:00)
--- NOTE | 2018-08-04 20:52 | CONS ---
CARDIOLOGY CONSULTATION: DATE OF CONSULT: 08/04/18 INDICATION FOR CONSULT: Atrial flutter, tachycardia. HISTORY OF PRESENT ILLNESS: The patient is a 73-year-old gentleman with a long history of atrial arrhythmias, who was brought into the hospital yesterday because of significant palpitations and lightheadedness. On arrival to the emergency room, he was found to be in atrial flutter with 2:1 conduction and a heart rate of 170 beats per minute. The patient was admitted to the hospital for evaluation. I had seen the patient in my office last week for the same problem. At that time, his heart rate was 150 beats a minute. At that time, I had offered him to go to the hospital for a cardioversion sometime last week. The patient declined that saying he was feeling fairly comfortable and he was set up to do a cardioversion tomorrow, 08/05/18, with me. Again, he came to the hospital yesterday because of palpitations and lightheadedness. The patient denies any other cardiac symptoms. He denies any chest pain. He denies any orthopnea. He denies any lightheadedness or dizziness. PAST MEDICAL HISTORY: Significant for paroxysmal atrial fibrillation, hypertension, arthritis, hemorrhoid bleeding in the past. PAST SURGICAL HISTORY: Knee surgery on the left, cholecystectomy, tonsillectomy. The patient had a cardiac catheterization in June of 2017, which showed normal coronary arteries. The patient did have a cardioversion on 07/15/18. OUTPATIENT MEDICATIONS: 1. Magnesium supplementation 400 mg a day. 2. Aspirin 81 mg a day. 3. Atorvastatin 40 mg a day. 4. Amiodarone 200 mg a day. 5. Coumadin as directed. 6. Lisinopril 2.5 mg a day. 7. Metoprolol succinate 25 mg b.i.d. ALLERGIES: No known drug allergies. FAMILY HISTORY: Negative for early coronary artery disease or cardiac arrhythmia. SOCIAL HISTORY: The patient lives alone. He is retired. He was a previous smoker. He has not smoked in 10 years. He walks at least an hour a day. He drinks 3 cups of coffee a day. PHYSICAL EXAM: Height is 5 feet 11 inches, weight is 221 pounds, temperature 97.5, heart rate is 93, blood pressure 120/89. Sclerae anicteric. Oropharynx is pink without erythema. Carotids are 2+ without bruits. JVD is normal. Thyroid is normal. Cardiac Exam: Tachycardic. S1, S2 without any murmurs, rubs, or gallops. PMI is normal. Lungs are clear to auscultation. There is no dullness to percussion. Abdomen is soft, nontender, nondistended with normoactive bowel sounds. Extremities show no edema. He has 2+ pulses throughout. The patient is awake, alert, and oriented. He moves all 4 extremities equally. LABORATORY STUDIES: CBC within normal limits. Chemistries within normal limits. BUN 30, creatinine 1.1. Troponins are minimally elevated at 0.37. TSH is normal at 5.19. INR is 2.05. IMPRESSION AND PLAN: This is a 73-year-old gentleman with a known history of atrial arrhythmias and mild cardiomyopathy, who came to the hospital because of palpitations. Again, I had seen the patient last week for the same symptoms and I had offered him a cardioversion last week. He wanted to wait until tomorrow for his cardioversion. He was scheduled for an outpatient cardioversion on 08/05/18. The patient is admitted to the hospital with chest pain and palpitations. At this point, my recommendation is that he undergo cardioversion. The patient' s INR is therapeutic. 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 Case was discussed with Dr. Mcginnis. [id number]/[facility] #: [id number] KEI
--- NOTE | 2018-08-05 05:55 | DS ---
CC: Dr. Argueta; Dr. Garcia DISCHARGE SUMMARY: DATE OF ADMISSION: 08/03/18 DATE OF DISCHARGE: 08/04/18 HISTORY OF PRESENT ILLNESS/HOSPITAL COURSE: This 73-year-old man presented with palpitations and john st pressure. The rest of the history is detailed in the admission note. He has a long history of at rial fibrillation and/or flutter. He is already on warfarin for this. He was scheduled to have a pa cemaker soon. He was given Cardizem in the emergency room. His rhythm was interpreted as atrial fibrillation initi jamie. The following morning, he had a heart rate of [address] Garcia interpreted this as atrial flu tter with rapid conduction. The patient's metoprolol, amiodarone were continued. His INR was therap eutic. He underwent electrical cardioversion on the day of discharge. He did quite well, although only had mild symptoms when he was rapid, mainly palpitations. He was in good condition. He will follow up f or his permanent pacemaker and Cardiology and general medical followup as before. There were no davidson ges made in his medications. FINAL DIAGNOSES: 1. Supraventricular arrhythmias. 2. Cardiomyopathy. 3. Hypertension. DISCHARGE MEDICATIONS: 1. Warfarin as prescribed. 2. Amiodarone 200 mg daily. 3. Magnesium oxide 400 mg daily. 4. Atorvastatin 40 mg daily. 5. Aspirin 81 mg daily. 6. Metoprolol XL 25 mg b.i.d. 7. Lisinopril 2.5 mg daily. 8. Tramadol/acetaminophen 1 tablet every 6 hours p.r.n. CONDITION ON DISCHARGE: Good. DISPOSITION ON DISCHARGE: Home. [id number]/[facility] #: [id number]
== END 2018-08-04 12:45 | disposition home or self-care (01) ==
LOC: ED 13:29 → MEDTELE 18:12
PROVIDERS: ADMIT Hospitalist; ATTEND Internal Medicine
DX: I48.91 Unspecified atrial fibrillation (principal); I48.92 Unspecified atrial flutter; I42.9 Cardiomyopathy, unspecified; I10 Essential (primary) hypertension; J45.909 Unspecified asthma, uncomplicated; I44.7 Left bundle-branch block, unspecified; R06.02 Shortness of breath; Z79.899 Other long term (current) drug therapy; Z79.01 Long term (current) use of anticoagulants; Z87.891 Personal history of nicotine dependence; Z79.82 Long term (current) use of aspirin; Z82.49 Family history of ischemic heart disease and other diseases of the circulatory system
CPT/HCPCS: 36415; 71045; 80048; 80053; 83735; 83880; 84443; 84484; 85025; 85610; 85730; 92960; 93005; 96374; 99156; 99157; 99284; A9270-GY; G0378; J1940; J2250; J2310; J3010; J3490

== ENCOUNTER 2018-08-11 07:45 | Observation (INO) | payer MEDICARE, MEDICAID ==
[2018-08-11] MEDS ORDERED: ceFAZolin* 2 GM* ONE DOSE (Duplex) IVPB (08:30)
[2018-08-11 08:36] LABS: ABS Basophils 0 10^3/ul (0-0.2); ABS Eosinophils 0.2 10^3/ul (0-0.6); ABS Lymphocytes 1.2 10^3/ul (1.0-4.8); ABS Monocytes 0.7 10^3/ul (0-0.8); ABS Neutrophils 5.5 10^3/ul (1.5-7.7); ABS Nucleated RBC 0 10^3/ul; Eosinophil % 2.9 % (0-6); Hematocrit 44 % (42-52); Hemoglobin 15.2 g/dl (14.0-18.0); Lymphocyte % 15.3 % (25-47); Mean Corpuscular HGB Conc 34 g/dl (31-36); Mean Corpuscular Hemoglobin 29 pg (27-31); Mean Corpuscular Volume 84 fL (80-94); Mean Platelet Volume 8.5 um3 (7.4-10.4); Nucleated Red Blood Cells % 0; Platelet Count 208 10^3/ul (150-450); Red Blood Count 5.31 10^6/ul (4.00-5.40); Red Cell Distribution Width 14 % (10.5-15); White Blood Count 7.6 10^3/ul (3.5-10.8)
[2018-08-11 08:43] LABS: INR 1.2 (0.77-1.02)
[2018-08-11 08:58] LABS: EGFR Non-African American 74.1 (>60)
[2018-08-11] MEDS ORDERED: ceFAZolin VIAL 1 GM in NS *SYRINGE * * 10 ML ONE (09:00)
[2018-08-11] MEDS ORDERED: Lidocaine 1% INJ* 10 MG/ML 30 ML SDV ONE (09:08)
[2018-08-11] MEDS ORDERED: fentaNYL* 50 MCG/ML 2 ML VIAL (100 MCG VIAL) ONE (09:11)
[2018-08-11] MEDS ORDERED: Midazolam* 1 MG/ML 10 ML VIAL (10 MG) ONE (09:11)
[2018-08-11] MEDS ORDERED: Iohexol 300* (CONTRAST) 10 ML SDV ONE (09:18)
[2018-08-11] MEDS ORDERED: Acetaminophen TAB* 325 MG PO PRN (10:03)
[2018-08-11] MEDS ORDERED: oxyCODONE/Acetamin 5/325 MG* TAB PO PRN (10:03)
--- NOTE | 2018-08-11 14:13 | RAD ---
Indication: Post pacemaker placement. Comparison: August 03, 2018 Technique: Upright AP 1240 hours Report: RIGHT atrial and RIGHT ventricular level pacemaker leads. Cardiomegaly. Unremarkable central pulmonary vasculature. Mildly tortuous thoracic aorta. No focal pulmonary lesion, compelling alveolar consolidation, pleural effusion, pneumothorax. IMPRESSION: #. Negative for pulmonary edema or pneumothorax post dual chamber pacemaker placement.
[2018-08-11] MEDS: ceFAZolin 1 GM VIAL(*) 1 GM in NS 0.9% 50 ML* 50 ML IVPB SCH (17:58)
[2018-08-12] MEDS: ceFAZolin 1 GM VIAL(*) 1 GM in NS 0.9% 50 ML* 50 ML IVPB SCH ×2 (01:49→08:39)
--- NOTE | 2018-08-12 08:21 | RAD ---
HISTORY: S/P Device Implant COMPARISONS: August 11, 2018 VIEWS: 4: Frontal dual-energy and lateral views of the chest. FINDINGS: CARDIOMEDIASTINAL SILHOUETTE: The cardiac silhouette is enlarged. The cardiomediastinal silhouette is otherwise normal. JUAN: The juan are normal. PLEURA: The costophrenic angles are sharp. No pleural abnormalities are noted. LUNG PARENCHYMA: The lungs are clear. ABDOMEN: The upper abdomen is clear. There is no subphrenic gas. BONES AND SOFT TISSUES: No bone or soft tissue abnormalities are noted. OTHER: A dual-lead pacemaker is noted. IMPRESSION: CARDIOMEGALY. NO ACTIVE CARDIOPULMONARY DISEASE.
[2018-08-12] MEDS ORDERED: fentaNYL* 50 MCG/ML 2 ML VIAL (100 MCG VIAL) ONE (14:00)
[2018-08-12] MEDS ORDERED: Naloxone* 0.4 MG/ML 1 ML VIAL ONE (14:00)
[2018-08-12] MEDS ORDERED: Midazolam* 1 MG/ML 10 ML VIAL (10 MG) ONE (14:01)
[2018-08-12] MEDS ORDERED: Flumazenil* 0.1 MG/ML 5 ML MDV ONE (14:01)
[2018-08-12 17:11] VITALS: BP 120/85
--- NOTE | 2018-08-12 22:20 | CARD ---
CARDIOVERSION REPORT: DATE OF PROCEDURE: 08/12/18 - ROOM #445 PROCEDURE: Cardioversion. INDICATION: Atrial flutter. The patient is a 73-year-old gentleman with a history of atrial flutter. He had just undergone dual-chamber pacemaker implantation yesterday. At that time , he was within normal sinus rhythm. This morning, after his pacemaker was interrogated, he went into atrial flutter and then rapid ventricular response with his atrial flutter. Cardioversion was recommended. DESCRIPTION OF PROCEDURE: The patient was in a fasting state. Informed consent had been obtained prior to the procedure. The patient was given 4 mg of Versed and 50 mcg of fentanyl for conscious sedation. The patient was cardioverted with 150 joules of synchronized biphasic energy. The patient converted to normal sinus rhythm. The patient tolerated the procedure well with no complications. IMPRESSION: The patient's pacemaker was interrogated prior to the cardioversion and it appears that the patient had been tachy paced from atrial flutter to ventricular tachycardia. There was a stable ventricular tachycardia with a perfusion and converted to normal sinus rhythm. The patient's pacemaker will be re-programmed to avoid tachy pacing and his basal rate will be increased to 70 beats per minute. [id number]/[facility] #: [id number] KEI
--- NOTE | 2018-08-13 10:13 | DS ---
DISCHARGE SUMMARY: DATE OF ADMISSION: 08/11/18 DATE OF DISCHARGE: 08/12/18 INDICATION FOR ADMISSION: Sick sinus syndrome, pacemaker implantation. Please see my admission history and physical for details of the patient's presentation. HOSPITAL COURSE: The patient is a 73-year-old gentleman with a history of paroxysmal atrial fibrillation, sick sinus syndrome. The patient has had a number of cardioversions in the last month because of recurrent atrial flutter. Permanent dual chamber pacemaker was recommended for maximization of medical therapy. The patient was brought to the hospital. He underwent a dual chamber pacemaker implantation. It was a Medtronic device. The implantation went without issues. The patient was admitted to the hospital overnight. He had no issues overnight. I interrogated the pacemaker in the morning, it was noted to be functioning normally. The patient subsequently had a rough episode of atrial flutter with rapid ventricular response and the patient ultimately underwent repeat cardioversion back to normal sinus rhythm. The patient was discharged from the hospital in a stable condition. He has no complaints. PHYSICAL EXAMINATION: Vital signs: Today, his heart rate is 70 beats per minute, blood pressure 150/72, respiratory rate is 16, oxygen saturation 98% on room air. Carotids are 2+ without bruits. JVD is normal. Thyroid is normal. Cardiac exam: S1 and S2 without any murmurs, rubs, or gallops. Lungs are clear to auscultation. Abdomen is soft, nontender, nondistended with normoactive bowel sounds. Extremities show no edema. He has 2+ pulses throughout. His pacemaker site is well healed. There are no issues. Chest x-ray today showed normal position of the dual chamber pacemaker. No evidence of pneumothorax. DISCHARGE MEDICATIONS: 1. Coumadin, he will resume that at his usual dose. 2. Amiodarone 200 mg a day. 3. Magnesium 400 mg a day. 4. Atorvastatin 40 mg a day. 5. Aspirin 81 mg a day. 6. Metoprolol succinate 25 mg b.i.d., which we increased to 50 mg b.i.d. 7. Lisinopril 2.5 mg a day. 8. Tramadol p.r.n. FOLLOWUP: The patient will follow up in my office in 2 to 3 weeks. [id number]/[facility] #: [id number] [facility]ITAL[facility]isty
--- NOTE | 2018-08-13 11:11 | OP ---
CC: Balaji Caldwell * DATE OF OPERATION: 08/11/18 - ROOM #445 DATE OF : 45 SURGEON: Mariano Garcia MD ANESTHESIA: Local anesthesia with conscious sedation. PRE-OP DIAGNOSES: 1. Sick sinus syndrome. 2. Atrial fibrillation. POST-OP DIAGNOSES: 1. Sick sinus syndrome. 2. Atrial fibrillation. OPERATIVE PROCEDURE: Dual-chamber pacemaker implantation. INDICATIONS: The patient is a 73-year-old gentleman with a long history of atrial arrhythmias. The patient has been on amiodarone and beta-bhaskar for quite some time for suppression of his atrial fibrillation. The patient has had multiple cardioversions in the last couple of months. The patient's baseline heart rate is 40 beats per minute, thus further medical therapy is limited by his heart rate. Permanent pacemaker was recommended for maximization of medical therapy. ESTIMATED BLOOD LOSS: Nil. COMPLICATIONS: None. DESCRIPTION OF PROCEDURE: The patient was brought to the procedure room in a fasting state. Informed consent had been obtained prior to the procedure. The patient had been off his Coumadin for 4 days. The patient was placed on the procedure table. His left deltopectoral area was cleaned and draped in the usual fashion. 1% lidocaine was used for local anesthesia. Under ultrasound guidance, the axillary vein was entered by a modified Seldinger technique and a guidewire was placed. A second guidewire was placed under the same technique. A 3.5-cm incision was made in the pectoral area and blunt dissection was carried down to the fibrous sheath and a small pocket was fashioned for the pacemaker. Over the first guidewire, a 7-[place] sheath introducer was placed, through which a right ventricular lead was then advanced to the RV apex. The right ventricular lead is a Medtronic model 5076, serial number [id number] at a R-wave sensitivity of 4.5, impedance 791 ohms, threshold 1.1 volts at 0.5 milliseconds. Over the second guidewire, a 7-[place] sheath introducer was placed, through which a right atrial lead was advanced to the high right atrium. The right atrial lead is a Medtronic model 5076, serial number [id number], P-wave sensitivity 2.6, impedance 689 ohms, threshold 0.4 volts at 0.5 milliseconds. The pocket was flushed with antibiotic infused normal saline. A generator was attached appropriately to the atrioventricular lead. The generator is a Digital Signal model W1DR01, serial number [id number]. The device was placed in the pocket and surgical incision was closed in three layers. [id number]/[facility] #: [id number] KEI
== END 2018-08-12 17:34 | disposition home or self-care (01) ==
LOC: CHICATH 07:45 → INTOOBSV 10:30 → MEDTELE 10:30
PROVIDERS: ADMIT Specialist; ATTEND Specialist
DX: I49.5 Sick sinus syndrome (principal); I48.91 Unspecified atrial fibrillation; I47.2 Ventricular tachycardia; I10 Essential (primary) hypertension; J45.909 Unspecified asthma, uncomplicated; M19.90 Unspecified osteoarthritis, unspecified site; R94.31 Abnormal electrocardiogram [ECG] [EKG]; I44.0 Atrioventricular block, first degree; I42.9 Cardiomyopathy, unspecified; R00.0 Tachycardia, unspecified; R00.1 Bradycardia, unspecified
CPT/HCPCS: 33208; 36415; 71045; 71046; 80048; 85025; 85610; 92960; 93005; 96365; 96366; 99156; 99157; C1785; C1898; G0378; J0690; J2250; J2310; J3010

== ENCOUNTER 2019-02-03 09:54 | Day surgery (SDC) | payer MEDICARE, MEDICAID ==
[~2019-02-03 09:54] MED LIST changes: +Acetaminophen TAB* 325 MG PO PRN; -Buffered Lidocaine 0.9% SYRIN* 5 ML/SYR SYRINGE INTRADERM ONE; +Buffered Lidocaine 1% SYRIN* 1 ML/SYRINGE INTRADERM ONE; +Cyclopentolate 1% OPTH.SOL* 2 ML BTL ONE; +Ketorolac 0.5% OPHTH (NF) 0.5 % 5 ML BTL ONE; -Lidocaine 1% INJ* 10 MG/ML 30 ML SDV ONE; +Lidocaine 1%* 5 ML VIAL ONE; -Midazolam* 1 MG/ML 2 ML VIAL (2 MG) ONE; -Naloxone* 0.4 MG/ML 1 ML VIAL IV PRN; +Neomycin/Polymy/Dex OPHTH.OIN* 3.5 GM ONE; +Phenylephrine OPHTH SOL 2.5%* 2 ML ONE; -Propofol* 10 MG/ML 20 ML BTL IV PUSH ONE; +Tetracaine 0.5% OPTH.SOL 4 ML* 1 DROP BTL ONE; +Tropicamide 1% OPTH.SOL* BTL ONE; -fentaNYL* 50 MCG/ML 2 ML VIAL (100 MCG VIAL) ONE
[2019-02-03] MEDS ORDERED: fentaNYL* 50 MCG/ML 2 ML VIAL (100 MCG VIAL) ONE (10:15)
[2019-02-03] MEDS ORDERED: Midazolam* 1 MG/ML 2 ML VIAL (2 MG) ONE ×2 (10:15→11:29)
[2019-02-03 12:19] VITALS: BP 133/79
--- NOTE | 2019-02-03 13:00 | OP ---
DATE OF OPERATION: 02/03/19 - [facility] DATE OF : 45 SURGEON: Dario Dodson MD PREPARATOR: None. ANESTHESIA: Topical with intravenous sedation. PRE-OP DIAGNOSIS: Cataract and glaucoma, right eye. POST-OP DIAGNOSIS: Cataract and glaucoma, right eye. OPERATIVE PROCEDURE: Phacoemulsification and cataract extraction with posterior chamber intraocular lens implant, and iStent implant right eye. COMPLICATIONS: None. ESTIMATED BLOOD LOSS: None. DESCRIPTION OF PROCEDURE: The patient was brought to the operating room and received intravenous sedation. A drop of Tetracaine was placed in his right eye. The patient was prepped and draped in the usual sterile fashion for ophthalmic surgery and attention was directed to the right eye where a speculum was placed. A paracentesis was created at the 11 o'clock position. A 0.1 cc of 1 percent preservative-free Lidocaine was injected into the anterior chamber followed by DisCoVisc. The eye was digitally stabilized while a 2.75 mm keratome was used to create a triplanar clear corneal incision at the 9 o'clock position. A continuous curvilinear capsulorrhexis was created with a cystotome and Utrata forceps. BSS on a cannula was used to hydrodissect the lens from the capsule. Phacoemulsification was performed in a [id number]-yon-uxmxtsz technique to create four fragments, which were removed. Residual cortical material was removed with irrigation and aspiration. DisCoVisc was used to inflate the capsular bag. Supplemental DisCoVisc was used to deepen the anterior chamber and coat the surface of the eye. The patient's head was rotated away from the surgeon and the microscope was rotated toward the surgeon. A gonioprism was placed in the surface of the eye. An iStent on its rn family practice was introduced into the anterior chamber. The iStent was placed into the nasal trabecular meshwork without complications. The rn family practice and prism were removed. The patient's head and the microscope were returned to neutral position. Irrigation and aspiration were performed to remove viscoelastic from the eye. BSS on the cannula was used to hydrate the corneal stroma and seal the wound. At the end of the case, the pupil was round, the lens was centered and stable and the iStent was in good position. The eye pressure appeared normal and the wound was watertight. The speculum was removed and topical Maxitrol ointment was placed on the surface of the eye. The eye was closed, patched, and shielded and the patient was sent to the recovery room in stable condition with postop instructions and followup appointment given. [id number]/[facility] #: [id number] MTDD
== END 2019-02-03 12:13 | disposition home or self-care (01) ==
LOC: OREAST 09:54
PROVIDERS: ATTEND Ophthalmology
DX: H25.041 Posterior subcapsular polar age-related cataract, right eye (principal); H40.1111 Primary open-angle glaucoma, right eye, mild stage; Z79.01 Long term (current) use of anticoagulants; Z95.0 Presence of cardiac pacemaker; I10 Essential (primary) hypertension; I48.91 Unspecified atrial fibrillation; E78.5 Hyperlipidemia, unspecified
CPT/HCPCS: A9270-GY; C1783; J2250; J3010; V2632

== ENCOUNTER 2019-07-28 11:32 | Day surgery (SDC) | payer MEDICAID, MEDICARE ==
--- NOTE | 2019-07-23 17:19 | HP ---
PREOPERATIVE HISTORY AND PHYSICAL: DATE OF SURGERY/ADMISSION: 07/28/19 DATE OF OFFICE VISIT/ENCOUNTER: 07/20/19 ATTENDING SURGEON: Magali Ogden MD * (DICTATED BY TOY RAMOS) PROCEDURE: Excision mass, right elbow. HISTORY OF PRESENT ILLNESS: This is a 74-year-old male who complains of a lump in his right antecubital fossa, it has been present for a couple of months. He says sometimes it is painful. The pain sometimes will radiate all the way down to his hand. He does not recall any injury. He denies any numbness or tingling. 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 He is treated by Dr. Garcia for atrial fibrillation and is on Coumadin. We will plan on having him stop Coumadin 4 days prior to surgical excision of the mass. We will get clearance from Dr. Garcia prior to proceeding with surgery. PAST MEDICAL HISTORY: 1. Atrial fibrillation. 2. Hypertension. 3. Hypercholesterolemia. PAST SURGICAL HISTORY: 1. Left knee surgery. 2. Cholecystectomy. 3. Tonsillectomy. 4. Right carpal tunnel release. 5. Bilateral cataract removal. 6. Pacemaker placement. CURRENT MEDICATIONS: 1. Amiodarone HCl 200 mg daily. 2. Aspirin 81 mg daily. 3. Atorvastatin calcium 40 mg daily. 4. Lisinopril 2.5 mg daily. 5. Magnesium oxide supplement 400 mg daily. 6. Metoprolol succinate ER 25 mg 1 tab twice a day. 7. Warfarin sodium 5 mg, alternate with 3 mg as directed. 8. Warfarin 3 mg 1 tab every night or as directed. ALLERGIES: No known drug allergies. FAMILY MEDICAL HISTORY: Noncontributory. SOCIAL HISTORY: The patient is retired. He is a former smoker, he quit in 1978. He denies recreational drug use. He does not drink alcohol. REVIEW OF SYSTEMS: Negative for general, cephalic, cardiovascular, respiratory , GI, , other musculoskeletal, integumentary, endocrine, neurologic, and hematologic symptoms. Infectious Disease: Negative for history of MRSA, hepatitis C, HIV. PHYSICAL EXAMINATION GENERAL: Well-developed, well-nourished 74-year-old male, in no acute distress. VITAL SIGNS: Height 5 feet 11 inches, weight 215 pounds. Pulse rate 68, blood pressure 130/80. HEENT: Normocephalic, atraumatic. Pupils are equal, round, and reactive to light and accommodation. Extraocular movements are intact. Throat is clear. NECK: Supple. No palpable lymph nodes. PULMONARY: Lungs are clear to auscultation bilaterally. No wheezes, rales, or rhonchi. CARDIOVASCULAR: Regular rate and rhythm. S1 and S2. No murmurs, rubs, or gallops. No edema. ABDOMEN: Positive bowel sounds. Soft and nontender. NEUROLOGIC: Alert and oriented x3. Cranial nerves II through XII are intact. Sensation is intact to light touch. MUSCULOSKELETAL: On exam of the right upper extremity, he has a large 6 x 3 cm mass in the antecubital fossa of his right upper extremity, minimally tender to palpation, but after palpating it he feels the pain going down his arm. He has full range of motion of his elbow with flexion and extension. He can resist elbow flexion without pain. He has some pain resisting supination. Neurovascular function is intact. IMAGING STUDIES: MRI of the right elbow shows a large multilobulated cystic mass in the right elbow. Biceps tendon appears intact. IMPRESSION: Likely ganglion cyst, right elbow. PLAN/RECOMMENDATIONS: The patient is scheduled to undergo an excision mass right elbow with Dr. Ogden on 07/28/19. He will return to the office 10 days postop for followup and suture removal. A prescription for tramadol was e-scribed to the patient's pharmacy for postoperative pain management. TOY RAMOS [id number]/[facility] #: [id number] KEI
[~2019-07-28 11:32] MED LIST changes: -Acetaminophen TAB* 325 MG PO PRN; -Cyclopentolate 1% OPTH.SOL* 2 ML BTL ONE; +Dexamethasone IV* 4 MG/ML 1 ML (4 MG) IV SLOW PU ONE; +Famotidine IV* 10 MG/ML 2 ML (20 mg) IV ONE; -Ketorolac 0.5% OPHTH (NF) 0.5 % 5 ML BTL ONE; +Lactated Ringers 1000 ML Bag* 1,000 ML IV SCH; -Lidocaine 1%* 5 ML VIAL ONE; -Neomycin/Polymy/Dex OPHTH.OIN* 3.5 GM ONE; -Phenylephrine OPHTH SOL 2.5%* 2 ML ONE; -Tetracaine 0.5% OPTH.SOL 4 ML* 1 DROP BTL ONE; -Tropicamide 1% OPTH.SOL* BTL ONE
[2019-07-28] MEDS ORDERED: Dexamethasone IV* 4 MG/ML 1 ML (4 MG) ONE (12:41)
[2019-07-28] MEDS ORDERED: Famotidine IV* 10 MG/ML 2 ML (20 mg) ONE (12:42)
[2019-07-28] MEDS ORDERED: fentaNYL* 50 MCG/ML 2 ML VIAL (100 MCG VIAL) ONE (13:05)
[2019-07-28] MEDS ORDERED: Midazolam* 1 MG/ML 2 ML VIAL (2 MG) ONE (13:05)
[2019-07-28] MEDS ORDERED: Lidocaine 1% INJ* 10 MG/ML 30 ML SDV ONE (13:51)
[2019-07-28] MEDS ORDERED: Bupivacaine 0.5% SDV PF* 30ML VIAL ONE (13:51)
[2019-07-28] MEDS ORDERED: Lidocaine 2% PF * 5 ML VIAL ONE (14:30)
[2019-07-28] MEDS ORDERED: Propofol* 10 MG/ML 20 ML BTL ONE (14:30)
[2019-07-28] MEDS ORDERED: Ondansetron INJ* 2 MG/ML VIAL ONE (14:31)
[2019-07-28] MEDS ORDERED: DiMENhydriNATE IV* 50 MG/ML VIAL IV PUSH PRN (14:53)
[2019-07-28] MEDS ORDERED: Ketorolac INJ* 30 MG/ML 1 ML VIAL IV PRN (14:53)
[2019-07-28] MEDS ORDERED: Naloxone* 0.4 MG/ML 1 ML VIAL IV PRN (14:53)
[2019-07-28] MEDS ORDERED: fentaNYL* 50 MCG/ML 2 ML VIAL (100 MCG VIAL) IV PRN (14:53)
[2019-07-28 16:23] VITALS: BP 151/88
--- NOTE | 2019-07-28 22:43 | OP ---
DATE OF OPERATION: 07/28/19 [facility] DATE OF : 45 SURGEON: Magali Ogden MD [employer] MANAGEMENT TECHNICIAN: TOY Quiroga ANESTHESIA: General. PRE-OP DIAGNOSIS: Right elbow mass. POST-OP DIAGNOSIS: Right elbow mass. OPERATIVE PROCEDURE: Removal of right elbow mass. ESTIMATED BLOOD LOSS: Zero. TOURNIQUET TIME: About 30 minutes. INDICATIONS FOR PROCEDURE: Stalin is a 74-year-old man who noticed a mass in the anterior aspect of his right elbow recently. An MRI shows it to be a cystic mass, likely a ganglion cyst emanating from the biceps tendon. He presents for removal. DESCRIPTION OF PROCEDURE: The patient was brought to the operating room, was given a general anesthetic and placed in a supine position on the operating table with a tourniquet around his right upper arm. The skin of his right upper extremity was prepped and draped in the usual sterile fashion. The upper extremity was exsanguinated and the tourniquet elevated to 250 mmHg. A chevron incision was made centered over the mass, we dissected down to the biceps tendon , which had a large ganglion cyst emanating from it. It was traced all the way down to the insertion of the tendon on the greater tuberosity and indeed there was some partial rupture of the biceps tendon. The mass was sent for pathology. The wound was copiously irrigated with saline and the subcutaneous tissue closed with 3-0 Polysorb sutures. The skin was closed with 4-0 nylon suture. The wound was dressed with Xeroform, 4x4, Webril, and an Kenneth wrap. The patient tolerated the procedure well and was brought to the recovery room in good condition. [id number]/[facility] #: [id number] [facility]
== END 2019-07-28 16:35 | disposition home or self-care (01) ==
LOC: OREAST 11:32
PROVIDERS: ATTEND Orthopaedic Surgery
DX: R22.31 Localized swelling, mass and lump, right upper limb (principal); I48.91 Unspecified atrial fibrillation; E78.00 Pure hypercholesterolemia, unspecified; I10 Essential (primary) hypertension; Z87.891 Personal history of nicotine dependence
CPT/HCPCS: 88304; 88305; J1100; J2250; J2405; J2704; J3010; J3490

== ENCOUNTER 2019-12-14 08:39 | Emergency (ER) | payer MEDICARE, MEDICAID ==
[2019-12-14] MEDS ORDERED: Acetaminophen TAB* 325 MG PO ONE (09:04)
[2019-12-14 09:08] VITALS: BP 153/88
--- NOTE | 2019-12-14 09:29 | ED ---
Lower Extremity - HPI Summary HPI Summary: Patient is a 74-year-old male presenting to the ED with right groin pain. The patient states he was shoveling snow on Saturday when he developed the right groin pain. He is having pain to the right groin and to the lateral portion of the right hip. He is concerned over hernia. He also endorses some slight swelling to the right testicle. He denies any pain to this area. He denies any abdominal pain or pain to the testicles or penis. He denies any pain to the buttocks. Pain is only with palpation of the right hip as well as when lying to sitting or sitting to standing. He states ambulation does not worsen the pain. At rest, he denies any pain. He denies any worsening pain with standing. No erythema noted per patient. No bruising noted. He denies any falls. He has never had a history of groin pain or hernias. - History of Current Complaint Chief Complaint: EDExtremityLower Stated Complaint: GROIN PAIN PER EMS Time Seen by Provider: 12/14/19 08:49 Hx Obtained From: Patient Mechanism Of Injury: Other - groin pain Onset of Pain: Hours, Days Onset/Duration: Days Severity Initially: Moderate Severity Currently: Moderate Pain Intensity: 2 Pain Scale Used: 0-10 Numeric Timing: Constant Location: Is Discrete @ - right sided groin pain Character Of Pain: Aching Associated Signs And Symptoms: Negative: Swelling, Redness, Bruising, Weakness, Dizziness Aggravating Factor(s): Movement Alleviating Factor(s): Rest Able to Bear Weight: Yes - Allergies/Home Medications Allergies/Adverse Reactions: Allergies Allergy/AdvReac Type Severity Reaction Status Date / Time No Known Allergies Allergy Verified 07/28/19 12:58 PMH/Surg Hx/FS Hx/Imm Hx Previously Healthy: Yes Endocrine/Hematology History: Reports: Hx Anticoagulant Therapy - COUMADIN Denies: Hx Diabetes Cardiovascular History: Reports: Hx Angina, Hx Atrial Fibrillation, Hx Hypercholesterolemia, Hx Hypertension - CONTROLLED WITH DAILY MEDS, Hx Pacemaker /ICD - 2018PACEMAKER/ICD- WISAM [id number] MEDTRONICMR CONDITIONAL, Other Cardiovascular Problems/Disorders - HX OF A-FIB, FOLLOWED BY DR. KENNEDY Denies: Hx Congestive Heart Failure, Hx Coronary Artery Disease, Hx Myocardial Infarction, Hx Peripheral Vascular Disease, Hx Valvular Heart Disease Respiratory History: Denies: Hx Asthma, Hx Chronic Obstructive Pulmonary Disease (COPD), Other Respiratory Problems/Disorders GI History: Denies: Other GI Disorders History: Reports: Hx Kidney Stones - STATES LONG TIME AGO, WENT TO SURGERY Denies: Hx Chronic Renal Failure, Hx Dialysis, Hx Renal Disease, Other Problems/Disorders Musculoskeletal History: Reports: Hx Arthritis - OA, Hx Tendonitis - Carpal tunnel syndrome, right wrist, left was released Denies: Hx Osteoporosis, Other Musculoskeletal History Sensory History: Reports: Hx Cataracts - BILATERAL, Hx Contacts or Glasses - GLASSES, Hx Deafness - right ear deafness, Hx Hearing Problem Denies: Hx Hearing Aid Comment Only: Hx Glaucoma - GLAUCOMA RT EYE? Opthamlomology History: Reports: Hx Cataracts - BILATERAL, Hx Contacts or Glasses - GLASSES Comment Only: Hx Glaucoma - GLAUCOMA RT EYE? Neurological History: Reports: Other Neuro Impairments/Disorders - Right carpal tunnel syndrome, numbness and tingling Denies: Hx Headaches Psychiatric History: Denies: Hx Anxiety, Hx Depression, Hx Panic Disorder - Surgical History Surgery Procedure, Year, and Place: 2018 PACEMAKE ICD- WISAM W1DR01 MEDTRONIC - MR CONDITIONAL [facility]. Rt SHOULDER. AMAYA KNEE - REPAIR TENDON/ARTHROSCOPIC. 2018 BILATERAL CATARACTS. AMAYA CARPAL TUNNEL [facility]. 5 CARDIOVERSION [facility] Hx Anesthesia Reactions: No - Immunization History Date of Influenza Vaccine: 2018 Hx Pertussis Vaccination: No Immunizations Up to Date: Yes Infectious Disease History: No Infectious Disease History: Denies: Traveled Outside the [place] in Last 30 Days - Family History Known Family History: Positive: Hypertension, Other - CVA - Social History Occupation: Unemployed Lives: With Family Alcohol Use: None Alcohol Amount: 1 /month Hx Substance Use: No Substance Use Type: Reports: None Hx Tobacco Use: No Smoking Status (MU): Former Smoker Type: Pipe Amount Used/How Often: PIPE- 2 BOWLS /DAY FOR 2 YRS Length of Time of Smoking/Using Tobacco: 20 YRS Have You Smoked in the Last Year: No Review of Systems Negative: Fever, Chills, Skin Diaphoresis Negative: Palpitations, Chest Pain Negative: Shortness Of Breath, Cough Negative: Abdominal Pain, Vomiting, Diarrhea, Nausea Genitourinary: Other - slight swelling of the R testicle without pain, R groin/ inguinal pain Positive: Arthralgia - pain to the R lateral hip. Negative: Myalgia All Other Systems Reviewed And Are Negative: Yes Physical Exam Triage Information Reviewed: Yes Vital Signs On Initial Exam: Initial Vitals Temp Pulse Resp BP Pulse Ox 98.2 F 70 16 0/0 95 12/14/19 08:42 12/14/19 08:42 12/14/19 08:42 12/14/19 08:42 12/14/19 08:42 Vital Signs Reviewed: Yes Appearance: Positive: Well-Appearing, Well-Nourished Skin: Positive: Warm, Skin Color Reflects Adequate Perfusion Head/Face: Positive: Normal Head/Face Inspection Eyes: Positive: EOMI, EMMY, Conjunctiva Clear Neck: Positive: Supple, Nontender, No Lymphadenopathy Respiratory/Lung Sounds: Positive: Clear to Auscultation, Breath Sounds Present Cardiovascular: Positive: RRR, Pulses are Symmetrical in both Upper and Lower Extremities Abdomen Description: Positive: Other: - slight swelling of the R testicle without pain, R groin/inguinal pain. Negative: CVA Tenderness (R), CVA Tenderness (L), Distended, Guarding, Hernia @, Hepatomegaly, McBurney's Point Tenderness Musculoskeletal: Positive: Normal, Strength/ROM Intact Neurological: Positive: Speech Normal Psychiatric: Positive: Affect/Mood Appropriate AVPU Assessment: Alert Procedures - Sedation Patient Received Moderate/Deep Sedation with Procedure: No Diagnostics - Vital Signs Vital Signs Temp Pulse Resp BP Pulse Ox 12/14/19 09:00 69 95 12/14/19 08:53 70 153/88 95 12/14/19 08:52 70 95 12/14/19 08:42 98.2 F 70 16 0/0 95 - Laboratory Lab Statement: Any lab studies that have been ordered have been reviewed, and results considered in the medical decision making process. Lower Extremity Course/Dx - Course Course Of Treatment: This patient is evaluated for right sided hip and groin pain. Patient states he was shoveling snow when the pain first occurred. He continues to be ambulatory. He denies any fevers. On physical examination, there is only slight pain to palpation of the right hip, no pain to palpation of the right groin. No evidence of a hernia. No pain on palpation to the abdomen throughout. No pain to the testicles. No lesions or erythema identified. No warmth. Symptoms are not worse with standing. Patient continues to be ambulatory. Pt will f/u with PCP and tylenol given in the ED. encouraged heat to the area. Patient will be diagnosed with groin pain. - Diagnoses Differential Diagnosis/HQI/PQRI: Positive: Sprain, Strain, Other - hernia, swelling of testicle Provider Diagnoses: Strain of right groin Discharge ED - Sign-Out/Discharge Documenting (check all that apply): Patient Departure - Discharge Plan Condition: Stable Disposition: HOME Referrals: Luis M Argueta MD [Primary Care Provider] - Additional Instructions: Please follow up with PCP Heat to the area Tylenol 650mg three times daily for pain - Billing Disposition and Condition Condition: STABLE Disposition: Home
--- OUTSIDE RECORDS SUMMARY | 2019-12-14 09:33 | XMS REPORT | Continuity of Care Document ---
:1945 External Reference #:[id number] Author Name Dario Arreguin PA Address [address], [address] [place] [address] Care Team Providers Name Role Phone Luis M Argueta MD - Family Medicine Care Team Information Bingo Attendant [phone] Problems Active Problems Provider Date Hyperlipidemia Dario Arreguin PA Onset: 11/03/2019 Benign essential hypertension Dario Arreguin PA Onset: 11/03/2019 Social History Type Date Description Comments Sex Unknown ETOH Use Denies alcohol use Tobacco Use Start: Unknown End: Unknown Patient is a former smoker Recreational Drug Use Denies Drug Use Smoking Status Reviewed: 11/03/19 Patient is a former smoker Allergies, Adverse Reactions, Alerts Description No Known Drug Allergies Medications Active Medications SIG Qnty Indications Ordering Provider Date Metoprolol Succinate Take One Tablet By Unknown ER Mouth Twice A Day 25mg Tablets ER 24HR Amiodarone HCL Take One Tablet By Unknown 200mg Mouth Every Day Tablets Lisinopril Mariano Garcia, 2.5mg MD Tablets Warfarin Sodium Floyd Green, 5mg M.DLily Tablets Atorvastatin Calcium 1 by mouth every Unknown day 40mg Tablets Magnesium 1 by mouth every Unknown 400mg Tablets day for the prevention of headache Aspir-Low 1 by mouth twice a Unknown 81mg Tablets day DR Laboy Description No Information Available Vital Signs Date Vital Result Comment 11/03/2019 1:08pm BP Systolic 132 mmHg BP Diastolic 83 mmHg Body Temperature 97.9 F Heart Rate 70 /min Respiratory Rate 18 /min Height 71 inches 5'11" Weight 217.12 lb Pain Level 0 BMI (Body Mass Index) 30.3 kg/m2 BSA (Body Surface Area) 2.18 m2 [place] body weight in kilograms 78 kg O2 % BldC Oximetry 95 % Results Description No Information Available Procedures Description No Information Available Medical Devices Description No Information Available Encounters Type Date Location Provider Dx Diagnosis Office Visit 11/03/2019 Urology Dario Arreguin, Z12.5 Encounter for 1:00p PA screening for malignant neoplasm of prostate R31.0 Gross hematuria Assessments Date Code Description Provider 11/03/2019 Z12.5 Encounter for screening for malignant Dario Arreguin PA neoplasm of prostate 11/03/2019 R31.0 Gross hematuria Dario Arreguin PA Plan of Treatment Future Appointment(s):11/13/2019 8:00 am - Ramírez Rasmussen M.D. at [id number] - Dario Arreguin PAZ12.5 Encounter for screening for malignant neoplasm of prostateNew Labs:Prostate Specific Antigen, Ordered: Comments:I do not see any PSAs and his outpatient chart so a PSA will be drawn achmhL28.0 Gross hematuriaNew Labs:Basic Metabolic Panel, Ordered: Prostate Specific Antigen, Ordered: 11/03/19Ua RFX Micro & Culture II, Ordered: 11/03/19Comments:I'll have the patient collect a urine specimen drop it off the lab. From the primary care's office I see a positive dipstick but no microscopy. The patient had a CT of the abdomen and pelvis with andwithout contrast to return for cystoscopy if appropriate Functional Status Description No Information Available Mental Status Description No Information Available Referrals Description No Information Available
--- OUTSIDE RECORDS SUMMARY | 2019-12-14 09:33 | XMS REPORT | Continuity of Care Document ---
:1945 External Reference #:[id number] Author Name Ramírez Rasmussen M.D. 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 Onset: 11/13/2019 Malignant tumor of kidney Ramírez Rasmussen M.D. Onset: 11/13/2019 Ancelmo hematuria Ramírez Rasmussen M.D. Onset: 11/13/2019 Social History Type Date Description Comments Sex Unknown ETOH Use Denies alcohol use Tobacco Use Start: Unknown End: Unknown Patient is a former smoker Recreational Drug Use Denies Drug Use Smoking Status Reviewed: 11/10/19 Patient is a former smoker Allergies, Adverse [...] twice a Unknown 81mg Tablets day DR History Medications Cephalexin 1 tablet by mouth Ramírez Rasmussen, 11/13/2019 - 500mg Capsules once given in M.D. 11/14/2019 office Immunizations Description No Information Available Vital Signs Date Vital Result Comment 11/13/2019 7:54am BP Systolic 137 mmHg BP Diastolic 85 mmHg Body Temperature 96.8 F Heart Rate 69 /min Respiratory Rate 17 /min Height 71 inches 5'11" Weight 221.00 lb Pain Level 0 BMI (Body Mass Index) 30.8 kg/m2 BSA (Body Surface Area) 2.20 m2 [place] body weight in kilograms 78 kg O2 % BldC Oximetry 97 % 11/03/2019 1:08pm BP Systolic 132 mmHg BP Diastolic 83 mmHg Body Temperature 97.9 F Heart Rate 70 /min Respiratory Rate 18 /min Height 71 inches 5'11" Weight 217.12 lb Pain Level 0 BMI (Body Mass Index) 30.3 kg/m2 BSA (Body Surface Area) 2.18 m2 [place] body weight in kilograms 78 kg O2 % BldC Oximetry 95 % Results Test Acquired Date Facility Test Result H/L Range Note Act Partial 11/19/2019 [facility] Act Partial 27.4 seconds Normal 23.4-35.0 [address] [place] [place] [address] [phone] Anticoagulant Therapy? YES Date of Last Dose: 11/16/2019 Time of Last Dose: 0900 Protime 11/19/2019 [facility] Protime 16.5 seconds High 12.0-14.[address] [place] [address] [phone] Inr 1.3 High 0.9-1.1 2 Anticoagulant Therapy? YES Date of Last Dose: 11/16/2019 Time of Last Dose: 0900 CBC W/Automated 11/13/2019 [facility] White Blood 6.9 K/uL Normal 3.4-10.5 [address] [place] [address] [phone] Red Blood Count 5.17 M/uL Normal 4.20-5.80 Hemoglobin 15.0 gm/dL Normal 12.8-17.0 Hematocrit 45.8 % Normal 38.0-48.0 Mean Cell Volume 88.6 fl Normal 80.0-96.0 Mean Corpuscular HGB 29.0 pg Normal 27.0-33.0 Mean Corpuscular HGB Conc 32.8 g/dL Normal 31.7-36.0 Platelet Count 216 K/uL Normal 155-360 Red Cell Distri Width SD 42.5 fl Normal 36-51 Red Cell Distri Width %CV 13.2 % Normal 11.6-15.8 Mean Platelet Volume 10.8 fl High 6.6-10.6 Neut% 71.1 % Normal 33.0-73.0 Lymph % 16.1 % Low 20.0-42.0 Dukes % 9.2 % Normal 0.0-10.0 Eo% 2.8 % Normal 0.0-6.6 Bas% 0.4 % Normal 0.0-1.1 Immature Grans 0.4 % Normal 0.0-5.0 NRBC % 0.0 /100WBC < 10/ 100 WBC Neut# 4.89 K/uL Normal 1.8-7.0 Lymph # 1.11 K/uL Normal 1.0-4.0 Dukes # 0.63 K/uL Normal 0.0-0.8 Eos # 0.19 K/uL Normal 0.0-0.5 Baso # 0.03 K/uL Normal 0.0-0.1 Immature Grans Absolute 0.03 K/uL NRBC # 0.00 K/uL Comprehensive Metabolic 11/13/2019 [facility] Glucose 113 mg/dL High 74-106 Panel [address] [place] [address] [phone] BUN 18 mg/dL Normal 7-18 Creatinine 1.2 mg/dL Normal 0.6-1.3 Glom Filtration Rate, Estimate >60 mL/min >60 If >60 mL/min >60 4 BUN/Creat 15.0 ratio Sodium 137 mmol/L Normal 136-145 Potassium 4.2 mmol/L Normal 3.5-5.1 Chloride 105 mmol/L Normal 98-107 Carbon Dioxide 27 mmol/L Normal 21-32 Anion Gap 5 mEq/L Low 8-16 Calcium 8.8 mg/dL Normal 8.5-10.1 Total Protein 7.3 g/dL Normal 6.4-8.2 Albumin 4.1 g/dL Normal 3.4-5.0 Globulin 3.2 g/dL Normal 1.9-4.3 Alb/Glob 1.3 ratio Bilirubin,Total 1.5 mg/dL High 0.2-1.0 Sgot/Ast 25 U/L Normal 15-37 SGPT/Alt 46 U/L Normal 12-78 Alkaline Phosphatase 125 U/L High 45-117 Urine Dipstick 11/13/2019 [facility] Ua Color Yellow Yellow Ua Clarity Clear Clear Ua Leuko Negative Negative Ua Nitrite Negtive Negative Ua Urobilinogen 0.2 0.2 - 1.0 E.U./dL Ua Protein Negative Negative Ua PH 5.5 Low 6.5-7.5 Ua Blood 25 High Negative Ua Specific [place] 1.020 1.010-1.030 Ua Ketones Negative Negative Ua Bilirubin Negative Negative Ua Glucose Negative Negative Ua RFX Micro & 11/03/2019 [facility] Urine Color Dark-Brown Yellow Culture II [address] [place] [address] [phone] Urine Clarity Cloudy Clear Urine Glucose - Dipstick NEGATIVE mg/dL Negative Urine Bilirubin - Dipstick NEGATIVE Negative Urine Ketone TRACE mg/dL Negative Urine Specific [place] 1.022 Normal 1.010-1.030 Urine Blood LARGE Abnormal Negative Urine PH 5.5 Low 6.5-7.5 Urine Protein - Dipstick 100 mg/dL Abnormal Negative Urine Urobilinogen - Dipstick < 2.0 mg/dL < 2.0 Urine Nitrite - Dipstick NEGATIVE Negative Urine Leuk Esterase TRACE Abnormal Negative Urine RBC > 50 rbc/hpf Abnormal 0-2 Urine WBC 6-10 wbc/hpf 0-5 Urine Bacteria FEW None Seen Urine Mucus LARGE None Seen Culture If 11/03/2019 [facility] Culture If CULTURE TO 5 Indicated Comment [address] Indicated Comment FOLLO <[place] [address] NOTE> [phone] Urine Culture 11/03/2019 [facility] Urine Culture URETHRAL SIM [address] [place] [address] [phone] Quantity < 10,000 CFU/mL Basic Metabolic Panel 11/03/2019 [facility] Glucose 94 mg/dL Normal 74-106 6 [address] [place] [address] [phone] BUN 17 mg/dL Normal 7-18 Creatinine 1.1 mg/dL Normal 0.6-1.3 Glom Filtration Rate, Estimate >60 mL/min >60 If >60 mL/min >60 7 BUN/Creat 15.4 ratio Sodium 140 mmol/L Normal 136-145 Potassium 4.3 mmol/L Normal 3.5-5.1 Chloride 106 mmol/L Normal 98-107 Carbon Dioxide 30 mmol/L Normal 21-32 Anion Gap 4 mEq/L Low 8-16 Calcium 8.7 mg/dL Normal 8.5-10.1 Laboratory test 11/03/2019 [facility] Prostate 6.37 ng/mL < 4.0 [address] [place] [place] [address] [phone] 1 R31.0 C64.2 2 THERAPEUTIC INR RANGE: 2.0 - 3.0 DVT, Pulmonary embolus, prophylaxis against venous thrombosis or systemic embolization in high risk patients. 2.5 - 3.5 Mechanical heart valves 3 R31.0 C64.2 4 Note: Persistent reduction for 3 months or more in an eGFR <60 mL/min/1.73 m2 defines CKD. Patients with eGFR values >/=60 mL/min/1.73 m2 may also have CKD if evidence of persistent proteinuria is present. The original MDRD equation for estimated GFR is not valid for patients less than 18 years of age. Additional information may be found at www.kdoqi.org. 5 CULTURE TO FOLLOW 6 R31.0 Z12.5 7 Note: Persistent reduction for 3 months or more in an eGFR <60 mL/min/1.73 m2 defines CKD. Patients with eGFR values >/=60 mL/min/1.73 m2 may also have CKD if evidence of persistent proteinuria is present. The original MDRD equation for estimated GFR is not valid for patients less than 18 years of age. Additional information may be found at www.kdoqi.org. 8 THIS ASSAY IS NOT INTENDED A CANCER SCREENING TEST The concentration of PSA in a given specimen, determined with assays from different manufacturers, can vary due to differences in assay methods and reagent specificity. Values obtained from different assay methods cannot be used interchangeably. Method: [employer] [place] Chemiluminescent immunoassay. Procedures Date Code Description Status 11/13/2019 64084 Cystoscopy Completed 11/13/2019 10464 Measurement Post Voiding Residual Urine By Completed Ultrasound,Non-Imaging 11/13/2019 06106 complex uroflowmetry electronic Completed Medical Devices Description No Information Available Encounters Type Date Location Provider Dx Diagnosis Office Visit 11/13/2019 8:00a Urology Ramírez Rasmussen M.D. R31.0 Gross hematuria C64.2 Malignant neoplasm of left kidney, except renal pelvis R97.20 Elevated prostate specific antigen [PSA] Office Visit 11/03/2019 1:00p Urology Dario Arreguin, Z12.5 Encounter for PA screening for malignant neoplasm of prostate R31.0 Gross hematuria Assessments Date Code Description Provider 11/13/2019 R31.0 Gross hematuria Ramírez Rasmussen M.D. 11/13/2019 C64.2 Malignant neoplasm of left kidney, except Ramírez Rasmussen M.D. renal pelvis 11/13/2019 R97.20 Elevated prostate specific antigen [PSA] Ramírez Rasmussen M.D. 11/03/2019 Z12.5 Encounter for screening for malignant Dario Arreguin PA neoplasm of prostate 11/03/2019 R31.0 Gross hematuria Dario Arreguin PA Plan of Treatment Future Appointment(s):05/16/2020 1:15 pm - Ramírez Rasmussen M.D. at [id number]/2020 - Ramírez Rasmussen M.D.R31.0 Gross hematuriaComments:Pt completed workup today, no lesions seen in bladder, he does have enlarged prostate. Will repeat UA in 6 [id number] Malignant neoplasm of left kidney, except renal pelvisComments:Today I discussed with the patient and his sister to findings of the CT scan that are worrisome for a malignancy in the left kidney. We did discuss the role for biopsy. Given the size of 5.6 centimeters I do not feel that the mass is amenable to cryotherapy, I reduced below the best options would connie partial nephrectomy possibly a radical nephrectomy. We'll review the patient's imaging at [facility] and I will get back to the patient with the plan meanwhile I will check his alkaline phosphatase today as well as a liver function test.R97.20 Elevated prostate specific antigen [PSA] Comments:Patient does have a large prostate seen on the CT scan and the PSA is slightly overweight expected for his age. We'll plan to repeat the PSA a few months and if rising then we'll have to go for biopsy. Functional Status Description No Information Available Mental Status Description No Information Available Referrals Description No Information Available
== END 2019-12-14 09:41 | disposition home or self-care (01) ==
LOC: ED 08:39
DX: S39.011A Strain of muscle, fascia and tendon of abdomen, initial encounter (principal); X50.9XXA Other and unspecified overexertion or strenuous movements or postures, initial encounter; Y92.9 Unspecified place or not applicable; I48.91 Unspecified atrial fibrillation; E78.00 Pure hypercholesterolemia, unspecified; I10 Essential (primary) hypertension; Z95.0 Presence of cardiac pacemaker; Z87.442 Personal history of urinary calculi; Z87.891 Personal history of nicotine dependence; Z79.01 Long term (current) use of anticoagulants
CPT/HCPCS: 99282; A9270-GY